=== PATIENT | female | born 1975 | race Caucasian/White ===

== ENCOUNTER 2016-08-15 00:05 | Emergency (ER) | payer BC, OTHER ==
[2016-08-15] MEDS ORDERED: oxyCODONE/ACET 5/325 Prepack 4 PO ONE (01:03)
[2016-08-15] MEDS ORDERED: KETOROLAC 60 MG/2 ML VIAL ONE (01:03)
[2016-08-15] MEDS ORDERED: CHERRY SYRUP 10 ML UDC PO ONE (01:03)
[2016-08-15] MEDS ORDERED: DEXAMETHASONE 10 MG/ML VIAL ONE (01:03)
[2016-08-15] MEDS ORDERED: ACETAMINOPHEN 160 MG/5 ML SUSP UDC ONE (01:59)
== END 2016-08-15 01:40 | disposition home or self-care (01) ==
DX: M79.674 Pain in right toe(s) (principal); F17.200 Nicotine dependence, unspecified, uncomplicated
CPT/HCPCS: 96372; 99283; A9270

== ENCOUNTER 2017-02-16 11:10 | Day surgery (SDC) | payer BC ==
[2017-02-16 11:41] LABS: BILIRUBIN,URINE NEGATIVE (NEGATIVE)
[2017-02-16 11:52] LABS: HCG UR QUAL NEGATIVE; UA w/ MICROSCOPIC CHARGE YES
[2017-02-16 11:53] LABS: WBC,URINE 0-3 /HPF (0-5)
[2017-02-16 11:54] LABS: UR CULTURE IF IND NOT INDICATED
[2017-02-16] MEDS ORDERED: KETOROLAC 60 MG/2 ML VIAL IM STA (13:19)
[2017-02-16] MEDS ORDERED: KETOROLAC 60 MG/2 ML VIAL ONE (13:26)
--- NOTE | 2017-02-16 13:27 | ED Physician Documentation ---
History of Present Illness - Stated complaint Stated Complaint: FEMALE /ABD PX - Chief complaint Chief Complaint: Abd Pain - Additonal information Additional information: hx from pt 41 f denies preg s/p tubal to ER with 15 days of heavy vag bleed and pelvic pain Last nl menses was end December/january this bleeding started mid January at one point changing pad or tampon q 1hr now just spotting pelvic pain is a pressure as if something is falling out no fever + nausea no vag dc denies any chance of STD has not had a pelvic exam for 20 years and prefers not to have one today either but will reconsider if needed after her ultrasound Review of Systems Constitutional: denies: Fever Cardiac: denies: Chest pain / pressure Respiratory: denies: Dyspnea GI: denies: Abdominal Pain : reports: Vaginal bleeding, Control (tubal). 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: section - Present Medications Home Medications: Ambulatory Orders Medication Instructions Recorded Confirmed Albuterol Sulfate [Proair Hfa] 8.5 gm IH TID 04/06/13 02/16/17 - Allergies Allergies/Adverse Reactions: Allergies Allergy/AdvReac Type Severity Reaction Status Date / Time codeine [Codeine] Allergy Hives Verified 11/12/13 19:59 - Social History Does the pt smoke?: Yes Smoking Status: Current every day smoker Does the pt have substance abuse?: No PD ED PE NORMAL - Vitals Vital signs reviewed: Yes - Neck Neck: Supple, no meningeal sign - Cardiac Cardiac: RRR - Respiratory Respiratory: No respiratory distress, Clear bilaterally - Abdomen Abdomen: Soft, Other (mod lower abd TTP s peritoneal signs) - Female Female : Pt declined - Derm Derm: Normal color - Neuro Neuro: Alert and oriented X 3 Results - Vitals Vitals: Vital Signs - 24 hr 02/16/17 02/16/17 02/16/17 11:12 13:32 15:30 Temperature 36.8 C 37.0 C Heart Rate 80 78 65 Respiratory 17 18 Rate Blood Pressure 190/103 H 150/82 H 183/110 H O2 Saturation 99 97 99 02/16/17 02/16/17 02/16/17 17:25 17:28 17:31 Temperature Heart Rate 72 67 Respiratory 20 Rate Blood Pressure 181/105 H 119/74 O2 Saturation 100 97 02/16/17 17:40 Temperature Heart Rate 66 Respiratory 14 Rate Blood Pressure O2 Saturation Oxygen O2 Source Room air - Labs Labs: Laboratory Tests 02/16/17 02/16/17 11:20 13:33 WBC 9.9 RBC 4.61 Hgb 13.5 Hct 40.9 MCV 88.6 MCH 29.2 MCHC 33.0 RDW 13.4 Plt Count 272 MPV 9.0 Neut # 6.1 Lymph # 3.1 [place] # 0.6 Eos # 0.1 Baso # 0.0 Absolute Nucleated RBC 0.00 Nucleated RBCs 0.0 Urine Color YELLOW Urine Clarity HAZY Urine pH 7.0 Ur Specific [place] 1.020 Urine Protein NEGATIVE Urine Glucose (UA) NEGATIVE Urine Ketones NEGATIVE Urine Occult Blood LARGE H Urine Nitrite NEGATIVE Urine Bilirubin NEGATIVE Urine Urobilinogen 0.2 (NORMAL) Ur Leukocyte Esterase NEGATIVE Urine RBC 6-10 H Urine WBC 0-3 Ur Squamous Epith Cells MOD Squamous H Urine Bacteria Few Ur Microscopic Review INDICATED Urine Culture Comments NOT INDICATED Urine HCG, Qual NEGATIVE - Rads (name of study) pelvic sono with doppler Radiology: See rad report (heterogeneous endometrium, probable 8 cm hemorrhagic right ovarian cyst with some periph blood flow or less likely a posterior leiomyoma (per d/w rad)) PD MEDICAL DECISION MAKING - ED course ED course: Dr Daniel to ER to see pt and will take her to the OR Departure - Departure Disposition: ED Transfer to [facility] Clinical Impression: Hemorrhagic ovarian cyst, Vaginal bleeding Discharge Date/Time: 02/16/17 18:11
[2017-02-16 13:47] LABS: BASOPHILS % (AUTO) 0.5 %; EOSINOPHILS # (AUTO) 0.1 10^3/uL (0.0-0.7); EOSINOPHILS % (AUTO) 1.2 %; HCT - HEMATOCRIT 40.9 % (37.0-47.0); HGB - HEMOGLOBIN 13.5 g/dL (12.0-16.0); LYMPHOCYTES # (AUTO) 3.1 10^3/uL (1.5-3.5); LYMPHOCYTES % (AUTO) 31.4 %; MEAN CORPUSCULAR HEMOGLOBIN 29.2 pg (27.0-31.0); MEAN CORPUSCULAR VOLUME 88.6 fL (81.0-99.0); MONOCYTES # (AUTO) 0.6 10^3/uL (0.0-1.0); MONOCYTES % (AUTO) 5.9 %; NEUTROPHILS # (AUTO) 6.1 10^3/uL (1.5-6.6); RED BLOOD COUNT 4.61 10^6/uL (4.20-5.40); RED CELL DISTRIBUTION WIDTH 13.4 % (12.0-15.0); UNCORRECTED WHITE BLOOD COUNT 9.9 x10^3/uL; WHITE BLOOD COUNT 9.9 x10^3/uL (4.8-10.8)
[2017-02-16] MEDS ORDERED: SODIUM CHLORIDE 0.9% 1,000 ML IV ONE (15:36)
[2017-02-16] MEDS ORDERED: HYDROmorphone 1 MG/ML SYRINGE IVP STA (15:36)
[2017-02-16] MEDS ORDERED: ONDANSETRON 4 MG/2 ML VIAL IVP STA (15:36)
[2017-02-16] MEDS ORDERED: ONDANSETRON 4 MG/2 ML VIAL ONE (15:47)
[2017-02-16] MEDS ORDERED: HYDROmorphone 1 MG/ML SYRINGE ONE (15:47)
[2017-02-16] MEDS ORDERED: IPRATROPIUM/ALBUTEROL 3 ML NEB INH STA (17:31)
[2017-02-16 17:32] VITALS: BP 119/74
[2017-02-16] MEDS ORDERED: SCOPOLAMINE PATCH TOP ONE (17:55)
[2017-02-16] MEDS ORDERED: LACTATED RINGERS 1,000 ML IV ONE ×2 (18:14→19:30)
[2017-02-16] MEDS ORDERED: MIDAZOLAM 2 MG/2 ML VIAL IVP ONE (18:15)
[2017-02-16] MEDS ORDERED: LABETALOL 5 MG/1 ML 20 ML MDV IV ONE (18:15)
[2017-02-16] MEDS ORDERED: SUCCINYLCHOLINE 200 MG/10 ML VIAL IVP ONE (18:15)
[2017-02-16] MEDS ORDERED: GLYCOPYRROLATE 1 MG/5 ML VIAL IVP ONE (18:15)
[2017-02-16] MEDS ORDERED: KETOROLAC 30 MG/ML VIAL IVP ONE (18:15)
[2017-02-16] MEDS ORDERED: ROCURONIUM 50 MG/5 ML VIAL IVP ONE (18:15)
[2017-02-16] MEDS ORDERED: METOCLOPRAMIDE 10 MG/2 ML VIAL IVP ONE (18:15)
[2017-02-16] MEDS ORDERED: ONDANSETRON 4 MG/2 ML VIAL IVP ONE (18:15)
[2017-02-16] MEDS ORDERED: ACETAMINOPHEN 1,000 MG/100 ML VIAL IV ONE (18:15)
[2017-02-16] MEDS ORDERED: DEXAMETHASONE 4 MG/ML VIAL IVP ONE (18:15)
[2017-02-16] MEDS ORDERED: ceFAZolin 1 GM VIAL IV ONE (18:15)
[2017-02-16] MEDS ORDERED: NEOSTIGMINE 1 MG/1 ML 10 ML MDV IVP ONE (18:15)
[2017-02-16] MEDS ORDERED: fentaNYL 100 MCG/2 ML VIAL IVP ONE (18:15)
[2017-02-16] MEDS ORDERED: LIDOCAINE-MPF 2% 5 ML VIAL IM ONE (18:15)
[2017-02-16] MEDS ORDERED: PROPOFOL 200 MG/20 ML VIAL IVP ONE (18:15)
--- NOTE | 2017-02-16 18:44 | Ultrasound Report ---
PELVIC ULTRASOUND WITH TRANSVAGINAL AND DOPPLER: 02/16/2017 CLINICAL INDICATION: Severe pain, heavy bleeding. TECHNIQUE: Transabdominal pelvic ultrasound performed for global evaluation. Transvaginal pelvic ultrasound performed for detailed evaluation. Real-time scanning performed and static images obtained. The uterus is anteverted, measuring 14.9 cm. The visualized endometrium appears heterogeneous. There is either a pedunculated subserosal posterior leiomyoma or a large hemorrhagic right ovarian cyst, measuring 8.2 x 7.5 x 7.0 cm. Due to patient's ongoing pain, this could not be definitively from the uterus with probe pressure. The left ovary measures 3.0 x 2.2 x 1.9 cm , and appears unremarkable. No free fluid is present. IMPRESSION: HETEROGENEOUS ENDOMETRIUM. EITHER A LARGE POSTERIOR SUBSEROSAL LEIOMYOMA OR A LARGE HEMORRHAGIC RIGHT OVARIAN CYST. EVALUATION IS LIMITED BY PATIENT'S PAIN. JOB #: [id number] EXT JOB #: [id number]
[2017-02-16] MEDS ORDERED: BUPIVACAINE 0.25%-EPI 1:200000 PF 30 ML VIAL SUBQ ONE (19:57)
[2017-02-16] MEDS ORDERED: oxyCODONE/ACET 5/325 Prepack 4 PO STA (21:31)
--- NOTE | 2017-02-17 00:50 | PREOP HISTORY & PHYSICAL ---
DATE OF ADMISSION/SURGERY: 02/16/2017 IDENTIFICATION: This is a 41-year-old, G4, P4 female whose last menstrual period started in mid January of this year. She complains of abdominal pain midline in location. She states that several months ago, she developed this pain, which is a baseline of 4 but accelerates to a 7. It stays in the lower pelvis, radiates to the back, worse with her periods, and helped by taking Motrin. She is also comp laining of bleeding, which is persistent. She initially had to change pads or tampons on an hourly b asis and now is changing about every 6-8 hours with minimal spotting. PAST MEDICAL HISTORY: Positive for asthma. SURGICAL HISTORY 1. Positive for laparoscopic tubal ligation. 2. She has also had a carpal tunnel procedure. 3. Four sections. ALLERGIES: None known. CURRENT MEDICATIONS 1. Albuterol. 2. Midol. 3. Motrin. HABITS: Patient smokes half a pack of cigarettes per day; drinks wine occasional; and THC rarely. FAMILY HISTORY: Father is unknown. Mother has had diabetes. 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 REVIEW OF SYSTEMS: Negative, with the exception of wearing glasses. PHYSICAL EXAMINATION VITAL SIGNS: Stable. HEENT: Pupils are equally round. Extraocular muscles are intact. HEART: Regular rate and rhythm without murmurs. LUNGS: Diffuse wheezes without, which are very strong in nature. ABDOMEN: Midline lower umbilical scar, which is well healed. She has bowel sounds throughout. Ther e is tenderness in the suprapubic area. PELVIC: Examination shows cervical motion tenderness, and there is tenderness in the uterus itself. EXTREMITIES: There is no calf tenderness. STUDIES Ultrasound is reviewed and showed evidence of what appeared to be an 8 cm adnexal mass. The lining o f the uterus appeared to be irregular. IMPRESSION: A 41-year-old, G4, P4 female with an 8 cm adnexal mass, as well as thickened endometrium . PLAN: We will perform hysteroscopy with dilatation and curettage, laparoscopy with salpingo-oophorec stephanie. Risks and benefits were explained to the patient, including those but not limited to bleeding, infection, injury to pelvic organs which include the uterus, tubes, ovaries, bowel, bladder, and ure ters. She is aware of the potential for DVT with PE, as well as the possibility of having to proceed on with hysterectomy. JOB #: [id number] EXT JOB #:[id number]
--- NOTE | 2017-02-17 02:41 | OPERATIVE REPORT ---
DATE OF SURGERY: 02/16/2017 00:00:00 PREOPERATIVE DIAGNOSES 1. An 8 cm adnexal mass. 2. Menorrhagia. 3. Thickened endometrium. POSTOPERATIVE DIAGNOSIS: An 8 cm fibroid uterus with thickened endometrium, submucosal fibroid. Normal ovaries with omental adhesions to the anterior abdominal wall. PROCEDURE: Diagnostic hysteroscopy with dilatation and curettage, sharp and suction, with laparoscopy with lysis of omental adhesions. SURGEON: Simeon Daniel MD ANESTHESIA: General via endotracheal tube. FINDINGS: A large fibroid uterus with evidence of submucosal fibroid. Status post laparoscopic tubal ligation. COMPLICATIONS: None. ESTIMATED BLOOD LOSS: 100 mL. SPECIMENS FOR PATHOLOGY: Endometrial curettings. PROCEDURE IN DETAIL: Following adequate endotracheal anesthesia, patient was placed in a dorsal lithotomy position and Gildardo stirrups. At this point, a timeout was performed, when patient was identified as well as risks, allergies, and concerns. She was then prepped and draped in the usual fashion. A speculum was placed in the vagina; cervix visualized and noted to reside high in the pelvic cavity. This was grasped with a single-toothed tenaculum, at which time there was evidence of clot noted in the cervical os. The cervix was dilated to a size 8 mm dilator, and at this point, it was sounded to 8 cm. A suction cath was introduced, at which time a moderate amount of blood and clot was removed. The hysteroscope was introduced, and there was evidence of what appeared to be a posterior submucosal fibroid. The fundus was difficult to be seen because of its presence. The endometrial cavity was sharply curetted in all quadrants. At this point, a HUMI catheter was placed and inflated. The operative gloves were changed, and then a stab wound was made in the subumbilical area with a # 11 blade following local anesthesia with 0.25% Marcaine with epinephrine. A 5 mm short trocar and sheath was placed, but I was not able to introduce in the abdominal cavity, so a 5 mm long trocar was placed under direct visualization. The peritoneal cavity was entered and then insufflated with carbon dioxide. A port was placed in the right lower quadrant following local anesthesia with 0.25 % Marcaine and a skin incision with the #11 blade. The pelvis was inspected. The ovaries appeared to be normal. There was evidence of previous tubal ligation. However, the uterus was bulbous and representing a 8-10 cm size. This explained the ultrasonic findings. The appendix appeared to be normal. There was evidence of omental adhesions to the anterior abdominal wall at the site of her previous scar from her sections. At this point, it was decided that the procedure would be terminated. The broad ligament was inspected on both sides, and these appeared to be somewhat restrictive, doing a laparoscopic hysterectomy would be potentially somewhat challenging because of the size of the fibroid, as well as the fact that the patient never had any vaginal deliveries, and the vagina was not dilated. At this point, the procedure was terminated. The subumbilical port was removed. The CO2 was allowed to escape, and there was evidence of good baker of gas. The other trocar was removed. The skin incision was closed using 4-0 Monocryl subcuticular. This was then dressed with Dermabond. The HUMI catheter was deflated, then removed from the vagina. Patient tolerated the procedure well and was taken to recovery in stable condition. SPONGE AND NEEDLE COUNTS: Correct. JOB #: [id number] EXT JOB #:[id number] MTDD
== END 2017-02-16 23:45 | disposition home or self-care (01) ==
LOC: ED 11:10 → SDS 17:30 → OBS 21:18 → SDS 23:45
PROVIDERS: ATTEND Obstetrics & Gynecology
PROC: 0UDB8ZZ Extraction of Endometrium, Via Natural or Artificial Opening Endoscopic (ICD-10-PCS; principal; 2017-02-16 17:30)
PROC: 0DNS4ZZ (ICD-10-PCS; 2017-02-16 17:30)
DX: D25.0 Submucous leiomyoma of uterus (principal); R93.8 Abnormal findings on diagnostic imaging of other specified body structures; N73.6 Female pelvic peritoneal adhesions (postinfective); N92.0 Excessive and frequent menstruation with regular cycle; F17.200 Nicotine dependence, unspecified, uncomplicated; J45.909 Unspecified asthma, uncomplicated
CPT/HCPCS: 36415; 49329; 58558; 76830; 76856; 81001; 81025; 85025; 93975; 94640; 96372; 96374; 96375; 99284; J0131; J1170; J3490; J7120; J7620; 81003; 87086

== ENCOUNTER 2017-03-15 11:54 | Outpatient (CLI) | payer BC ==
[2017-03-15 12:36] LABS: BASOPHILS % (AUTO) 0.5 %; EOSINOPHILS # (AUTO) 0.1 10^3/uL (0.0-0.7); EOSINOPHILS % (AUTO) 1.5 %; HCT - HEMATOCRIT 37.8 % (37.0-47.0); HGB - HEMOGLOBIN 12.9 g/dL (12.0-16.0); LYMPHOCYTES # (AUTO) 3.2 10^3/uL (1.5-3.5); LYMPHOCYTES % (AUTO) 32.5 %; MEAN CORPUSCULAR HEMOGLOBIN 29.7 pg (27.0-31.0); MEAN CORPUSCULAR HGB CONC 34.1 g/dL (32.0-36.0); MEAN CORPUSCULAR VOLUME 87.2 fL (81.0-99.0); MEAN PLATELET VOLUME 8.8 fL (7.9-10.8); MONOCYTES # (AUTO) 0.6 10^3/uL (0.0-1.0); MONOCYTES % (AUTO) 6.2 %; NEUTROPHILS # (AUTO) 5.9 10^3/uL (1.5-6.6); NEUTROPHILS % (AUTO) 59.3 %; RED BLOOD COUNT 4.34 10^6/uL (4.20-5.40)
[2017-03-15 12:42] LABS: CALCIUM 8.7 mg/dL (8.5-10.3); CREATININE 0.6 mg/dL (0.4-1.0); POTASSIUM 3.5 mmol/L (3.5-5.0)
--- NOTE | 2017-03-15 15:03 | XRAY Report ---
TWO-VIEW CHEST: 03/15/2017 CLINICAL INDICATION: Pre-op hysterectomy, dysmenorrhea, pelvic pain. FINDINGS: Frontal and lateral views of the chest are compared to previous films of 11/12/2013. The cardiac silhouette is within normal limits. The lungs are clear. No effusion or pneumothorax is pre sent. IMPRESSION: NORMAL CHEST. JOB #: [id number] EXT JOB #:[id number]
== END 2017-03-15 11:55 | disposition home or self-care (01) ==
LOC: DI 11:54
PROVIDERS: ATTEND Obstetrics & Gynecology
DX: Z01.818 Encounter for other preprocedural examination (principal); R10.2 Pelvic and perineal pain; N94.4 Primary dysmenorrhea; D25.9 Leiomyoma of uterus, unspecified; N92.0 Excessive and frequent menstruation with regular cycle
CPT/HCPCS: 36415; 71020; 80048; 85025; 86850; 86900; 86901

== ENCOUNTER 2017-03-17 06:09 | Inpatient (IN) | payer BC ==
--- NOTE | 2017-03-15 12:46 | PREOP HISTORY & PHYSICAL ---
DATE OF ADMISSION/SURGERY: 03/17/2017. IDENTIFICATION: The patient is a 41-year-old, 4, para 4 female. CHIEF COMPLAINT 1. Menorrhagia. 2. Fibroid uterus. HISTORY OF PRESENT ILLNESS: The patient had a laparoscopy done on 02/15, at which time she was suspected of having an ovarian mass. Upon introducing the laparoscope, there was evidence of an 8 cm fibroid and the ovaries and tubes looked well. At that point, the procedure was terminated. It was decided to have the patient return for an open laparotomy. She states over the last year she has been having problems with increasingly heavy periods. She will pass clots and complain of pelvic pressure. She has had all of her children via C- section. Thus, was felt not to be a good candidate for a laparoscopic-assisted vaginal hysterectomy. The patient is aware that should her uterus be removed, that she will never be able to have children again. PAST MEDICAL HISTORY: Positive for asthma. PAST SURGICAL HISTORY: section x4, as well as diagnostic laparoscopy, tubes and ureters, as well as tonsillectomy and adenoidectomy. ALLERGIES: NONE KNOWN. CURRENT MEDICATIONS 1. Proventil inhaler. 2. Motrin for pain control. 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 REVIEW OF SYSTEMS: Negative at this time. PHYSICAL EXAMINATION VITAL SIGNS: Blood pressure is 130/99. Weight is 224, BMI is 41. HEENT: Pupils are equal, round. Extraocular muscles are intact. NECK: Thyroid is not palpably enlarged. HEART: Regular rate and rhythm without murmurs. LUNGS: [place] are clear without rales or wheezes. ABDOMEN: Soft. There is evidence of midline incisions from her previous section. There is no evidence of any hernias beginning. EXTREMITIES: There is No calf or CVA tenderness noted at this particular time. IMPRESSION: A 41-year-old G4, P4 female with a fibroid uterus causing menorrhagia. She is scheduled for an open laparotomy with abdominal hysterectomy with leaving the ovaries in if possible. The patient is aware of the risks of surgery, which include those, but not limited to bleeding, infection, injury to the pelvic organs, which include the uterus, tubes, ovaries , bowel, bladder, and ureters. She is aware of the potential for DVT with PE, as well as postop adhesions, which can cause pain and bowel obstruction. JOB #: [id number] EXT JOB #:[id number]
[2017-03-17 06:39] LABS: HCG UR QUAL NEGATIVE
[2017-03-17] MEDS ORDERED: LIDOCAINE 1% 50 ML MDV ONE (06:53)
[2017-03-17] MEDS ORDERED: LACTATED RINGERS 1,000 ML IV ONE ×3 (07:02→10:50)
[2017-03-17] MEDS ORDERED: SCOPOLAMINE PATCH TOP ONE (07:09)
[2017-03-17] MEDS ORDERED: ROCURONIUM 50 MG/5 ML VIAL IVP ONE (07:25)
[2017-03-17] MEDS ORDERED: NEOSTIGMINE 1 MG/1 ML 10 ML MDV IVP ONE (07:25)
[2017-03-17] MEDS ORDERED: GLYCOPYRROLATE 1 MG/5 ML VIAL IVP ONE (07:25)
[2017-03-17] MEDS ORDERED: hydrALAZINE INJ 20 MG/ML VIAL IVP ONE (07:25)
[2017-03-17] MEDS ORDERED: ONDANSETRON 4 MG/2 ML VIAL IVP ONE (07:25)
[2017-03-17] MEDS ORDERED: fentaNYL 100 MCG/2 ML VIAL IVP ONE (07:25)
[2017-03-17] MEDS ORDERED: LIDOCAINE-MPF 2% 5 ML VIAL IM ONE (07:25)
[2017-03-17] MEDS ORDERED: METOPROLOL 5 MG/5 ML VIAL IVP ONE (07:25)
[2017-03-17] MEDS ORDERED: ACETAMINOPHEN 1,000 MG/100 ML 100 ML IV ONE (07:25)
[2017-03-17] MEDS ORDERED: DEXAMETHASONE 4 MG/ML VIAL IVP ONE (07:25)
[2017-03-17] MEDS ORDERED: SUCCINYLCHOLINE 200 MG/10 ML VIAL IVP ONE (07:25)
[2017-03-17] MEDS ORDERED: KETOROLAC 30 MG/ML VIAL IVP ONE (07:25)
[2017-03-17] MEDS ORDERED: HYDROmorphone 1 MG/ML SYRINGE IVP ONE (07:25)
[2017-03-17] MEDS ORDERED: PHENYLEPHRINE 10 MG/ML VIAL IV ONE (07:25)
[2017-03-17] MEDS ORDERED: MIDAZOLAM 2 MG/2 ML VIAL IVP ONE (07:25)
[2017-03-17] MEDS ORDERED: FUROSEMIDE 40 MG/4 ML VIAL IVP ONE (07:25)
[2017-03-17] MEDS ORDERED: PROPOFOL 200 MG/20 ML VIAL IVP ONE (07:25)
[2017-03-17] MEDS ORDERED: ceFAZolin 3 GM/20 ML SYRINGE IVP SCH (08:00)
[2017-03-17] MEDS ORDERED: ONDANSETRON 4 MG/2 ML VIAL IVP PRN (11:15)
[2017-03-17] MEDS ORDERED: LORazepam 2 MG/ML SYRINGE IVP PRN (11:15)
[2017-03-17] MEDS ORDERED: LORazepam 2 MG/ML SYRINGE ONE (11:24)
--- NOTE | 2017-03-17 11:47 | OPERATIVE REPORT ---
Operative Report - General Admit Date: 03/17/17 Procedure Date: 03/17/17 Planned Procedure: TG with BS left oopherectemy and cysto Pre-Op Diagnosis: Menorrhagia, fibroid uterus Procedure Performed: TG, BS Left oopherectomy. Cysto Post Op Diagnosis: Same - Procedure Note Primary Surgeon: Simeon Daniel MD Secondary Surgeon: Simeon Berkowitz MD Anesthesia Technique: General ET tube Pathology: Uterus Tubes and left overy IV Fluids (mL): 2,000 Estimated Blood Loss (mL): 300 Urine Output (mL): 400 Complications: HTN
[2017-03-17] MEDS: fentaNYL 100 MCG/2 ML VIAL ONE ×2 (11:59→12:15)
--- NOTE | 2017-03-17 12:48 | XRAY Report ---
TWO VIEW ABDOMEN: 03/17/2017 CLINICAL INDICATION: Incorrect count. FINDINGS: Supine and cross-table lateral views of the abdomen demonstrate no evidence of a radiopaqu e foreign body in the visualized portions. IMPRESSION: NO EVIDENCE OF RETAINED SURGICAL INSTRUMENT. CRITICAL TEST: RESULTS CALLED TO DR. DE LA CRUZ IN THE OPERATING ROOM ON 03/17/2017 AT 1055 HOURS. JOB #: [id number] EXT JOB #:
[2017-03-17] MEDS ORDERED: cloNIDine 0.1 MG TABLET PO PRN (13:03)
[2017-03-17] MEDS: ACETAMINOPHEN 1,000 MG/100 ML 100 ML IV SCH ×3 (13:18→23:48)
[2017-03-17] MEDS: LACTATED RINGERS 1,000 ML IV SCH ×3 (13:22→22:04)
[2017-03-17] MEDS: MORPHINE PCA 50 MG IV PRN (14:00)
[2017-03-17] MEDS ORDERED: SODIUM CHLORIDE FLUSH 0.9% 10 ML SYRINGE IVP ONE ×3 (14:15→15:33)
[2017-03-17] MEDS: MORPHINE 2 MG/ML SYRINGE IVP PRN (14:47)
--- NOTE | 2017-03-17 14:48 | CONSULTATION NOTE ---
Referring Provider Name of Referring Provider:: Simeon Johnson Consult Date: 03/17/17 Chief Complaint - Chief Complaint Chief Complaint: uncontrolled HTN History of Present Illness - Admitted From Admitted From:: medical floor - History of Present Illness HPI Comment/Other: This is a 41-year-old Cauc[place] female with significant past medical history of HTN, Asthma, gout, current cigarette smoking. She had a laparoscopy on 02/15/17 , at the time patient was suspected to have ovarian mass. Upon procedure, patient was found to have 8 cm fibroid, and ovaries and tubes appeared well. The procedure was terminated. Today patient was status post of procedure of total abdominal hysterectomy with bilateral salpingectomy, left oophorectomy, cystoscopy. Patient has history of high blood pressure but not on any medication. In the intraoperative patient developed HTN at 210-218/120-125. We are consulted for medical management. History - Past Medical History Cardiovascular: reports: None Respiratory: reports: Asthma, Pneumonia Endocrine/Autoimmune: reports: None GI: reports: None, Cholelithiasis : reports: None HEENT: reports: None, Chronic vision loss Psych: reports: None Musculoskeletal: reports: None, Gout Derm: reports: None MRSA Hx?: No - Past Surgical History Ortho: reports: Carpal Tunnel surgery /[employer]: reports: section, Dilation and currettage, Tubal ligation Meds/Allgy - Home Medications Home Medications: Ambulatory Orders Medication Instructions Recorded Confirmed Albuterol Sulfate [Proair Hfa] 8.5 gm IH TID 04/06/13 03/15/17 Ibuprofen [Motrin] 800 mg PO Q8H PRN 03/15/17 03/15/17 oxyCODONE/ACET 5/325 [Percocet 5 1 each PO Q6HR PRN 03/15/17 03/15/17 mg/325 mg] Bupropion HCl [Bupropion HCl Sr] 150 mg PO BID 03/17/17 03/17/17 - Allergies Allergies/Adverse Reactions: Allergies Allergy/AdvReac Type Severity Reaction Status Date / Time No Known Drug Allergies Allergy Verified 03/15/17 12:34 Review of Systems - Other Findings Other Findings: patient is just status post procedure. she is alert and conformably sleeping now Exam - Vital Signs Reviewed Vital Signs: Yes Vital Signs: Vital Signs x48h Temp Pulse Resp BP Pulse Ox 03/17/17 13:29 20 172/99 H 96 03/17/17 13:15 20 176/101 H 95 03/17/17 13:00 36.7 C 87 20 178/93 H 96 03/17/17 12:28 96 03/17/17 12:05 94 03/17/17 12:00 94 03/17/17 11:55 94 03/17/17 11:50 94 03/17/17 11:45 92 03/17/17 11:40 96 03/17/17 11:35 96 03/17/17 11:30 95 03/17/17 11:25 95 03/17/17 11:20 94 03/17/17 11:15 97 03/17/17 11:10 97 03/17/17 11:04 97 - Physical Exam General Appearance: positive: No acute distress, Alert Eyes Bilateral: positive: Normal inspection, PERRL. negative: No lid inflammation, Conjunctivae nml ENT: positive: ENT inspection nml, Pharynx nml, No signs of dehydration. negative: Purulent nasal drainage, Pharyngeal erythema Neck: positive: Nml inspection, No JVD, Trachea midline. negative: Lymphadenopathy (R), Lymphadenopathy (L), Stiff neck, Swelling/bruising Respiratory: positive: Chest non-tender, No respiratory distress, Breath sounds nml. negative: Wheezes, Rales, Rhonchi Cardiovascular: positive: Regular rate & rhythm, No murmur, No gallop. negative : Bradycardia, Systolic murmur, Diastolic murmur Abdomen: positive: Non-tender, Nml bowel sounds, No distention. negative: Tenderness, Guarding, Rebound Back: positive: Nml inspection. negative: CVA tenderness (R), CVA tenderness (L ) Skin: positive: Color nml, Warm, Dry. negative: Diaphoresis, Pallor Extremities: positive: Non-tender, Full ROM, Nml appearance. negative: Calf tenderness, Joint swelling, Concha's sign/cords Neurologic/Psychiatric: positive: Sensation nml. negative: Facial droop, Slurred/abnml speech, Depressed mood/affect Conclusion/Plan - Diagnosis Diagnosis: uncontrolled HTN. asthma. current cigarette smoker. abdominal pain status post procedure - Plan Plan: 1, controlled HTN: add Clonidine and Vasotec PRN now, vital and tele monitor. 2, Asthma: reconciliation of home meds 3, abdominal pain, pain control. 4, current cigarette smoking, nicotine patch, wellbutrin. we will follow up. Thank you for the consulting.
[2017-03-17] MEDS ORDERED: ENALAPRILAT 1.25 MG/ML VIAL IVP PRN (15:07)
[2017-03-17] MEDS ORDERED: ALBUTEROL NEB 2.5 MG/3 ML INH SCH (15:10)
[2017-03-17 15:51] LABS: BASOPHILS # (AUTO) 0.1 10^3/uL (0.0-0.1); BASOPHILS % (AUTO) 0.2 %; HCT - HEMATOCRIT 37.7 % (37.0-47.0); HGB - HEMOGLOBIN 12.8 g/dL (12.0-16.0); LYMPHOCYTES # (AUTO) 1.1 10^3/uL (1.5-3.5); MEAN CORPUSCULAR HEMOGLOBIN 30.1 pg (27.0-31.0); MEAN CORPUSCULAR VOLUME 88.4 fL (81.0-99.0); MONOCYTES # (AUTO) 0.8 10^3/uL (0.0-1.0); MONOCYTES % (AUTO) 3.1 %; NEUTROPHILS # (AUTO) 25.1 10^3/uL (1.5-6.6); NEUTROPHILS % (AUTO) 92.7 %; NUCLEATED RED BLOOD CELLS AUTO 0.1 /100WBC; RED BLOOD COUNT 4.27 10^6/uL (4.20-5.40); RED CELL DISTRIBUTION WIDTH 13.4 % (12.0-15.0); UNCORRECTED WHITE BLOOD COUNT 27.1 x10^3/uL; WHITE BLOOD COUNT 27.1 x10^3/uL (4.8-10.8)
[2017-03-17 16:05] LABS: ALBUMIN/GLOBULIN RATIO 1.2 (1.0-2.2); BILIRUBIN,TOTAL 0.6 mg/dL (0.2-1.0); CREATININE 0.5 mg/dL (0.4-1.0); MAGNESIUM 1.3 mg/dL (1.7-2.8); POTASSIUM 3.1 mmol/L (3.5-5.0); TOTAL PROTEIN 6.8 g/dL (6.7-8.2)
[2017-03-17 16:18] LABS: PLATELET ESTIMATE, MANUAL NORMAL (130-450,000) (NORMAL); PLATELET MORPHOLOGY NORMAL APPEARANCE (NORMAL)
[2017-03-17] MEDS ORDERED: MAGNESIUM SULFATE 1 GM in SODIUM CHLORIDE 0.9% 50 ML IV ONE (17:30)
[2017-03-17] MEDS: POTASSIUM CHLORIDE 20 MEQ TABLET PO SCH (17:41)
[2017-03-17] MEDS: buPROPion SR 150 MG TABLET PO SCH ×2 (21:17→21:20)
[2017-03-17] MEDS: ALBUTEROL NEB 2.5 MG/3 ML INH SCH (21:41)
[2017-03-17] MEDS ORDERED: LACTATED RINGERS 500 ML IV ONE (22:02)
[2017-03-18] MEDS: LACTATED RINGERS 1,000 ML IV SCH ×4 (03:26→23:43)
--- NOTE | 2017-03-18 03:56 | OPERATIVE REPORT ---
DATE OF SURGERY: 03/17/2017 00:00:00 PREOPERATIVE DIAGNOSES 1. Fibroid uterus. 2. Menorrhagia. POSTOPERATIVE DIAGNOSES 1. Fibroid uterus. 2. Menorrhagia. NAME OF PROCEDURE: Total abdominal hysterectomy with bilateral salpingectomy and left oophorectomy and cystoscopy. SURGEON: Simeon Daniel MD. INSTRUCTIONAL TECHNOLOGY SPECIALIST: Simeon Berkowitz MD. ANESTHESIA: General via endotracheal tube. ESTIMATED BLOOD LOSS: 300 mL. INTRAVENOUS FLUIDS: 300 mL. SPECIMENS FOR PATHOLOGY: Uterus with bilateral tubes and left ovary. PROCEDURE: Following adequate endotracheal anesthesia, the patient was placed in the supine position. A La catheter was placed under sterile condition. At this point, she was prepped and draped in the usual fashion. The abdomen was taped up because of her pannus and then she was prepped and draped in the usual fashion. Following a time-out, which identified the patient's complaints, procedure, and allergies, the procedure was commenced. The old scar was excised in a vertical orientation. This was carried down to the fascia. Following this, the fascia was scored vertically and then it was entered high to avoid an injury to bowel or bladder. Roque scissors were used to extend excision superiorly and inferiorly. At this point, omentum was encountered through the incision. An O'Cameron-O'Story retractor was placed while padding the lateral blades blade with moist laps. A bladder retractor was then placed and then the bowel was packed away utilizing 4 lap sponges. The uterus was visualized. It was noted to fill most of the pelvic cavity. The corners were grasped bilaterally with Pean clamps. LigaSure was then utilized on the left hand side to cauterize and transect the utero-ovarian ligament, as well as the round ligament. There was some bleeding from the ovarian pedicle. This was treated with the LigaSure. Following this, was treated with a suture and it persisted in its bleeding. For this reason, the left ovary was taken out with the left tube also, utilizing a LigaSure. The incision site was inspected and no bleeding was noted. Then, utilizing the LigaSure carrying down the left broad ligament, this was then cauterized and transected down to about the level of the internal os of the cervix. The contralateral side was treated in an identical fashion. The utero-ovarian ligament was cauterized and transected. The round ligament was cauterized and transected. Then a suture was placed to assure good hemostasis. The broad ligament on the right hand side was then cauterized and transected. This was done as close to the uterus as possible to minimize the risk of injury to the ureter. This was carried all the way down to the internal os of the cervix. Then, the LigaSure was utilized to spread the anterior posterior leaves of the broad ligament and then across the lower uterine segment. This was cauterized and transected. The contralateral side was treated in an identical fashion. The bladder was pushed off the lower uterine segment. At this point, the uterine vessels were cross clamped with Armando clamps, ligated with Armando stitches of #0 Vicryl. Good hemostasis was observed. Pedicles were developed using a #10 blade. At this point, the uterus was noted to be blanched and so utilizing electrocautery, as well as Judy scissors, the uterus was amputated off the cervical stump about the level of the internal os. This was then set aside. The stump was then grasped utilizing a long José Manuel's. The transverse cervical uterosacral ligaments were then clamped. The pedicles were developed using a #10 blade and these were ligated with Armando stitches of #0 Vicryl. The anterior vagina was entered on the right hand side and then utilizing Judy scissors, the uterus was amputated from the apex of the vagina. Care was taken to stay as close to the cervix as possible to minimize any loss of vaginal length. This was sent for pathological evaluation. The vagina was then closed utilizing [id number] of #0 Vicryl. Good hemostasis was observed. There was evidence of good support of the vagina in the pelvic cavity. There was no evidence of any further bleeding from the bladder bed, the broad ligament, the uterine vessels, or the ovarian vessels. At this point, the fallopian tube was removed from the right ovary utilizing electrocautery. The ovary was inspected and good hemostasis was observed. At this point, the pelvis was irrigated with sterile water. There was no evidence of any bleeding coming from the surgical pedicles. At this point, the lap sponges were removed from the abdominal cavity. The O'Cameron-O'Story retractor was removed and then the peritoneum was closed with 2-0 Vicryl up to the arcuate semilunaris. At this point, the peritoneum was very close to the rectus fascia. The rectus fascia was then closed using a looped PDS all the way up to the umbilicus. Care was taken to include the peritoneum at the arcuate semilunaris. A FISH was utilized to keep the bowel and omental contents free from the closure. This was removed and the closure was closed in total. At this point, the subcutaneous tissue was inspected for bleeding, none was noted, so the subcutaneous tissue was closed utilizing a running 2-0 Vicryl. The skin was then closed using 4-0 Monocryl subcuticular, starting at the apexes of the incision and working to the midline. There was no evidence of any further bleeding from this area. At this point, a cystoscopy was performed by Dr. Berkowitz and there was evidence of methylene blue urine coming from both ureteral orifices. A wound VAC was then placed on the incision with evidence of good seal. A La catheter was left in the bladder. The patient tolerated the procedure well and was taken to recovery in stable condition. Sponge and needle counts were correct. JOB #: [id number] EXT JOB #:[id number] FLORECITA
[2017-03-18] MEDS: ACETAMINOPHEN 1,000 MG/100 ML 100 ML IV SCH ×4 (05:41→23:43)
[2017-03-18 06:03] LABS: BASOPHILS % (AUTO) 0.1 %; HCT - HEMATOCRIT 29.4 % (37.0-47.0); HGB - HEMOGLOBIN 9.9 g/dL (12.0-16.0); LYMPHOCYTES # (AUTO) 2.5 10^3/uL (1.5-3.5); LYMPHOCYTES % (AUTO) 14.1 %; MEAN CORPUSCULAR HGB CONC 33.8 g/dL (32.0-36.0); MEAN CORPUSCULAR VOLUME 88.5 fL (81.0-99.0); MEAN PLATELET VOLUME 9.3 fL (7.9-10.8); MONOCYTES # (AUTO) 1.5 10^3/uL (0.0-1.0); MONOCYTES % (AUTO) 8.4 %; NEUTROPHILS # (AUTO) 13.8 10^3/uL (1.5-6.6); NEUTROPHILS % (AUTO) 77.4 %; NUCLEATED RED BLOOD CELLS AUTO 0.1 /100WBC; RED BLOOD COUNT 3.32 10^6/uL (4.20-5.40); RED CELL DISTRIBUTION WIDTH 13.5 % (12.0-15.0); UNCORRECTED WHITE BLOOD COUNT 17.8 x10^3/uL; WHITE BLOOD COUNT 17.8 x10^3/uL (4.8-10.8)
[2017-03-18 06:23] LABS: ALBUMIN/GLOBULIN RATIO 1.1 (1.0-2.2); BILIRUBIN,TOTAL 0.5 mg/dL (0.2-1.0); CREATININE 0.6 mg/dL (0.4-1.0); POTASSIUM 3.7 mmol/L (3.5-5.0); TOTAL PROTEIN 5.8 g/dL (6.7-8.2)
[2017-03-18 06:26] LABS: HEMOGLOBIN A1C 0.37 g/dL
[2017-03-18] MEDS: ALBUTEROL NEB 2.5 MG/3 ML INH SCH ×3 (07:43→18:01)
--- NOTE | 2017-03-18 08:55 | PROVIDER PROGRESS NOTE ---
Subjective - Prog Note Date Prog Note Date: 03/18/17 - Subjective Pt reports feeling: Improved Subjective: pt's BP is controlled at 116/71 today morning. pt report pain at surgery site. pt is on TCA morphin pump. pt had urination after Lerma out per nurse report. Current Medications - Current Medications Current Medications: Active Medications Albuterol () 2.5 mg INH RTTID [facility] Last Admin: 03/18/17 07:43 Dose: 2.5 mg Bupropion HCl (Wellbutrin Sr) 150 mg PO BID [facility] Last Admin: 03/17/17 21:20 Dose: Not Given Clonidine HCl (Catapres) 0.1 mg PO Q8H PRN PRN Reason: Hypertensive Emergency Last Admin: 03/17/17 14:04 Dose: 0.1 mg Enalaprilat (Vasotec Inj) 1.25 mg IVP Q6HR PRN PRN Reason: Hypertensive Emergency Last Admin: 03/17/17 15:32 Dose: 1.25 mg Lactated Ringer's (Lr) 1,000 mls @ 150 mls/hr IV .Q6H40M [facility] Last Admin: 03/18/17 03:26 Dose: 150 mls/hr Acetaminophen (Ofirmev) 100 mls @ 400 mls/hr IV Q6H [facility] Last Admin: 03/18/17 05:41 Dose: 400 mls/hr Lorazepam (Ativan Inj) 2 mg IVP Q3HR PRN PRN Reason: Anxiety Last Admin: 03/17/17 12:55 Dose: 0.5 mg Morphine Sulfate (Morphine) 2 mg IVP Q30M PRN PRN Reason: PRIN Last Admin: 03/17/17 14:47 Dose: 2 mg Morphine Sulfate/Sodium Chloride (Morphine Bessemer Regulator (Use Bessemer Regulator Order Set)) 0 mg IV SLAG WORKER PRN; Protocol PRN Reason: PAIN Last Admin: 03/17/17 14:00 Dose: 50 mg Nicotine (Nicoderm) 1 patch TOP DAILY [facility] Ondansetron HCl (Zofran Inj) 4 mg IVP Q6H PRN PRN Reason: Nausea / Vomiting Last Admin: 03/17/17 14:15 Dose: 4 mg Potassium Chloride (K-Dur) 20 meq PO DAILYWM [facility] Last Admin: 03/17/17 17:41 Dose: 20 meq Albuterol Sulfate [Proair Hfa] 8.5 gm IH TID 04/06/13 Ibuprofen [Motrin] 800 mg PO Q8H PRN 03/15/17 oxyCODONE/ACET 5/325 [Percocet 5 mg/325 mg] 1 each PO Q6HR PRN 03/15/17 Bupropion HCl [Bupropion HCl Sr] 150 mg PO BID 03/17/17 Objective - Vital Signs/Intake & Output Reviewed Vital Signs: Yes Vital Signs: Vital Signs x48h Temp Pulse Pulse Pulse Resp BP BP 03/18/17 08:06 36.1 C L 87 18 116/71 03/18/17 07:45 95 20 03/18/17 06:00 36.4 C L 102 H 18 119/67 03/18/17 02:00 16 03/18/17 01:40 112 H 16 112/69 Pulse Ox 03/18/17 08:06 93 03/18/17 07:45 03/18/17 06:00 92 03/18/17 02:00 03/18/17 01:40 94 Intake & Output: Intake & Output 03/15/17 03/16/17 03/17/17 03/18/17 23:59 23:59 23:59 23:59 Intake Total 4328 1049 Output Total 2880 475 Balance 1448 574 - Objective General Appearance: positive: No acute distress, Alert. negative: Lethargic Eyes Bilateral: positive: Normal inspection, PERRL. negative: No lid inflammation, Conjunctivae nml ENT: positive: ENT inspection nml, Pharynx nml, No signs of dehydration. negative: Purulent nasal drainage, Pharyngeal erythema Neck: positive: Nml inspection, Thyroid nml, Trachea midline. negative: Thyromegaly, Lymphadenopathy (R), Lymphadenopathy (L), Stiff neck, Swelling/ bruising Respiratory: positive: Chest non-tender, No respiratory distress, Breath sounds nml. negative: Wheezes, Rales, Rhonchi Cardiovascular: positive: Regular rate & rhythm, No murmur, No gallop. negative : Tachycardia, Bradycardia, Systolic murmur, Diastolic murmur Peripheral Pulses: 2+ Radial (R), 2+ Radial (L), 2+ Dorsalis pedis (R), 2+ Dorsalis pedis (L) Abdomen: positive: Nml bowel sounds, No distention. negative: Guarding, Rebound Back: positive: Nml inspection. negative: CVA tenderness (R), CVA tenderness (L ) Skin: positive: Color nml, No rash, Warm, Dry. negative: Diaphoresis, Pallor, Skin rash Extremities: positive: Non-tender, Full ROM, Nml appearance, No pedal edema. negative: Pedal edema, Concha's sign/cords Neurologic/Psychiatric: positive: Oriented x3, Motor nml, Sensation nml, Mood/ affect nml. negative: Sensory loss, Facial droop, Slurred/abnml speech, Depressed mood/affect - Lab Results Fish Bones: 03/18/17 05:28 03/18/17 05:28 Other Labs: Lab Results x24hrs 03/18/17 03/18/17 03/18/17 Range/Units 05:28 05:28 05:28 WBC 17.8 H (4.8-10.8) x10^3/uL RBC 3.32 L (4.20-5.40) 10^6/uL Hgb 9.9 L (12.0-16.0) g/dL Hct 29.4 L (37.0-47.0) % MCV 88.5 (81.0-99.0) fL MCH 30.0 (27.0-31.0) pg MCHC 33.8 (32.0-36.0) g/dL RDW 13.5 (12.0-15.0) % Plt Count 278 (130-450) 10^3/uL MPV 9.3 (7.9-10.8) fL Neut # 13.8 H (1.5-6.6) 10^3/uL Lymph # 2.5 (1.5-3.5) 10^3/uL [place] # 1.5 H (0.0-1.0) 10^3/uL Eos # 0.0 (0.0-0.7) 10^3/uL Baso # 0.0 (0.0-0.1) 10^3/uL Absolute Nucleated RBC 0.01 x10^3/uL Nucleated RBCs 0.1 /100WBC Manual Slide Review Platelet Estimate (NORMAL) Platelet Morphology (NORMAL) RBC Morph Micro Appear (NORMAL) Sodium 135 (135-145) mmol/L Potassium 3.7 (3.5-5.0) mmol/L Chloride 102 (101-111) mmol/L Carbon Dioxide 26 (21-32) mmol/L Anion Gap 7.0 (6-13) BUN 15 (6-20) mg/dL Creatinine 0.6 (0.4-1.0) mg/dL Estimated GFR (MDRD) 110 (>89) Glucose 135 H (70-100) mg/dL Glycated Hemoglobin 5.4 (4.6-6.2) % Estim Average Glucose 108 H (70-100) Calcium 8.0 L (8.5-10.3) mg/dL Magnesium (1.7-2.8) mg/dL Total Bilirubin 0.5 (0.2-1.0) mg/dL AST 21 (10-42) IU/L ALT 24 (10-60) IU/L Alkaline Phosphatase 50 (42-121) IU/L Total Protein 5.8 L (6.7-8.2) g/dL Albumin 3.1 L (3.2-5.5) g/dL Globulin 2.7 (2.1-4.2) g/dL Albumin/Globulin Ratio 1.1 (1.0-2.2) 03/17/17 03/17/17 Range/Units 15:39 15:39 WBC 27.1 H (4.8-10.8) x10^3/uL RBC 4.27 (4.20-5.40) 10^6/uL Hgb 12.8 (12.0-16.0) g/dL Hct 37.7 (37.0-47.0) % MCV 88.4 (81.0-99.0) fL MCH 30.1 (27.0-31.0) pg MCHC 34.0 (32.0-36.0) g/dL RDW 13.4 (12.0-15.0) % Plt Count 338 (130-450) 10^3/uL MPV 9.0 (7.9-10.8) fL Neut # 25.1 H (1.5-6.6) 10^3/uL Lymph # 1.1 L (1.5-3.5) 10^3/uL [place] # 0.8 (0.0-1.0) 10^3/uL Eos # 0.0 (0.0-0.7) 10^3/uL Baso # 0.1 (0.0-0.1) 10^3/uL Absolute Nucleated RBC 0.02 x10^3/uL Nucleated RBCs 0.1 /100WBC Manual Slide Review Indicated Platelet Estimate NORMAL (130-450,000) (NORMAL) Platelet Morphology NORMAL APPEARANCE (NORMAL) RBC Morph Micro Appear NORMAL APPEARANCE (NORMAL) Sodium 135 (135-145) mmol/L Potassium 3.1 L (3.5-5.0) mmol/L Chloride 101 (101-111) mmol/L Carbon Dioxide 24 (21-32) mmol/L Anion Gap 10.0 (6-13) BUN 10 (6-20) mg/dL Creatinine 0.5 (0.4-1.0) mg/dL Estimated GFR (MDRD) 135 (>89) Glucose 233 H (70-100) mg/dL Glycated Hemoglobin (4.6-6.2) % Estim Average Glucose (70-100) Calcium 8.0 L (8.5-10.3) mg/dL Magnesium 1.3 L (1.7-2.8) mg/dL Total Bilirubin 0.6 (0.2-1.0) mg/dL AST 27 (10-42) IU/L ALT 31 (10-60) IU/L Alkaline Phosphatase 67 (42-121) IU/L Total Protein 6.8 (6.7-8.2) g/dL Albumin 3.7 (3.2-5.5) g/dL Globulin 3.1 (2.1-4.2) g/dL Albumin/Globulin Ratio 1.2 (1.0-2.2) Assessment/Plan - Problem List (1) HTN (hypertension) Impression: we asked to consult for HTN control. pt's BP is controlled at 116/71, HR 87, vital stable. continue current treatment vital and tele monitor per protocol (2) Pain Impression: pain at surgery site, pain control by TCA pump, follow up the surgeon. (3) Urine retention Impression: resolved, lerma was out, and pt had urination after lerma out.
--- NOTE | 2017-03-18 09:28 | PROVIDER PROGRESS NOTE ---
Subjective - General Admit Date: 03/17/17 Procedure Date: 03/17/17 Post Op Days: 1 Procedure Performed: TG with BS and left oopherectomy cysto - Review of Systems Wound/Incisions: positive: Dressing dry and intact General: positive: No symptoms Pulmonary: positive: Cough, Wheezing Gastrointestinal: negative: Flatus Objective - Patient Data Reviewed Vital Signs: Yes Vital Signs: Vital Signs x48h Temp Pulse Pulse Pulse Resp BP BP 03/18/17 08:06 36.1 C L 87 18 116/71 03/18/17 07:45 95 20 03/18/17 06:00 36.4 C L 102 H 18 119/67 03/18/17 02:00 16 03/18/17 01:40 112 H 16 112/69 Pulse Ox 03/18/17 08:06 93 03/18/17 07:45 03/18/17 06:00 92 03/18/17 02:00 03/18/17 01:40 94 Weight: Weight 03/16/17 03/17/17 03/18/17 23:59 23:59 23:59 Weight (kg) 100.5 kg Intake & Output: Intake and Output Totals x24h 03/16/17 03/17/17 03/18/17 23:59 23:59 23:59 Intake Total 4328 1049 Output Total 2880 475 Balance 1448 574 - Lab Results Lab Results: 03/18/17 05:28 03/18/17 05:28 Other Lab Results: Lab Results x24hrs 03/18/17 03/18/17 03/18/17 Range/Units 05:28 05:28 05:28 WBC 17.8 H (4.8-10.8) x10^3/uL RBC 3.32 L (4.20-5.40) 10^6/uL Hgb 9.9 L (12.0-16.0) g/dL Hct 29.4 L (37.0-47.0) % MCV 88.5 (81.0-99.0) fL MCH 30.0 (27.0-31.0) pg MCHC 33.8 (32.0-36.0) g/dL RDW 13.5 (12.0-15.0) % Plt Count 278 (130-450) 10^3/uL MPV 9.3 (7.9-10.8) fL Neut # 13.8 H (1.5-6.6) 10^3/uL Lymph # 2.5 (1.5-3.5) 10^3/uL [place] # 1.5 H (0.0-1.0) 10^3/uL Eos # 0.0 (0.0-0.7) 10^3/uL Baso # 0.0 (0.0-0.1) 10^3/uL Absolute Nucleated RBC 0.01 x10^3/uL Nucleated RBCs 0.1 /100WBC Manual Slide Review Platelet Estimate (NORMAL) Platelet Morphology (NORMAL) RBC Morph Micro Appear (NORMAL) Sodium 135 (135-145) mmol/L Potassium 3.7 (3.5-5.0) mmol/L Chloride 102 (101-111) mmol/L Carbon Dioxide 26 (21-32) mmol/L Anion Gap 7.0 (6-13) BUN 15 (6-20) mg/dL Creatinine 0.6 (0.4-1.0) mg/dL Estimated GFR (MDRD) 110 (>89) Glucose 135 H (70-100) mg/dL Glycated Hemoglobin 5.4 (4.6-6.2) % Estim Average Glucose 108 H (70-100) Calcium 8.0 L (8.5-10.3) mg/dL Magnesium (1.7-2.8) mg/dL Total Bilirubin 0.5 (0.2-1.0) mg/dL AST 21 (10-42) IU/L ALT 24 (10-60) IU/L Alkaline Phosphatase 50 (42-121) IU/L Total Protein 5.8 L (6.7-8.2) g/dL Albumin 3.1 L (3.2-5.5) g/dL Globulin 2.7 (2.1-4.2) g/dL Albumin/Globulin Ratio 1.1 (1.0-2.2) 03/17/17 03/17/17 Range/Units 15:39 15:39 WBC 27.1 H (4.8-10.8) x10^3/uL RBC 4.27 (4.20-5.40) 10^6/uL Hgb 12.8 (12.0-16.0) g/dL Hct 37.7 (37.0-47.0) % MCV 88.4 (81.0-99.0) fL MCH 30.1 (27.0-31.0) pg MCHC 34.0 (32.0-36.0) g/dL RDW 13.4 (12.0-15.0) % Plt Count 338 (130-450) 10^3/uL MPV 9.0 (7.9-10.8) fL Neut # 25.1 H (1.5-6.6) 10^3/uL Lymph # 1.1 L (1.5-3.5) 10^3/uL [place] # 0.8 (0.0-1.0) 10^3/uL Eos # 0.0 (0.0-0.7) 10^3/uL Baso # 0.1 (0.0-0.1) 10^3/uL Absolute Nucleated RBC 0.02 x10^3/uL Nucleated RBCs 0.1 /100WBC Manual Slide Review Indicated Platelet Estimate NORMAL (130-450,000) (NORMAL) Platelet Morphology NORMAL APPEARANCE (NORMAL) RBC Morph Micro Appear NORMAL APPEARANCE (NORMAL) Sodium 135 (135-145) mmol/L Potassium 3.1 L (3.5-5.0) mmol/L Chloride 101 (101-111) mmol/L Carbon Dioxide 24 (21-32) mmol/L Anion Gap 10.0 (6-13) BUN 10 (6-20) mg/dL Creatinine 0.5 (0.4-1.0) mg/dL Estimated GFR (MDRD) 135 (>89) Glucose 233 H (70-100) mg/dL Glycated Hemoglobin (4.6-6.2) % Estim Average Glucose (70-100) Calcium 8.0 L (8.5-10.3) mg/dL Magnesium 1.3 L (1.7-2.8) mg/dL Total Bilirubin 0.6 (0.2-1.0) mg/dL AST 27 (10-42) IU/L ALT 31 (10-60) IU/L Alkaline Phosphatase 67 (42-121) IU/L Total Protein 6.8 (6.7-8.2) g/dL Albumin 3.7 (3.2-5.5) g/dL Globulin 3.1 (2.1-4.2) g/dL Albumin/Globulin Ratio 1.2 (1.0-2.2) - Current Medications Current Medications: Current Medications Generic Name Dose Route Start Last Admin Trade Name Freq PRN Reason Stop Dose Admin Albuterol 2.5 mg 03/17/17 22:00 03/18/17 07:43 INH 2.5 mg RTTID [facility] Administration Bupropion HCl 150 mg 03/17/17 21:00 03/17/17 21:20 Wellbutrin Sr PO Not Given BID [facility] Clonidine HCl 0.1 mg 03/17/17 13:03 03/17/17 14:04 Catapres PO 0.1 mg Q8H PRN Administration Hypertensive Emergency Enalaprilat 1.25 mg 03/17/17 15:07 03/17/17 15:32 Vasotec Inj IVP 1.25 mg Q6HR PRN Administration Hypertensive Emergency Lactated Ringer's 1,000 mls @ 150 mls/hr 03/17/17 12:00 03/18/17 03:26 Lr IV 150 mls/hr .Q6H40M [facility] Administration Acetaminophen 100 mls @ 400 mls/hr 03/17/17 12:00 03/18/17 05:41 Ofirmev IV 400 mls/hr Q6H [facility] Administration Lorazepam 2 mg 03/17/17 11:15 03/17/17 12:55 Ativan Inj IVP 0.5 mg Q3HR PRN Administration Anxiety Morphine Sulfate 2 mg 03/17/17 14:26 03/17/17 14:47 Morphine IVP 2 mg Q30M PRN Administration PRIN Morphine Sulfate/Sodium Chloride 0 mg 03/17/17 11:32 03/17/17 14:00 Morphine Concrete Block Layer (Use Concrete Block Layer Order Set) IV 50 mg SOD CUTTER PRN Administration PAIN Protocol Ondansetron HCl 4 mg 03/17/17 11:15 03/17/17 14:15 Zofran Inj IVP 4 mg Q6H PRN Administration Nausea / Vomiting Potassium Chloride 20 meq 03/17/17 17:00 03/17/17 17:41 K-Dur PO 20 meq DAILYWM [facility] Administration - Physical Exam Wound/Incisions: positive: Dressing dry and intact General Appearance: positive: No acute distress, Alert (Pain helped with SOD CUTTER) Respiratory: positive: Wheezes, Rales Cardiovascular: positive: Regular rate & rhythm, No murmur Abdomen: positive: Non-tender, No distention. negative: Nml bowel sounds Back: negative: CVA tenderness (R), CVA tenderness (L) Skin: positive: Color nml, No rash, Warm, Dry Neurologic/Psychiatric: positive: Oriented x3 Impression/Plan - Problem List Problem List: POD #1 wound pain stable handeled with SOD CUTTER Asthma. Pt receiving Med nebs, incentive spectrometry. Resptory engaged WBC normalizing
[2017-03-18] MEDS: buPROPion SR 150 MG TABLET PO SCH ×2 (10:42→21:13)
[2017-03-18] MEDS: POTASSIUM CHLORIDE 20 MEQ TABLET PO SCH (10:46)
[2017-03-18] MEDS: NICOTINE 14 MG PATCH TOP SCH (10:46)
[2017-03-18] MEDS: MORPHINE PCA 50 MG IV PRN (11:06)
[2017-03-18] MEDS: MORPHINE 2 MG/ML SYRINGE IVP PRN (16:20)
[2017-03-19] MEDS ORDERED: LACTATED RINGERS 1,000 ML IV SCH (00:18)
[2017-03-19] MEDS: KETOROLAC 30 MG/ML VIAL IVP PRN ×2 (00:35→06:42)
[2017-03-19 06:08] LABS: BASOPHILS % (AUTO) 0.3 %; EOSINOPHILS % (AUTO) 0.2 %; HCT - HEMATOCRIT 24.6 % (37.0-47.0); HGB - HEMOGLOBIN 8.3 g/dL (12.0-16.0); LYMPHOCYTES # (AUTO) 3.3 10^3/uL (1.5-3.5); LYMPHOCYTES % (AUTO) 27.6 %; MEAN CORPUSCULAR HEMOGLOBIN 30.1 pg (27.0-31.0); MEAN CORPUSCULAR HGB CONC 33.7 g/dL (32.0-36.0); MEAN CORPUSCULAR VOLUME 89.4 fL (81.0-99.0); MEAN PLATELET VOLUME 8.9 fL (7.9-10.8); MONOCYTES # (AUTO) 0.8 10^3/uL (0.0-1.0); NEUTROPHILS # (AUTO) 7.7 10^3/uL (1.5-6.6); NEUTROPHILS % (AUTO) 64.9 %; RED BLOOD COUNT 2.75 10^6/uL (4.20-5.40); RED CELL DISTRIBUTION WIDTH 13.3 % (12.0-15.0); UNCORRECTED WHITE BLOOD COUNT 11.9 x10^3/uL; WHITE BLOOD COUNT 11.9 x10^3/uL (4.8-10.8)
[2017-03-19] MEDS: ACETAMINOPHEN 1,000 MG/100 ML 100 ML IV SCH ×4 (06:19→23:51)
[2017-03-19 06:20] LABS: ALBUMIN/GLOBULIN RATIO 1.1 (1.0-2.2); BILIRUBIN,TOTAL 0.6 mg/dL (0.2-1.0); CALCIUM 8.1 mg/dL (8.5-10.3); CREATININE 0.4 mg/dL (0.4-1.0); POTASSIUM 3.4 mmol/L (3.5-5.0); TOTAL PROTEIN 5.8 g/dL (6.7-8.2)
[2017-03-19] MEDS: ALBUTEROL NEB 2.5 MG/3 ML INH SCH ×3 (07:51→19:45)
[2017-03-19] MEDS ORDERED: IBUPROFEN 800 MG TABLET PO PRN (07:55)
--- NOTE | 2017-03-19 07:59 | PROVIDER PROGRESS NOTE ---
Subjective - General Admit Date: 03/17/17 Procedure Date: 03/17/17 Post Op Days: 2 Procedure Performed: TG with BS and left oopherectomy cysto - Review of Systems Wound/Incisions: positive: Dressing dry and intact General: positive: No symptoms (Pain 5/10. Changing to orals. Passing flatus) Pulmonary: positive: Cough, Wheezing Cardiovascular: positive: No symptoms, Chest pain Gastrointestinal: positive: Flatus Skin: positive: No symptoms, Cyanosis Objective - Patient Data Reviewed Vital Signs: Yes Vital Signs: Vital Signs x48h Temp Pulse Resp BP Pulse Ox 03/19/17 06:34 16 03/19/17 03:00 37.4 C 89 17 150/88 H 95 03/19/17 02:00 18 Weight: Weight 03/17/17 03/18/17 03/19/17 23:59 23:59 23:59 Weight (kg) 100.5 kg Intake & Output: Intake and Output Totals x24h 03/17/17 03/18/17 03/19/17 23:59 23:59 23:59 Intake Total 4328 2877 1021 Output Total 2880 2375 2300 Balance 1448 502 1279 - Lab Results Lab Results: 03/19/17 05:44 03/19/17 05:44 Other Lab Results: Lab Results x24hrs 03/19/17 03/19/17 Range/Units 05:44 05:44 WBC 11.9 H (4.8-10.8) x10^3/uL RBC 2.75 L (4.20-5.40) 10^6/uL Hgb 8.3 L (12.0-16.0) g/dL Hct 24.6 L (37.0-47.0) % MCV 89.4 (81.0-99.0) fL MCH 30.1 (27.0-31.0) pg MCHC 33.7 (32.0-36.0) g/dL RDW 13.3 (12.0-15.0) % Plt Count 216 (130-450) 10^3/uL MPV 8.9 (7.9-10.8) fL Neut # 7.7 H (1.5-6.6) 10^3/uL Lymph # 3.3 (1.5-3.5) 10^3/uL [place] # 0.8 (0.0-1.0) 10^3/uL Eos # 0.0 (0.0-0.7) 10^3/uL Baso # 0.0 (0.0-0.1) 10^3/uL Absolute Nucleated RBC 0.00 x10^3/uL Nucleated RBCs 0.0 /100WBC Sodium 139 (135-145) mmol/L Potassium 3.4 L (3.5-5.0) mmol/L Chloride 105 (101-111) mmol/L Carbon Dioxide 28 (21-32) mmol/L Anion Gap 6.0 (6-13) BUN 8 (6-20) mg/dL Creatinine 0.4 (0.4-1.0) mg/dL Estimated GFR (MDRD) 175 (>89) Glucose 118 H (70-100) mg/dL Calcium 8.1 L (8.5-10.3) mg/dL Total Bilirubin 0.6 (0.2-1.0) mg/dL AST 17 (10-42) IU/L ALT 20 (10-60) IU/L Alkaline Phosphatase 44 (42-121) IU/L Total Protein 5.8 L (6.7-8.2) g/dL Albumin 3.1 L (3.2-5.5) g/dL Globulin 2.7 (2.1-4.2) g/dL Albumin/Globulin Ratio 1.1 (1.0-2.2) - Current Medications Current Medications: Current Medications Generic Name Dose Route Start Last Admin Trade Name Freq PRN Reason Stop Dose Admin Albuterol 2.5 mg 03/17/17 22:00 03/19/17 07:51 INH 2.5 mg RTTID [facility] Administration Bupropion HCl 150 mg 03/17/17 21:00 03/18/17 21:13 Wellbutrin Sr PO Not Given BID [facility] Clonidine HCl 0.1 mg 03/17/17 13:03 03/17/17 14:04 Catapres PO 0.1 mg Q8H PRN Administration Hypertensive Emergency Enalaprilat 1.25 mg 03/17/17 15:07 03/17/17 15:32 Vasotec Inj IVP 1.25 mg Q6HR PRN Administration Hypertensive Emergency Acetaminophen 100 mls @ 400 mls/hr 03/17/17 12:00 03/19/17 06:19 Ofirmev IV 400 mls/hr Q6H [facility] Administration Lorazepam 2 mg 03/17/17 11:15 03/17/17 12:55 Ativan Inj IVP 0.5 mg Q3HR PRN Administration Anxiety Nicotine 1 patch 03/18/17 09:00 03/18/17 10:46 Nicoderm TOP 1 patch DAILY [facility] Administration Ondansetron HCl 4 mg 03/17/17 11:15 03/17/17 14:15 Zofran Inj IVP 4 mg Q6H PRN Administration Nausea / Vomiting Potassium Chloride 20 meq 03/17/17 17:00 03/18/17 10:46 K-Dur PO 20 meq DAILYWM [facility] Administration - Physical Exam Wound/Incisions: positive: Dressing dry and intact General Appearance: positive: No acute distress, Alert Respiratory: positive: Wheezes (throuout) Cardiovascular: positive: Regular rate & rhythm, No murmur Abdomen: positive: Tenderness. negative: Rebound Back: negative: CVA tenderness (R), CVA tenderness (L) Skin: positive: Color nml, No rash Extremities: negative: Calf tenderness, Concha's sign/cords Neurologic/Psychiatric: positive: Oriented x3 Impression/Plan - Problem List Problem List: POD #2 bowel function returning CBC normalizing WBC H/H still falling Advance diet ADA Change to oral pain medication
[2017-03-19] MEDS: POTASSIUM CHLORIDE 20 MEQ TABLET PO SCH (08:30)
[2017-03-19] MEDS: buPROPion SR 150 MG TABLET PO SCH ×2 (08:30→20:33)
[2017-03-19] MEDS: SIMETHICONE CHEW 80 MG TABLET PO SCH ×4 (08:30→21:23)
[2017-03-19] MEDS: NICOTINE 14 MG PATCH TOP SCH (08:30)
[2017-03-19] MEDS: oxyCODONE 5 MG TABLET PO PRN ×3 (08:30→16:06)
[2017-03-19] MEDS ORDERED: SODIUM CHLORIDE FLUSH 0.9% 10 ML SYRINGE IVP ONE ×2 (12:16→23:49)
--- NOTE | 2017-03-19 15:49 | PROVIDER PROGRESS NOTE ---
Assessment/Plan - Problem List (1) HTN (hypertension) Qualifiers: Hypertension type: essential hypertension Qualified Code(s): I10 - Essential (primary) hypertension Assessment/Plan: PT with HTN during Surgery. HTN is being controlled with PRN medications Few episodes of lower Blood pressures Recommendations Continue monitoring and covering with PRN therapy Consider adding Lisinopril or amlodipine if persists Will monitor with routine VS (2) Hypokalemia Assessment/Plan: Low K on admission. Replacing with low dose KCL MAg is alos low Recommendations Recheck mag level and replace if indicated Replace K with oral supplementation Recheck labs in AM (3) Hypomagnesemia Assessment/Plan: Mag 1.3 on admission. Does not appear to have been replaced. Recommendations Recheck and replace as needed (4) Anemia Qualifiers: Anemia type: other cause Assessment/Plan: Related with blood loss post operatively Recommendations Management per surgery - Current Meds Current Meds: Current Medications Generic Name Dose Route Start Last Admin Trade Name Freq PRN Reason Stop Dose Admin Albuterol 2.5 mg 03/17/17 22:00 03/19/17 15:09 INH 2.5 mg RTTID BRYANT Administration Bupropion HCl 150 mg 03/17/17 21:00 03/19/17 08:30 Wellbutrin Sr PO 150 mg BID BRYANT Administration Clonidine HCl 0.1 mg 03/17/17 13:03 03/17/17 14:04 Catapres PO 0.1 mg Q8H PRN Administration Hypertensive Emergency Enalaprilat 1.25 mg 03/17/17 15:07 03/17/17 15:32 Vasotec Inj IVP 1.25 mg Q6HR PRN Administration Hypertensive Emergency Acetaminophen 100 mls @ 400 mls/hr 03/17/17 12:00 03/19/17 12:09 Ofirmev IV 400 mls/hr Q6H BRYANT Administration Ibuprofen 800 mg 03/19/17 07:55 03/19/17 08:30 Motrin PO 800 mg BID PRN Administration PAIN Lorazepam 2 mg 03/17/17 11:15 03/17/17 12:55 Ativan Inj IVP 0.5 mg Q3HR PRN Administration Anxiety Nicotine 1 patch 03/18/17 09:00 03/19/17 08:30 Nicoderm TOP Not Given DAILY BRYANT Ondansetron HCl 4 mg 03/17/17 11:15 03/17/17 14:15 Zofran Inj IVP 4 mg Q6H PRN Administration Nausea / Vomiting Oxycodone HCl 5 mg 03/19/17 07:56 03/19/17 12:33 Roxicodone PO 5 mg Q4HR PRN Administration PAIN Potassium Chloride 20 meq 03/17/17 17:00 03/19/17 08:30 K-Dur PO 20 meq DAILYWM BRYANT Administration Ranitidine HCl 150 mg 03/19/17 09:00 03/19/17 08:30 Zantac PO 150 mg DAILY BRYANT Administration Simethicone 80 mg 03/19/17 09:00 03/19/17 13:49 Mylicon PO 80 mg 0900,1300,1800,2100 BRYANT Administration - Lab Result Fish Bone Diagrams: 03/19/17 05:44 03/19/17 05:44 - Diagnostic Imaging Results Diagnostic Imaging Results: Prelim report reviewed - Additional Planning Condition/Complexity: Stable My Orders: My Active Orders 03/19/17 15:46 MAGNESIUM [CHEM] Routine Consult/Specialty: Hospitalist Plan Discussed with:: Patient Time Spent: 15-30 minutes Subjective - Subjective Patient Reports: Feeling Better, Abdominal Pain (from surgery), Dizzines (Wiht position changes) Nursing Reports: No Complaints Objective Vital Signs: Vital Signs - 24 hr 03/18/17 03/18/17 03/18/17 15:59 18:00 18:03 Temperature 36.1 C L Heart Rate 92 Heart Rate [ 97 Radial] Respiratory 20 18 20 Rate Blood Pressure [Brachial artery] Blood Pressure 148/77 H [Left Radial artery] O2 Saturation 90 L 03/18/17 03/18/17 03/18/17 19:38 21:14 23:51 Temperature 37.2 C 37.4 C Heart Rate Heart Rate [ 99 102 H Radial] Respiratory 18 20 18 Rate Blood Pressure 145/76 H [Brachial artery] Blood Pressure 139/72 H [Left Radial artery] O2 Saturation 96 94 03/19/17 03/19/17 03/19/17 02:00 03:00 06:34 Temperature 37.4 C Heart Rate Heart Rate [ 89 Radial] Respiratory 18 17 16 Rate Blood Pressure 150/88 H [Brachial artery] Blood Pressure [Left Radial artery] O2 Saturation 95 03/19/17 03/19/17 03/19/17 07:55 08:15 11:49 Temperature 37.3 C 36.9 C Heart Rate 94 Heart Rate [ 92 104 H Radial] Respiratory 18 20 20 Rate Blood Pressure 143/83 H 129/74 [Brachial artery] Blood Pressure [Left Radial artery] O2 Saturation 97 97 03/19/17 15:10 Temperature Heart Rate 92 Heart Rate [ Radial] Respiratory 20 Rate Blood Pressure [Brachial artery] Blood Pressure [Left Radial artery] O2 Saturation Oxygen O2 Source Room air I&O (Last 24 Hrs): Intake and Output Totals x24h 03/17/17 03/18/17 03/19/17 23:59 23:59 23:59 Intake Total 4328 2877 1421 Output Total 2880 1415 3100 Balance 1442 269 -1249 General: Alert, Oriented x3 HEENT: Atraumatic, PERRLA, EOMI Neck: Supple, No JVD Neuro: Alert, CN 2-12 Grossly Intact Cardiovascular: Regular rate, No murmurs Respiratory: No respiratory distress, Breath sounds nml Abdomen: Normal bowel sounds, Other (tenderness to palpation) Extremities: No clubbing, No edema - Results Results: Laboratory Results WBC 11.9 x10^3/uL (4.8-10.8) H 03/19/17 05:44 RBC 2.75 10^6/uL (4.20-5.40) L 03/19/17 05:44 Hgb 8.3 g/dL (12.0-16.0) L 03/19/17 05:44 Hct 24.6 % (37.0-47.0) L 03/19/17 05:44 MCV 89.4 fL (81.0-99.0) 03/19/17 05:44 MCH 30.1 pg (27.0-31.0) 03/19/17 05:44 MCHC 33.7 g/dL (32.0-36.0) 03/19/17 05:44 RDW 13.3 % (12.0-15.0) 03/19/17 05:44 Plt Count 216 10^3/uL (130-450) 03/19/17 05:44 MPV 8.9 fL (7.9-10.8) 03/19/17 05:44 Neut # 7.7 10^3/uL (1.5-6.6) H 03/19/17 05:44 Lymph # 3.3 10^3/uL (1.5-3.5) 03/19/17 05:44 [place] # 0.8 10^3/uL (0.0-1.0) 03/19/17 05:44 Eos # 0.0 10^3/uL (0.0-0.7) 03/19/17 05:44 Baso # 0.0 10^3/uL (0.0-0.1) 03/19/17 05:44 Absolute Nucleated RBC 0.00 x10^3/uL 03/19/17 05:44 Nucleated RBCs 0.0 /100WBC 03/19/17 05:44 Manual Slide Review Indicated 03/17/17 15:39 Platelet Estimate NORMAL (130-450,000) (NORMAL) 03/17/17 15:39 Platelet Morphology NORMAL APPEARANCE (NORMAL) 03/17/17 15:39 RBC Morph Micro Appear NORMAL APPEARANCE (NORMAL) 03/17/17 15:39 Sodium 139 mmol/L (135-145) 03/19/17 05:44 Potassium 3.4 mmol/L (3.5-5.0) L 03/19/17 05:44 Chloride 105 mmol/L (101-111) 03/19/17 05:44 Carbon Dioxide 28 mmol/L (21-32) 03/19/17 05:44 Anion Gap 6.0 (6-13) 03/19/17 05:44 BUN 8 mg/dL (6-20) 03/19/17 05:44 Creatinine 0.4 mg/dL (0.4-1.0) 03/19/17 05:44 Estimated GFR (MDRD) 175 (>89) 03/19/17 05:44 Glucose 118 mg/dL (70-100) H 03/19/17 05:44 Glycated Hemoglobin 5.4 % (4.6-6.2) 03/18/17 05:28 Estim Average Glucose 108 (70-100) H 03/18/17 05:28 Calcium 8.1 mg/dL (8.5-10.3) L 03/19/17 05:44 Magnesium 1.3 mg/dL (1.7-2.8) L 03/17/17 15:39 Total Bilirubin 0.6 mg/dL (0.2-1.0) 03/19/17 05:44 AST 17 IU/L (10-42) 03/19/17 05:44 ALT 20 IU/L (10-60) 03/19/17 05:44 Alkaline Phosphatase 44 IU/L (42-121) 03/19/17 05:44 Total Protein 5.8 g/dL (6.7-8.2) L 03/19/17 05:44 Albumin 3.1 g/dL (3.2-5.5) L 03/19/17 05:44 Globulin 2.7 g/dL (2.1-4.2) 03/19/17 05:44 Albumin/Globulin Ratio 1.1 (1.0-2.2) 03/19/17 05:44 Ur Specific [place] 1.010 (1.002-1.030) 03/17/17 06:30 Urine HCG, Qual NEGATIVE 03/17/17 06:30 - Procedures Procedures: Procedures APPLICATION OF SPLINT (01/13/13) CARPAL TUNNEL RELEASE (04/06/13) EXTRACTION OF ENDOMETRIUM, ENDO (02/16/17) RELEASE GREATER OMENTUM, PERCUTANEOUS ENDOSCOPIC APPROACH (02/16/17)
[2017-03-19] MEDS ORDERED: KETOROLAC 30 MG/ML VIAL IVP PRN ×2 (18:48→20:48)
[2017-03-19] MEDS ORDERED: fentaNYL 100 MCG/2 ML VIAL IVP SCH ×2 (19:00→20:02)
[2017-03-19] MEDS ORDERED: POLYETHYLENE GLYCOL 3350 17 GM PACKET PO PRN (20:21)
[2017-03-19] MEDS ORDERED: MAGNESIUM HYDROXIDE 2,400 MG/30 ML UDC PO PRN (20:22)
--- NOTE | 2017-03-19 20:32 | PROVIDER PROGRESS NOTE ---
Subjective - Prog Note Date Prog Note Date: 03/19/17 Prog Note Time: 20:15 - Subjective Pt reports feeling: Worse (Pt comp;ains of increased LLQ pain 7/10 despite 1st dose of Fentanyl 25mcg. 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 Motrin held and Tordol 30mg mg IVP q 8 started.) Objective - Vital Signs/Intake & Output Vital Signs: Vital Signs x48h Temp Pulse Pulse Resp BP Pulse Ox 03/19/17 16:10 208.2 F H 84 18 123/76 97 03/19/17 15:10 92 20 Intake & Output: Intake & Output 03/16/17 03/17/17 03/18/17 03/19/17 23:59 23:59 23:59 23:59 Intake Total 4328 2877 1901 Output Total 2880 2375 3100 Balance 1448 502 -1199 - Lab Results Fish Bones: 03/19/17 05:44 03/19/17 05:44 Other Labs: Lab Results x24hrs 03/19/17 03/19/17 03/19/17 Range/Units 05:44 05:44 05:44 WBC 11.9 H (4.8-10.8) x10^3/uL RBC 2.75 L (4.20-5.40) 10^6/uL Hgb 8.3 L (12.0-16.0) g/dL Hct 24.6 L (37.0-47.0) % MCV 89.4 (81.0-99.0) fL MCH 30.1 (27.0-31.0) pg MCHC 33.7 (32.0-36.0) g/dL RDW 13.3 (12.0-15.0) % Plt Count 216 (130-450) 10^3/uL MPV 8.9 (7.9-10.8) fL Neut # 7.7 H (1.5-6.6) 10^3/uL Lymph # 3.3 (1.5-3.5) 10^3/uL [place] # 0.8 (0.0-1.0) 10^3/uL Eos # 0.0 (0.0-0.7) 10^3/uL Baso # 0.0 (0.0-0.1) 10^3/uL Absolute Nucleated RBC 0.00 x10^3/uL Nucleated RBCs 0.0 /100WBC Sodium 139 (135-145) mmol/L Potassium 3.4 L (3.5-5.0) mmol/L Chloride 105 (101-111) mmol/L Carbon Dioxide 28 (21-32) mmol/L Anion Gap 6.0 (6-13) BUN 8 (6-20) mg/dL Creatinine 0.4 (0.4-1.0) mg/dL Estimated GFR (MDRD) 175 (>89) Glucose 118 H (70-100) mg/dL Calcium 8.1 L (8.5-10.3) mg/dL Magnesium 1.7 (1.7-2.8) mg/dL Total Bilirubin 0.6 (0.2-1.0) mg/dL AST 17 (10-42) IU/L ALT 20 (10-60) IU/L Alkaline Phosphatase 44 (42-121) IU/L Total Protein 5.8 L (6.7-8.2) g/dL Albumin 3.1 L (3.2-5.5) g/dL Globulin 2.7 (2.1-4.2) g/dL Albumin/Globulin Ratio 1.1 (1.0-2.2) Physical Exam - Physical Exam General: positive: No acute distress, Anxious, Alert HEENT: positive: EOMI, Moist mucous membranes Neck: positive: Supple w/out meningeal sx Cardiac: positive: Regular Rate, Regular Rhythm Resipratory: positive: Clear to ausultation jovita, Other (Distant) Abdomen: positive: Distended (mild distension), Tender to palpation ( Appropriate for laparotomy; Not alarming or concerning) Skin: positive: Warm and dry Neurologic: positive: Alert and Oriented X 3, Normal Sensation, Normal Speech Assessment/Plan - Assessment/Plan Assessment: Post FAMILY [employer]AK[employer] weening pt reports pain. Small amount of IVP Fentanyl should bridge her until Toradol is effective. Plan: 1. Begin Toradol tonight to provide relief and allow sleep 2. Ween tordol and restart ibuprophen on Wednesday 3. Stool Stimulant Tonight
[2017-03-19 23:59] VITALS: BP 144/80
[2017-03-20] MEDS ORDERED: SODIUM CHLORIDE FLUSH 0.9% 10 ML SYRINGE IVP ONE ×3 (00:24→06:46)
[2017-03-20 05:37] LABS: BASOPHILS % (AUTO) 0.3 %; EOSINOPHILS # (AUTO) 0.1 10^3/uL (0.0-0.7); EOSINOPHILS % (AUTO) 1.5 %; HCT - HEMATOCRIT 26.6 % (37.0-47.0); HGB - HEMOGLOBIN 8.9 g/dL (12.0-16.0); LYMPHOCYTES % (AUTO) 34.3 %; MEAN CORPUSCULAR HEMOGLOBIN 29.9 pg (27.0-31.0); MEAN CORPUSCULAR HGB CONC 33.5 g/dL (32.0-36.0); MEAN CORPUSCULAR VOLUME 89.2 fL (81.0-99.0); MEAN PLATELET VOLUME 8.8 fL (7.9-10.8); MONOCYTES # (AUTO) 0.6 10^3/uL (0.0-1.0); MONOCYTES % (AUTO) 6.9 %; RED BLOOD COUNT 2.98 10^6/uL (4.20-5.40); RED CELL DISTRIBUTION WIDTH 13.6 % (12.0-15.0); UNCORRECTED WHITE BLOOD COUNT 8.8 x10^3/uL; WHITE BLOOD COUNT 8.8 x10^3/uL (4.8-10.8)
[2017-03-20 05:45] LABS: ALBUMIN/GLOBULIN RATIO 1.1 (1.0-2.2); BILIRUBIN,TOTAL 0.5 mg/dL (0.2-1.0); CALCIUM 8.5 mg/dL (8.5-10.3); CREATININE 0.4 mg/dL (0.4-1.0); POTASSIUM 3.7 mmol/L (3.5-5.0); TOTAL PROTEIN 6.5 g/dL (6.7-8.2)
[2017-03-20] MEDS: ACETAMINOPHEN 1,000 MG/100 ML 100 ML IV SCH (06:47)
[2017-03-20] MEDS: NICOTINE 14 MG PATCH TOP SCH (08:13)
[2017-03-20] MEDS: buPROPion SR 150 MG TABLET PO SCH (08:13)
[2017-03-20] MEDS: SIMETHICONE CHEW 80 MG TABLET PO SCH (08:13)
[2017-03-20] MEDS: oxyCODONE 5 MG TABLET PO PRN (08:13)
[2017-03-20] MEDS: POTASSIUM CHLORIDE 20 MEQ TABLET PO SCH (08:15)
--- NOTE | 2017-03-20 09:21 | Discharge Plan ---
Discharge Plan Disposition: Home, Self Care Condition: Good Prescriptions: oxyCODONE [Roxicodone] 5 mg PO Q4HR PRN #20 tablet PRN Reason: Pain Alprazolam [Xanax] 0.25 mg PO Q4HR PRN #12 tablet PRN Reason: Anxiety Nicotine 14 mg Patch [Nicoderm] 1 patch TOP DAILY #14 patch Diet: Regular Shower Restrictions: No Driving Restrictions: Yes (No Driving w Oycodone) No Smoking: If you smoke, Please STOP! Call for help. Follow-up with: Chidi Gómez MD [Primary Care Provider] - Simeon Daniel MD [Provider Admit Priv/Credential] - 1 Week
[2017-03-20] MEDS: ALBUTEROL NEB 2.5 MG/3 ML INH SCH (09:30)
--- NOTE | 2017-03-23 11:58 | DISCHARGE SUMMARY ---
DATE OF ADMISSION: 03/17/2017 DATE OF DISCHARGE: 03/20/2017 DIAGNOSES 1. Menorrhagia. 2. Intramural leiomyoma, final pathology pending. 3. Asthma. 4. Hypertension. 5. Morbid obesity, BMI 41. HISTORY OF PRESENT ILLNESS: The patient is a 41-year-old 4, para 4 woman, who repor aiden heavy and prolonged menstrual bleeding and underwent a laparoscopy due to ultrasound findings sug gestive of an ovarian mass. Laparoscopy discovered a uterine leiomyoma, and she was then planned for a total abdominal hysterectomy. Reference Dr. Daniel's admission H and P. HOSPITAL COURSE: The patient was admitted and prepared for laparotomy. She underwent an uneventful to jing abdominal hysterectomy with bilateral salpingectomy and left oophorectomy and postoperative cysto scopy. Procedure was without complication and done with general anesthesia and ET tube. Total blood l oss was 300. Reference Dr. Daniel's operative note. During surgery, patient's blood pressure was labile , and she had periods of hypertension. Patient remained stable in the recovery room, and due to the hypertensive episode, consultation was milagro rajput with Dr. Sarabia. Patient was begun on DVT precautions, albuterol, and a combination of clonidine and Vasotec postoperatively. She was maintained on telemonitoring. Pain relief was maintained with PC A and Toradol. Initial hemoglobin was 12.8, and postoperatively it dropped to 9.9 and stabilized at o r about 9. Her white count was elevated at 17.8. Blood glucose was initially elevated at 233 and murphy ined above 100 throughout the hospitalization. On postoperative day #2, SEWER SEPARATION DESIGNER and Toradol were discontinued. Patient initially did well but in the lat e afternoon and evening had significant left-sided pain. She was evaluated. Fentanyl 25 mcg x2 and re institution of Toradol was begun to provide a bridge, to lengthen the bridge to oral analgesia. Vital signs were stable throughout. By postoperative day #3, patient was doing well. She was showering and taking solid nutrition. She roman d a bowel movement. Fentanyl and Toradol were removed, and ibuprofen and oxycodone substituted. She m aintained good function and activity and desired discharge. DISCHARGE MEDICATIONS 1. Albuterol as previously prescribed. 2. Wellbutrin 150 mg slow release b.i.d. 3. Oxycodone 5 mg p.o. q.4 hours p.r.n. pain. 4. Ibuprofen 800 mg q.8 hours p.r.n. 5. Xanax 0.125 q.4 hours p.r.n. anxiety. Prior to discharge, complete warning sign and callback instructions were reviewed. Wound VAC was oper able, and she is to return to the clinic by next Wednesday for removal and wound inspection. Final pa thology should be available at that time. PROCEDURES: Total abdominal hysterectomy with bilateral salpingectomy and left oophorectomy; postoper ative cystoscopy. COMPLICATIONS: Labile blood pressure during surgery. CONSULTANTS: Internal medicine hospitalist service, Dr. Sarabia. JOB #: [id number] EXT JOB #:[id number]
== END 2017-03-20 10:32 | disposition home or self-care (01) | DRG 742 ==
LOC: MS2 06:09 → MS3 11:26
PROVIDERS: ADMIT Obstetrics & Gynecology; ATTEND Obstetrics & Gynecology
PROC: 0UTC0ZZ Resection of Cervix, Open Approach (ICD-10-PCS; 2017-03-17)
PROC: 0UT70ZZ Resection of Bilateral Fallopian Tubes, Open Approach (ICD-10-PCS; 2017-03-17)
PROC: 0UT10ZZ Resection of Left Ovary, Open Approach (ICD-10-PCS; 2017-03-17)
PROC: 0TJB8ZZ Inspection of Bladder, Via Natural or Artificial Opening Endoscopic (ICD-10-PCS; 2017-03-17)
PROC: 0UT90ZZ Resection of Uterus, Open Approach (ICD-10-PCS; principal; 2017-03-17 07:30)
DX: N92.0 Excessive and frequent menstruation with regular cycle (principal); Z68.41 Body mass index [BMI] 40.0-44.9, adult; D25.1 Intramural leiomyoma of uterus; D50.0 Iron deficiency anemia secondary to blood loss (chronic); E83.42 Hypomagnesemia; E87.6 Hypokalemia; R33.9 Retention of urine, unspecified; J45.909 Unspecified asthma, uncomplicated; I10 Essential (primary) hypertension; E66.01 Morbid (severe) obesity due to excess calories; F17.200 Nicotine dependence, unspecified, uncomplicated
CPT/HCPCS: 36415; 74020; 80053; 81025; 83036; 83735; 85025; 88305; 88307; 94640

== ENCOUNTER 2017-03-21 20:40 | Inpatient (IN) | payer BC ==
[2017-03-21] MEDS ORDERED: SODIUM CHLORIDE 0.9% 1,000 ML IV ONE (21:45)
[2017-03-21] MEDS ORDERED: ONDANSETRON 4 MG/2 ML VIAL IVP STA (21:45)
[2017-03-21] MEDS ORDERED: MORPHINE 10 MG/ML VIAL IVP STA (21:45)
--- NOTE | 2017-03-21 21:45 | ED Physician Documentation ---
PD HPI ABD PAIN - Stated complaint Stated Complaint: PO SURGERY PX - Chief complaint Chief Complaint: Abd Pain - History obtained from History obtained from: Patient, Family - History of Present Illness Timing - onset: Yesterday Timing - details: Gradual onset, Still present Quality: Cramping, Aching Location: RLQ, LLQ Worsened by: Moving, Breathing, Position, Palpation Associated symptoms: Nausea. No: Vomiting, Hematemesis, Diarrhea, Constipation Similar symptoms before: Work up / diagnostics, Treatment, Follow up Recently seen: Surgery - Additional information Additional information: Patient is a 41 year old female presenting to the emergency department for abdominal pain. patient had an open hysterectomy done about 4 days prior. Patient was discharged home yesterday in stable condition. patient stated that she was not sure if she could take her pain medication with case medication and her laxatives. patient stated that he pain was getting progressively worse so she came in for evaluation. Review of Systems Constitutional: denies: Fever, Chills Eyes: denies: Decreased vision, Photophobia Ears: denies: Ear pain, Drainage/discharge Nose: denies: Epistaxis Throat: denies: Sore throat Cardiac: denies: Chest pain / pressure Respiratory: denies: Cough, Wheezing GI: reports: Abdominal Pain, Nausea, Constipation. denies: Vomiting, Diarrhea : reports: Dysuria, Hematuria Musculoskeletal: reports: Back pain. 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 - Present Medications Home Medications: Ambulatory Orders Medication Instructions Recorded Confirmed Albuterol Sulfate [Proair Hfa 8.5 gm IH TID 04/06/13 03/15/17 Inhaler] Ibuprofen [Motrin] 800 mg PO Q8H PRN 03/15/17 03/15/17 Bupropion HCl [Bupropion HCl Sr] 150 mg PO BID 03/17/17 03/17/17 Albuterol 2.5 mg INH RTTID neb 03/20/17 Alprazolam [Xanax] 0.25 mg PO Q4HR PRN #12 tablet 03/20/17 Nicotine 14 mg Patch [Nicoderm] 1 patch TOP DAILY #14 patch 03/20/17 oxyCODONE [Roxicodone] 5 mg PO Q4HR PRN #20 tablet 03/20/17 - Allergies Allergies/Adverse Reactions: Allergies Allergy/AdvReac Type Severity Reaction Status Date / Time No Known Drug Allergies Allergy Verified 03/15/17 12:34 - Social History Does the pt smoke?: Yes Smoking Status: Current every day smoker Does the pt have substance abuse?: No PD ED PE NORMAL - Vitals Vital signs reviewed: Yes - General General: Alert and oriented X 3 - HEENT HEENT: Atraumatic, PERRL - Cardiac Cardiac: RRR, No murmur - Respiratory Respiratory: No respiratory distress - Derm Derm: Warm and dry, No rash - Extremities Extremities: No deformity, No edema - Neuro Neuro: Alert and oriented X 3, No motor deficit, No sensory deficit, Normal speech - Psych Psych: Normal mood PD ED PE EXPANDED - General General: Alert, In Pain - HEENT HEENT: Dry mucous membranes - Abdomen Abdomen: Tender to palpation, Guarding, Surgical scars (wound vac in central abdomen, no surrounding erythema) Results - Vitals Vitals: Vital Signs - 24 hr 03/21/17 03/21/17 03/22/17 20:55 22:15 00:25 Temperature 37.1 C Heart Rate 120 H Respiratory 18 Rate Blood Pressure 143/100 H 141/93 H 154/88 H O2 Saturation 100 95 96 03/22/17 01:15 Temperature Heart Rate Respiratory Rate Blood Pressure 165/87 H O2 Saturation 97 Oxygen O2 Source Nasal cannula - Labs Labs: Laboratory Tests 03/21/17 03/21/17 03/21/17 22:26 22:26 22:26 WBC 19.6 H RBC 3.44 L Hgb 10.2 L Hct 30.3 L MCV 88.2 MCH 29.8 MCHC 33.7 RDW 13.7 Plt Count 291 MPV 8.1 Neut # 17.6 H Lymph # 0.9 L [place] # 1.1 H Eos # 0.0 Baso # 0.1 Absolute Nucleated RBC 0.00 Nucleated RBCs 0.0 Sodium 130 L Potassium 3.2 L Chloride 98 L Carbon Dioxide 22 Anion Gap 10.0 BUN 13 Creatinine 0.6 Estimated GFR (MDRD) 110 Glucose 161 H Lactic Acid 0.9 Calcium 8.6 Total Bilirubin 1.3 H AST 17 ALT 20 Alkaline Phosphatase 56 Total Protein 6.9 Albumin 3.4 Globulin 3.5 Albumin/Globulin Ratio 1.0 Lipase < 10 L Ur Specific [place] Urine HCG, Qual 03/21/17 23:18 WBC RBC Hgb Hct MCV MCH MCHC RDW Plt Count MPV Neut # Lymph # [place] # Eos # Baso # Absolute Nucleated RBC Nucleated RBCs Sodium Potassium Chloride Carbon Dioxide Anion Gap BUN Creatinine Estimated GFR (MDRD) Glucose Lactic Acid Calcium Total Bilirubin AST ALT Alkaline Phosphatase Total Protein Albumin Globulin Albumin/Globulin Ratio Lipase Ur Specific [place] 1.020 Urine HCG, Qual NEGATIVE - Rads (name of study) ct abdomen and pelvis Radiology: Final report received, See rad report (two intraabdominal abscesses, mild free fluid) PD MEDICAL DECISION MAKING - ED course Complexity details: reviewed old records, reviewed results, re-evaluated patient , considered differential, d/w patient, d/w family, d/w [facility] ad[facility] consultant ED course: Patient was seen and examined at bedside. IV access was gained and labs were drawn. Patient was treated with fluids and morphine for pain. When patient's labs came back she was found to have a white count of 19. Imaging was ordered. Patient stated that her pain was getting worse and was treated with dilaudid 1mg and sent for imaging. When patient returned the results were reviewed. Patient was found to have two large abscesses. Patient was started on zosyn. OB was contacted and the case was discussed with Dr. Daniel who agreed to admission to his service. Departure - Departure Disposition: [facility] DC/Xfer Clinical Impression: Intra-abdominal abscess post-procedure Condition: Stable
[2017-03-21] MEDS ORDERED: ONDANSETRON 4 MG/2 ML VIAL ONE (21:59)
[2017-03-21] MEDS ORDERED: MORPHINE 10 MG/ML VIAL ONE (21:59)
[2017-03-21 22:31] LABS: BASOPHILS # (AUTO) 0.1 10^3/uL (0.0-0.1); BASOPHILS % (AUTO) 0.4 %; HCT - HEMATOCRIT 30.3 % (37.0-47.0); HGB - HEMOGLOBIN 10.2 g/dL (12.0-16.0); LYMPHOCYTES # (AUTO) 0.9 10^3/uL (1.5-3.5); LYMPHOCYTES % (AUTO) 4.4 %; MEAN CORPUSCULAR HEMOGLOBIN 29.8 pg (27.0-31.0); MEAN CORPUSCULAR HGB CONC 33.7 g/dL (32.0-36.0); MEAN CORPUSCULAR VOLUME 88.2 fL (81.0-99.0); MEAN PLATELET VOLUME 8.1 fL (7.9-10.8); MONOCYTES # (AUTO) 1.1 10^3/uL (0.0-1.0); MONOCYTES % (AUTO) 5.4 %; NEUTROPHILS # (AUTO) 17.6 10^3/uL (1.5-6.6); NEUTROPHILS % (AUTO) 89.8 %; RED BLOOD COUNT 3.44 10^6/uL (4.20-5.40); RED CELL DISTRIBUTION WIDTH 13.7 % (12.0-15.0); UNCORRECTED WHITE BLOOD COUNT 19.6 x10^3/uL; WHITE BLOOD COUNT 19.6 x10^3/uL (4.8-10.8)
[2017-03-21 22:52] LABS: BILIRUBIN,TOTAL 1.3 mg/dL (0.2-1.0); BUN - BLOOD UREA NITROGEN 13 mg/dL (6-20); CALCIUM 8.6 mg/dL (8.5-10.3); CARBON DIOXIDE - CO2 22 mmol/L (21-32); CHLORIDE 98 mmol/L (101-111); CREATININE 0.6 mg/dL (0.4-1.0); GFR - MDRD 110 (>89); GLUCOSE 161 mg/dL (70-100); POTASSIUM 3.2 mmol/L (3.5-5.0); SODIUM 130 mmol/L (135-145); TOTAL PROTEIN 6.9 g/dL (6.7-8.2)
[2017-03-21 22:59] LABS: LIPASE < 10 U/L (22-51)
[2017-03-21] MEDS ORDERED: HYDROmorphone 1 MG/ML SYRINGE IVP STA (23:39)
[2017-03-21 23:45] LABS: HCG UR QUAL NEGATIVE
[2017-03-21] MEDS ORDERED: HYDROmorphone 1 MG/ML SYRINGE ONE (23:46)
[2017-03-22] MEDS ORDERED: IOPAMIDOL-300 100 ML VIAL IVP ONE (00:36)
--- NOTE | 2017-03-22 01:03 | CT Preliminary Report ---
Exam: CT Abdomen/Pelvis W/ IMPRESSION: 1. Status post hysterectomy with suspected abscess between the rectum and urinary bladder measuring a bout 5.1 x 4.2 cm. 2. More superiorly in the right lower quadrant there is no abscess collection measuring 8.2 x 4.7 x 8 .0 cm. 3. Mild amount of free fluid. 4. Fatty liver. 5. Urinary bladder wall thickening, probably due to recent surgery and adjacent abscess. RADIA The above critical findings were discussed with Dr. Mckeon by Dr. Chidi Spann at 01:00 hrs on 03/22/17. SITE ID: [id number]
[2017-03-22] MEDS ORDERED: PIPERACILLIN/TAZOBACTAM 4.5 GM in SODIUM CHLORIDE 0.9% MINIBAG 100 ML IV STA (01:05)
--- NOTE | 2017-03-22 01:06 | CT Report ---
EXAM: CT ABDOMEN AND PELVIS EXAM DATE: 03/22/2017 12:19 AM. CLINICAL HISTORY: Hysterectomy two days prior new leukocytosis. Pain and nausea. COMPARISONS: 10/14/2012. TECHNIQUE: Routine helical CT imaging was performed through the abdomen and pelvis. IV contrast: Nell onic. Enteric contrast: No. Reconstructions: Coronal and sagittal. In accordance with CT protocol optimization, one or more of the following dose reduction techniques w ere utilized for this exam: automated exposure control, adjustment of mA and/or KV based on patient s ize, or use of iterative reconstructive technique. FINDINGS: Lung Bases: Bibasilar atelectasis. Liver: Fatty infiltration. Gallbladder/Bile Ducts: Unremarkable. Spleen: Normal. Pancreas: Normal. Adrenal Glands: Normal. Kidneys: Normal. No masses or hydronephrosis. Peritoneal Cavity/Bowel: Small amount of free fluid. Gas and fluid collection in the right lower quad rant measuring 8.2 x 4.7 x 8.0 cm consistent with abscess, for example series 3 image 66. Gas and flu id collection between the bladder and rectum measuring 5.1 x 4.2 cm consistent with abscess, for exam ple series 3 image 83. Colonic diverticula are seen. No definite diverticulitis. Appendix is not well seen. Pelvic Organs: Status post hysterectomy. Urinary bladder is relatively decompressed with mild wall th ickening. Bubble of air in the urinary bladder. Vasculature: No aneurysms or other significant abnormality. Bones: No significant abnormality. Other: None. IMPRESSION: 1. Status post hysterectomy with suspected abscess between the rectum and urinary bladder measuring a bout 5.1 x 4.2 cm. 2. More superiorly in the right lower quadrant there is no abscess collection measuring 8.2 x 4.7 x 8 .0 cm. 3. Mild amount of free fluid. 4. Fatty liver. 5. Urinary bladder wall thickening, probably due to recent surgery and adjacent abscess. RADIA The above critical findings were discussed with Dr. Mckeon by Dr. Chidi Spann at 01:00 hrs on 03/22/17. Referring Provider Line: [phone] SITE ID: [id number]
[2017-03-22] MEDS ORDERED: MORPHINE 2 MG/ML CARPUJECT IVP STA ×2 (01:39→03:37)
[2017-03-22] MEDS ORDERED: MORPHINE 10 MG/ML VIAL ONE (02:06)
[2017-03-22] MEDS ORDERED: ONDANSETRON 4 MG/2 ML VIAL IVP STA (02:08)
[2017-03-22] MEDS ORDERED: ONDANSETRON 4 MG/2 ML VIAL ONE (02:15)
[2017-03-22] MEDS ORDERED: MORPHINE 2 MG/ML CARPUJECT ONE ×2 (02:24→03:42)
[2017-03-22] MEDS ORDERED: LACTATED RINGERS 500 ML IV STA (03:27)
[2017-03-22] MEDS ORDERED: LIDOCAINE-MPF 2% 5 ML VIAL IM ONE (03:30)
[2017-03-22] MEDS ORDERED: METOPROLOL 5 MG/5 ML VIAL IVP ONE (03:30)
[2017-03-22] MEDS ORDERED: GLYCOPYRROLATE 1 MG/5 ML VIAL IVP ONE (03:30)
[2017-03-22] MEDS ORDERED: PROPOFOL 200 MG/20 ML VIAL IVP ONE (03:30)
[2017-03-22] MEDS ORDERED: NEOSTIGMINE 1 MG/1 ML 10 ML MDV IVP ONE (03:30)
[2017-03-22] MEDS ORDERED: ACETAMINOPHEN 1,000 MG/100 ML 100 ML IV ONE (03:30)
[2017-03-22] MEDS ORDERED: SUCCINYLCHOLINE 200 MG/10 ML VIAL IVP ONE (03:30)
[2017-03-22] MEDS ORDERED: MIDAZOLAM 2 MG/2 ML VIAL IVP ONE (03:30)
[2017-03-22] MEDS ORDERED: ONDANSETRON 4 MG/2 ML VIAL IVP ONE (03:30)
[2017-03-22] MEDS ORDERED: ROCURONIUM 50 MG/5 ML VIAL IVP ONE (03:30)
[2017-03-22] MEDS ORDERED: DEXAMETHASONE 4 MG/ML VIAL IVP ONE (03:30)
[2017-03-22] MEDS ORDERED: fentaNYL 250 MCG/5 ML VIAL IVP ONE (03:30)
[2017-03-22] MEDS ORDERED: PHENYLEPHRINE 10 MG/ML VIAL IV ONE (03:30)
[2017-03-22] MEDS ORDERED: metroNIDAZOLE 500 MG/100 ML 100 ML ONE (05:08)
[2017-03-22] MEDS ORDERED: cefTRIAXone 2 GM VIAL ONE (05:08)
[2017-03-22] MEDS ORDERED: BUPIVACAINE 0.5%-EPI 1:200000 PF 30 ML VIAL SUBQ ONE ×2 (05:58)
[2017-03-22] MEDS ORDERED: LACTATED RINGERS 1,000 ML IV ONE ×5 (05:59→07:29)
[2017-03-22 07:21] LABS: ALBUMIN/GLOBULIN RATIO 0.9 (1.0-2.2); BILIRUBIN,TOTAL 1.2 mg/dL (0.2-1.0); CALCIUM 8.1 mg/dL (8.5-10.3); CREATININE 0.6 mg/dL (0.4-1.0); POTASSIUM 3.7 mmol/L (3.5-5.0); TOTAL PROTEIN 6.5 g/dL (6.7-8.2)
[2017-03-22] MEDS ORDERED: ALBUTEROL NEB 2.5 MG/3 ML INH PRN ×2 (07:23→09:29)
[2017-03-22] MEDS ORDERED: ZOLPIDEM 5 MG TABLET PO PRN (07:23)
--- NOTE | 2017-03-22 08:01 | OPERATIVE REPORT ---
Operative Report - General Admit Date: 03/22/17 Procedure Date: 03/22/17 Planned Procedure: Ex Lap Pre-Op Diagnosis: Pelvic Abcess Procedure Performed: Explatory Laproscopy with lysis of adhesions and drainage of two pelvic abcesses with placement of two Steve Vic Drains Post Op Diagnosis: bilateral Pelvic hematomas and pelvic abcess - Procedure Note Primary Surgeon: Simeon Daniel MD Secondary Surgeon: Simeon Berkowitz MD Anesthesia Technique: General ET tube Pathology: Abdominal cultures Estimated Blood Loss (mL): 300 Drain/Tube Type: Steve Levy round drain (Two in both left and right lower pelvis) - Other Other Information/Narrative: Dictated [id number]
[2017-03-22] MEDS: MORPHINE PCA 50 MG IV PRN (08:47)
--- NOTE | 2017-03-22 09:10 | PREOP HISTORY & PHYSICAL ---
DATE OF ADMISSION/SURGERY: 03/22/2017 IDENTIFICATION: The patient is a 41-year-old G4, P4 female. CHIEF COMPLAINT: Abdominal pain. HISTORY OF PRESENT ILLNESS: The patient states at roughly 4 o'clock in the morning of the Mar, she developed abdominal pain which became progressively worse over time. She was seen in the E D roughly at 10 o'clock at which time she had a workup initiated. I was called at roughly 1:45 this m orning. She was complaining of extreme abdominal pain. She states her bowel and bladder function well at this time. She states she has not smoked since surgery. She had undergone a total abdominal hyste rectomy with bilateral salpingectomy and left oophorectomy because of an 8 cm fibroid. Her postop cou rse was significant in that she dropped her hemoglobin to 8.3, but rebounded to roughly 10 grams and discharge. She was also significant that her white count on the immediate postoperative day was 27, b ut on discharge, it went only to 10. Her bowel and bladder function returned, and she was moving her bowel as well as voiding without difficulty. PAST MEDICAL HISTORY: Positive for asthma as well as some hypertension. SURGICAL HISTORY: Positive for section x4, as well as diagnostic laparoscopy. She also had a tonsillectomy and adenoidectomy. ALLERGIES: NONE KNOWN. CURRENT MEDICATIONS: 1. Motrin. 2. Proventil inhaler. 3. Oxycodone. SOCIAL HISTORY: The patient is , lives with her spouse. 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 REVIEW OF SYSTEMS Negative at that point. PHYSICAL EXAMINATION VITAL SIGNS: In the ED showed a blood pressure of 124/93 but a pulse of 120. She was afebrile. HEENT: Pupils are equal, round. Extraocular muscles are intact. HEART: Regular rate and rhythm without murmurs. LUNGS: Waterman shows wheezes throughout. ABDOMEN: Very tender. She complained of tenderness and pain whenever she moved. There is no calf tend erness, negative Homans sign. She had a CT, which showed evidence of an 8 cm abscess in the right low er quadrant as well as a 5 cm abscess in the pelvis. LABORATORY: Her white count showed a hemoglobin of 10.2, hematocrit was 30.3. Chemistry showed hypoka lemia and hyponatremia and glucose at 161. IMPRESSION: 1. Bilateral pelvic hematomas with abscess formation. 2. Status post open abdominal hysterectomy with bilateral salpingectomy, as well as left oophorectomy with cystoscopy. PLAN: I have explained to her the risks and benefits of infection, injury to pelvic organs, which inc lude bowel and bladder. She is also aware of the potential for DVT with PE. We will plan to do an exp loratory laparotomy/laparoscopy with drainage. JOB #: [id number] EXT JOB #:[id number]
[2017-03-22] MEDS: LACTATED RINGERS 1,000 ML IV SCH ×2 (09:21→20:04)
[2017-03-22] MEDS: NICOTINE 14 MG PATCH TOP SCH (10:06)
[2017-03-22] MEDS: buPROPion SR 150 MG TABLET PO SCH ×2 (10:06→21:38)
[2017-03-22] MEDS: FAMOTIDINE 20 MG TABLET PO SCH (10:17)
[2017-03-22] MEDS: PIPERACILLIN/TAZOBACTAM 4.5 GM in SODIUM CHLORIDE 0.9% MINIBAG 100 ML IV SCH ×3 (10:17→21:58)
[2017-03-22] MEDS ORDERED: cloNIDine 0.1 MG TABLET PO PRN (10:46)
[2017-03-22] MEDS: metroNIDAZOLE 500 MG/100 ML 100 ML IV SCH ×3 (12:15→23:46)
--- NOTE | 2017-03-22 12:17 | OPERATIVE REPORT ---
DATE OF SURGERY: 03/22/2017 00:00:00 PREOPERATIVE DIAGNOSIS: 1. Bilateral pelvic hematomas. 2. Bilateral pelvic abscesses. 3. Status post total abdominal hysterectomy with bilateral salpingectomy, and right oophorectomy with cystoscopy. POSTOPERATIVE DIAGNOSIS: 1. Bilateral hematomas with abscess formation. 2. Status post total abdominal hysterectomy with bilateral salpingectomy. NAME OF PROCEDURE: 1. Diagnostic laparoscopy with intraperitoneal drainage and irrigation of bilateral pelvic hematoma and abscess formations. 2. Placement of Steve-Vic, both in the left and right lower quadrants. SURGEON: Simeon Daniel MD FINANCIAL INTERN: Simeon Berkowitz MD ANESTHESIA: General via endotracheal tube. ESTIMATED BLOOD LOSS: 350 mL. URINE OUTPUT: 550 mL. FINDINGS: Bilateral pelvic hematomas with abscess formation. Adhesions of the omentum to the anterior pelvic wall. No evidence of any active bleeding. PROCEDURE: Following adequate general anesthesia, the patient was placed in the supine position with Gildardo stirrups. At this point, she was prepped in the usual fashion. A La catheter was placed under sterile conditions. A time-out was then performed, in which the patient was identified, as well as concerns were discussed and those of potential bleeding. It was decided to proceed on with diagnostic laparoscopy, as this hopefully would cause minimal trauma and allow her a more speedy recovery. At this point, she was draped in the usual fashion. A speculum was placed in the vagina. The cervix was surgically absent. The suture lines were palpated; however, they could not be visualized. A sponge stick was placed. At this point, the emergency communications operator's gloves were changed. A stab wound was made in the subumbilical region where she previously had a diagnostic laparoscopy. Then, a 5 mm long port was placed under direct visualization. CO2 was used to insufflate the abdominal cavity. There was no evidence of an injury at the point of insertion. There was evidence of omental adhesions to the anterior abdominal wall. Left and right lower quadrant incisions were made, and ports were placed under direct visualization. At this point, utilizing blunt dissection, the peritoneum was pushed off the anterior abdominal wall. A pelvic hematoma was encountered in the left lower quadrant, which extended all the way into the pelvis. This was irrigated with copious amounts of sterile saline and suctioned. There was no evidence of any bleeding from the suture lines on the left-hand side. The cul-de-sac was irrigated with copious amounts, and there was adherent clot. Saline with 5000 units of heparin was placed to try and dislodge some of these clots. At this point, the right ovary was inspected, and there was evidence of hematoma on the right anterior pelvic wall going posterior to the ovary. This was likewise irrigated with copious amounts of sterile saline. The area was inspected for bleeding, and none was noted. Roughly , 15 liters were utilized to irrigate the pelvis. At this point, 2 round Steve -Vic were placed through the 5 mm ports, both in the left lower and right lower quadrants. This was done under direct visualization. The drains were allowed to go into the cul-de-sac and go to the bottom of the hematoma which had been removed. The trocars were then removed. At this point, roughly 1.5 liters of sterile saline was irrigated in the abdominal cavity. The Steve- Vic were then sutured in place with 0 silk. The subumbilical port was removed , and the CO2 was allowed to escape. At this point, the Steve-Vic were hooked to their bulbs, and there was free flow of initially serous and then serosanguineous fluid. This started to lighten and decreased with time. At this point, the 5 mm port was removed in the subumbilical region. The port was then sutured subcutaneously with 4-0 Monocryl. Dermabond was placed here. The incision from her previous midline hysterectomy was reapproximated in the superior portion with subcuticular 4-0 Monocryl. This was then dressed with Steri-Strips, and then a wound VAC was placed. During the case, a sponge stick was placed in the rectum to test for evidence of any kind of defects in the rectal mucosa, and none were noted. There was no evidence of any air or gas, or any other defects at that particular time. A hematocrit was requested from the lab to be spun off the serosanguineous fluid to try and determine if this was fresh blood or whether this was just a serosanguineous discharge. The lab at this point refused to do this, despite being requested by the physician. The patient tolerated the procedure well and was taken to recovery in stable condition. The sponge and needle counts were correct. JOB #: [id number] EXT JOB #:[id number] FLORECITA
[2017-03-22] MEDS: SODIUM CHLORIDE FLUSH 0.9% 10 ML SYRINGE IVP SCH ×2 (14:57→21:39)
--- NOTE | 2017-03-22 18:56 | PROVIDER PROGRESS NOTE ---
Subjective - General Admit Date: 03/22/17 Procedure Date: 03/22/17 Post Op Days: 0 Procedure Performed: L Scope with CANDIDO Drain Insertion - Review of Systems Wound/Incisions: positive: Healing well, Other (CANDIDO drainage decreasing) Drain Type: CANDIDO X2; La General: positive: Fatigue HEENT: positive: No symptoms Pulmonary: positive: No symptoms Cardiovascular: positive: No symptoms Gastrointestinal: positive: Abdominal pain (Appropriate for surgery) Genitourinary: positive: No symptoms Musculoskeletal: positive: No symptoms Skin: positive: No symptoms Psychiatric: positive: No symptoms Objective - Patient Data Vital Signs: Vital Signs x48h Temp Pulse Resp BP Pulse Ox 03/22/17 18:05 96 12 134/79 H 93 03/22/17 17:00 100 20 146/93 H 93 03/22/17 16:00 99.3 F 94 16 124/74 97 03/22/17 15:00 98 20 130/79 96 03/22/17 14:00 92 16 128/75 96 03/22/17 13:00 96 20 126/79 95 03/22/17 12:00 99.3 F 100 16 125/72 93 03/22/17 11:00 99 12 124/75 93 Weight: Weight 03/20/17 03/21/17 03/22/17 23:59 23:59 23:59 Weight (kg) 92.986 kg Intake & Output: Intake and Output Totals x24h 03/20/17 03/21/17 03/22/17 23:59 23:59 23:59 Intake Total 1325 Output Total 1255 Balance 70 - Lab Results Lab Results: 03/21/17 22:26 03/22/17 05:36 Other Lab Results: Lab Results x24hrs 03/22/17 03/22/17 03/22/17 Range/Units 17:53 12:31 05:36 Sodium 131 L (135-145) mmol/L Potassium 3.7 (3.5-5.0) mmol/L Chloride 100 L (101-111) mmol/L Carbon Dioxide 23 (21-32) mmol/L Anion Gap 8.0 (6-13) BUN 12 (6-20) mg/dL Creatinine 0.6 (0.4-1.0) mg/dL Estimated GFR (MDRD) 110 (>89) Glucose 159 H (70-100) mg/dL POC Whole Bld Glucose 141 H 143 H (70 - 100) mg/dL Calcium 8.1 L (8.5-10.3) mg/dL Total Bilirubin 1.2 H (0.2-1.0) mg/dL AST 15 (10-42) IU/L ALT 15 (10-60) IU/L Alkaline Phosphatase 53 (42-121) IU/L Total Protein 6.5 L (6.7-8.2) g/dL Albumin 3.1 L (3.2-5.5) g/dL Globulin 3.4 (2.1-4.2) g/dL Albumin/Globulin Ratio 0.9 L (1.0-2.2) Blood Type Antibody Screen Crossmatch IS Only 03/22/17 Range/Units 05:36 Sodium (135-145) mmol/L Potassium (3.5-5.0) mmol/L Chloride (101-111) mmol/L Carbon Dioxide (21-32) mmol/L Anion Gap (6-13) BUN (6-20) mg/dL Creatinine (0.4-1.0) mg/dL Estimated GFR (MDRD) (>89) Glucose (70-100) mg/dL POC Whole Bld Glucose (70 - 100) mg/dL Calcium (8.5-10.3) mg/dL Total Bilirubin (0.2-1.0) mg/dL AST (10-42) IU/L ALT (10-60) IU/L Alkaline Phosphatase (42-121) IU/L Total Protein (6.7-8.2) g/dL Albumin (3.2-5.5) g/dL Globulin (2.1-4.2) g/dL Albumin/Globulin Ratio (1.0-2.2) Blood Type O POSITIVE Antibody Screen NEGATIVE Crossmatch IS Only See Detail - Current Medications Current Medications: Current Medications Generic Name Dose Route Start Last Admin Trade Name Freq PRN Reason Stop Dose Admin Bupropion HCl 150 mg 03/22/17 10:00 03/22/17 10:06 Wellbutrin Sr PO Not Given BID BRYANT Famotidine 20 mg 03/22/17 09:00 03/22/17 10:17 Pepcid PO 20 mg DAILY BRYANT Administration Lactated Ringer's 1,000 mls @ 125 mls/hr 03/22/17 08:00 03/22/17 09:21 Lr IV 125 mls/hr .Q8H BRYANT Administration Metronidazole 100 mls @ 100 mls/hr 03/22/17 12:00 03/22/17 18:01 Flagyl 500 Mg/100 Ml IV 100 mls/hr Q6HR BRYANT Administration Piperacillin Sod/Tazobactam 100 mls @ 200 mls/hr 03/22/17 10:00 03/22/17 15:59 Sod 4.5 gm/ Sodium Chloride IV 200 mls/hr Q6H BRYANT Administration Morphine Sulfate/Sodium Chloride 0 mg 03/22/17 07:38 03/22/17 08:47 Morphine Building Construction Supervisor (Use Building Construction Supervisor Order Set) IV 50 mg PRINTING EQUIPMENT MECHANIC PRN Administration PAIN Protocol Nicotine 1 patch 03/22/17 10:00 03/22/17 10:06 Nicoderm TOP Not Given DAILY BRYANT Sodium Chloride 10 ml 03/22/17 14:00 03/22/17 14:57 Normal Saline Flush 0.9% IVP 10 ml Q8HR BRYANT Administration Physical Exam - Physical Exam General: positive: No acute distress, Alert HEENT: positive: Moist mucous membranes Neck: positive: Supple w/out meningeal sx Cardiac: positive: Regular Rate, Regular Rhythm, Murmur Present (2/6 flow murmur ) Resipratory: positive: Clear to ausultation jovita, Other (BS distant;) Abdomen: positive: Other (Drains functional & Wound Vac sealed) Extremities: positive: No pedal edema Skin: positive: Warm and dry Neurologic: positive: Alert and Oriented X 3, Normal Sensation, Normal Speech Assessment/Plan - Problem List (1) Anemia Impression: Known Postop anemia but compensated for. Am CBC was cancelled but reordered tonight to establish a postop baseline. Doubt continued bleeding. Qualifiers: Anemia type: unspecified type Qualified Code(s): D64.9 - Anemia, unspecified (2) Intra-abdominal abscess post-procedure Impression: 1. Recovering well, 2. pain controlled, 3. VS stable, drain output decreasing, Therefore doubt continued bleeding 4. Infective sources drained and broad spectrum combination ABX
[2017-03-22 18:59] LABS: BASOPHILS % (AUTO) 0.1 %; HCT - HEMATOCRIT 26.7 % (37.0-47.0); LYMPHOCYTES # (AUTO) 0.7 10^3/uL (1.5-3.5); LYMPHOCYTES % (AUTO) 3.5 %; MEAN CORPUSCULAR HEMOGLOBIN 29.8 pg (27.0-31.0); MEAN CORPUSCULAR HGB CONC 33.7 g/dL (32.0-36.0); MEAN CORPUSCULAR VOLUME 88.7 fL (81.0-99.0); MEAN PLATELET VOLUME 7.6 fL (7.9-10.8); MONOCYTES # (AUTO) 0.9 10^3/uL (0.0-1.0); MONOCYTES % (AUTO) 4.4 %; NEUTROPHILS # (AUTO) 18.2 10^3/uL (1.5-6.6); RED BLOOD COUNT 3.02 10^6/uL (4.20-5.40); RED CELL DISTRIBUTION WIDTH 13.4 % (12.0-15.0); UNCORRECTED WHITE BLOOD COUNT 19.8 x10^3/uL; WHITE BLOOD COUNT 19.8 x10^3/uL (4.8-10.8)
[2017-03-23] MEDS: IPRATROPIUM/ALBUTEROL 3 ML NEB INH PRN (00:27)
[2017-03-23] MEDS: MORPHINE PCA 50 MG IV PRN ×2 (00:42→16:28)
[2017-03-23] MEDS: PIPERACILLIN/TAZOBACTAM 4.5 GM in SODIUM CHLORIDE 0.9% MINIBAG 100 ML IV SCH ×4 (04:23→21:33)
[2017-03-23] MEDS: SODIUM CHLORIDE FLUSH 0.9% 10 ML SYRINGE IVP SCH ×3 (05:45→23:14)
[2017-03-23 05:48] LABS: HCT - HEMATOCRIT 24.6 % (37.0-47.0); HGB - HEMOGLOBIN 8.3 g/dL (12.0-16.0); LYMPHOCYTES # (AUTO) 0.8 10^3/uL (1.5-3.5); LYMPHOCYTES % (AUTO) 4.4 %; MEAN CORPUSCULAR HEMOGLOBIN 30.3 pg (27.0-31.0); MEAN CORPUSCULAR HGB CONC 33.6 g/dL (32.0-36.0); MEAN PLATELET VOLUME 8.5 fL (7.9-10.8); MONOCYTES # (AUTO) 0.9 10^3/uL (0.0-1.0); MONOCYTES % (AUTO) 5.1 %; NEUTROPHILS # (AUTO) 16.7 10^3/uL (1.5-6.6); NEUTROPHILS % (AUTO) 90.5 %; RED BLOOD COUNT 2.74 10^6/uL (4.20-5.40); RED CELL DISTRIBUTION WIDTH 13.9 % (12.0-15.0); UNCORRECTED WHITE BLOOD COUNT 18.5 x10^3/uL; WHITE BLOOD COUNT 18.5 x10^3/uL (4.8-10.8)
[2017-03-23 05:53] LABS: ALBUMIN/GLOBULIN RATIO 0.8 (1.0-2.2); BILIRUBIN,TOTAL 1.8 mg/dL (0.2-1.0); CALCIUM 8.4 mg/dL (8.5-10.3); CREATININE 0.6 mg/dL (0.4-1.0); MAGNESIUM 1.7 mg/dL (1.7-2.8); PHOSPHORUS 2.2 mg/dL (2.5-4.6); POTASSIUM 3.3 mmol/L (3.5-5.0); TOTAL PROTEIN 5.7 g/dL (6.7-8.2)
[2017-03-23] MEDS: LACTATED RINGERS 1,000 ML IV SCH ×3 (06:03→19:41)
[2017-03-23] MEDS: metroNIDAZOLE 500 MG/100 ML 100 ML IV SCH ×4 (06:04→23:35)
[2017-03-23] MEDS ORDERED: POTASSIUM CHLOR 20 MEQ/100 ML 100 ML IV SCH (07:00)
[2017-03-23] MEDS: NEUTRA-PHOS 250 MG TABLET PO SCH ×2 (07:13→09:19)
[2017-03-23] MEDS ORDERED: POTASSIUM CHLORIDE 20 MEQ TABLET PO ONE (07:21)
[2017-03-23] MEDS: ONDANSETRON 4 MG/2 ML VIAL IVP PRN ×2 (07:54→18:19)
[2017-03-23] MEDS: SODIUM CHLORIDE FLUSH 0.9% 10 ML SYRINGE IVP PRN (07:54)
[2017-03-23] MEDS ORDERED: SODIUM CHLORIDE FLUSH 0.9% 10 ML SYRINGE IVP ONE (07:55)
[2017-03-23] MEDS: MAGNESIUM OXIDE 400 MG TABLET PO SCH ×2 (08:24→13:44)
[2017-03-23] MEDS: ACETAMINOPHEN 325 MG TABLET PO PRN ×3 (08:24→18:02)
--- NOTE | 2017-03-23 08:33 | PROVIDER PROGRESS NOTE ---
Subjective - General Admit Date: 03/22/17 Procedure Date: 03/22/17 Post Op Days: 1 Procedure Performed: L Scope Drainage of Hematomas/Abcess with CANDIDO Drain Insertion - Review of Systems Wound/Incisions: positive: Healing well, Other (CANDIDO drainage decreasing) Drain Type: CANDIDO X2; La General: positive: Fatigue, Other (Pain 6/10 up in chair) HEENT: positive: No symptoms Pulmonary: positive: No symptoms (need meb neb last night) Cardiovascular: positive: No symptoms Gastrointestinal: positive: Abdominal pain (Appropriate for surgery) Genitourinary: positive: No symptoms Musculoskeletal: positive: No symptoms Skin: positive: No symptoms Psychiatric: positive: No symptoms (difficulty sleeping) Objective - Patient Data Reviewed Vital Signs: Yes Vital Signs: Vital Signs x48h Temp Pulse Pulse Resp BP Pulse Ox 03/23/17 08:00 37.4 C 92 16 132/85 H 96 03/23/17 07:30 92 16 03/23/17 07:00 92 13 135/83 H 95 03/23/17 05:59 98 17 92 03/23/17 05:00 95 17 136/83 H 93 03/23/17 04:29 37.5 C 96 16 93 03/23/17 04:00 97 17 108/69 91 L 03/23/17 03:00 93 18 116/68 94 03/23/17 02:00 96 17 111/66 94 03/23/17 01:00 101 H 18 120/70 90 L Weight: Weight 03/21/17 03/22/17 03/23/17 23:59 23:59 23:59 Weight (kg) 92.986 kg 105 kg Intake & Output: Intake and Output Totals x24h 03/21/17 03/22/17 03/23/17 23:59 23:59 23:59 Intake Total 2165 865 Output Total 1583 465 Balance 582 400 - Lab Results Lab Results: 03/23/17 04:52 03/23/17 04:52 Other Lab Results: Lab Results x24hrs 03/23/17 03/23/17 03/22/17 Range/Units 04:52 04:52 23:49 WBC 18.5 H (4.8-10.8) x10^3/uL RBC 2.74 L (4.20-5.40) 10^6/uL Hgb 8.3 L (12.0-16.0) g/dL Hct 24.6 L (37.0-47.0) % MCV 90.0 (81.0-99.0) fL MCH 30.3 (27.0-31.0) pg MCHC 33.6 (32.0-36.0) g/dL RDW 13.9 (12.0-15.0) % Plt Count 253 (130-450) 10^3/uL MPV 8.5 (7.9-10.8) fL Neut # 16.7 H (1.5-6.6) 10^3/uL Lymph # 0.8 L (1.5-3.5) 10^3/uL Nuckolls # 0.9 (0.0-1.0) 10^3/uL Eos # 0.0 (0.0-0.7) 10^3/uL Baso # 0.0 (0.0-0.1) 10^3/uL Absolute Nucleated RBC 0.00 x10^3/uL Nucleated RBCs 0.0 /100WBC Sodium 135 (135-145) mmol/L Potassium 3.3 L (3.5-5.0) mmol/L Chloride 101 (101-111) mmol/L Carbon Dioxide 28 (21-32) mmol/L Anion Gap 6.0 (6-13) BUN 12 (6-20) mg/dL Creatinine 0.6 (0.4-1.0) mg/dL Estimated GFR (MDRD) 110 (>89) Glucose 128 H (70-100) mg/dL POC Whole Bld Glucose 128 H (70 - 100) mg/dL Calcium 8.4 L (8.5-10.3) mg/dL Phosphorus 2.2 L (2.5-4.6) mg/dL Magnesium 1.7 (1.7-2.8) mg/dL Total Bilirubin 1.8 H (0.2-1.0) mg/dL AST 18 (10-42) IU/L ALT 16 (10-60) IU/L Alkaline Phosphatase 45 (42-121) IU/L Total Protein 5.7 L (6.7-8.2) g/dL Albumin 2.5 L (3.2-5.5) g/dL Globulin 3.2 (2.1-4.2) g/dL Albumin/Globulin Ratio 0.8 L (1.0-2.2) 03/22/17 03/22/17 03/22/17 Range/Units 18:51 17:53 12:31 WBC 19.8 H (4.8-10.8) x10^3/uL RBC 3.02 L (4.20-5.40) 10^6/uL Hgb 9.0 L (12.0-16.0) g/dL Hct 26.7 L (37.0-47.0) % MCV 88.7 (81.0-99.0) fL MCH 29.8 (27.0-31.0) pg MCHC 33.7 (32.0-36.0) g/dL RDW 13.4 (12.0-15.0) % Plt Count 271 (130-450) 10^3/uL MPV 7.6 L (7.9-10.8) fL Neut # 18.2 H (1.5-6.6) 10^3/uL Lymph # 0.7 L (1.5-3.5) 10^3/uL Nuckolls # 0.9 (0.0-1.0) 10^3/uL Eos # 0.0 (0.0-0.7) 10^3/uL Baso # 0.0 (0.0-0.1) 10^3/uL Absolute Nucleated RBC 0.00 x10^3/uL Nucleated RBCs 0.0 /100WBC Sodium (135-145) mmol/L Potassium (3.5-5.0) mmol/L Chloride (101-111) mmol/L Carbon Dioxide (21-32) mmol/L Anion Gap (6-13) BUN (6-20) mg/dL Creatinine (0.4-1.0) mg/dL Estimated GFR (MDRD) (>89) Glucose (70-100) mg/dL POC Whole Bld Glucose 141 H 143 H (70 - 100) mg/dL Calcium (8.5-10.3) mg/dL Phosphorus (2.5-4.6) mg/dL Magnesium (1.7-2.8) mg/dL Total Bilirubin (0.2-1.0) mg/dL AST (10-42) IU/L ALT (10-60) IU/L Alkaline Phosphatase (42-121) IU/L Total Protein (6.7-8.2) g/dL Albumin (3.2-5.5) g/dL Globulin (2.1-4.2) g/dL Albumin/Globulin Ratio (1.0-2.2) - Current Medications Current Medications: Current Medications Generic Name Dose Route Start Last Admin Trade Name Freq PRN Reason Stop Dose Admin Acetaminophen 650 mg 03/22/17 07:23 03/23/17 08:24 Tylenol PO 650 mg Q4HR PRN Administration Pain 1 to 4 Albuterol/Ipratropium 3 ml 03/22/17 09:29 03/23/17 00:27 Duoneb INH 3 ml RTQID PRN Administration Shortness of Air/Wheezing Bupropion HCl 150 mg 03/22/17 10:00 03/22/17 21:38 Wellbutrin Sr PO Not Given BID BRYANT Famotidine 20 mg 03/22/17 09:00 03/22/17 10:17 Pepcid PO 20 mg DAILY BRYANT Administration Lactated Ringer's 1,000 mls @ 125 mls/hr 03/22/17 08:00 03/23/17 06:03 Lr IV 125 mls/hr .Q8H BRYANT Administration Metronidazole 100 mls @ 100 mls/hr 03/22/17 12:00 03/23/17 06:04 Flagyl 500 Mg/100 Ml IV 100 mls/hr Q6HR BRYANT Administration Piperacillin Sod/Tazobactam 100 mls @ 200 mls/hr 03/22/17 10:00 03/23/17 04:23 Sod 4.5 gm/ Sodium Chloride IV 200 mls/hr Q6H BRYANT Administration Magnesium Oxide 400 mg 03/23/17 08:00 03/23/17 08:24 Mag Ox PO 03/23/17 14:01 400 mg Q6H BRYANT Administration Protocol Morphine Sulfate/Sodium Chloride 0 mg 03/22/17 07:38 03/23/17 00:42 Morphine Metal Drill Press Operator (Use Metal Drill Press Operator Order Set) IV 50 mg HOME TEACHING GRADES 9 THRU 12 TEACHER PRN Administration PAIN Protocol Nicotine 1 patch 03/22/17 10:00 03/22/17 10:06 Nicoderm TOP Not Given DAILY BRYANT Ondansetron HCl 4 mg 03/22/17 07:23 03/23/17 07:54 Zofran Inj IVP 4 mg Q6HR PRN Administration Nausea / Vomiting Sodium Chloride 10 ml 03/22/17 07:23 03/23/17 07:54 Normal Saline Flush 0.9% IVP 10 ml PRN PRN Administration NEEDED PER PROVIDER ORDERS Sodium Chloride 10 ml 03/22/17 14:00 03/23/17 05:45 Normal Saline Flush 0.9% IVP Not Given Q8HR BRYANT Sodium Phosphate 250 mg 03/23/17 07:00 03/23/17 07:13 K-Phos Neutral PO 03/23/17 09:01 250 mg Q2H BRYANT Administration Protocol - Physical Exam Wound/Incisions: positive: Dressing dry and intact General Appearance: positive: Moderate distress (lower abdomin) Respiratory: positive: Chest non-tender, No respiratory distress, Breath sounds nml. negative: Wheezes Cardiovascular: positive: Regular rate & rhythm Abdomen: positive: Tenderness. negative: Rebound Back: positive: CVA tenderness (L) Skin: positive: Color nml, No rash, Warm, Dry. negative: Cyanosis Extremities: positive: Calf tenderness, Concha's sign/cords Neurologic/Psychiatric: positive: Oriented x3 Impression/Plan - Problem List Problem List: S/P Laprocscopic drainage of pelvic Hematom/abcess. WBC still elivated. will follow clinicly. Anemia stable
[2017-03-23] MEDS: ALPRAZolam 0.25 MG TABLET PO PRN (08:52)
[2017-03-23] MEDS: FAMOTIDINE 20 MG TABLET PO SCH (09:19)
[2017-03-23] MEDS: IBUPROFEN 600 MG TABLET PO PRN ×2 (09:19→15:06)
[2017-03-23] MEDS: buPROPion SR 150 MG TABLET PO SCH ×2 (10:21→21:03)
[2017-03-23] MEDS: NICOTINE 14 MG PATCH TOP SCH (10:22)
--- NOTE | 2017-03-23 12:29 | CONSULTATION NOTE ---
DATE OF CONSULTATION: 03/22/2017 00:00:00 SERVICE REQUESTING CONSULTATION: Gynecology, Simeon Daniel MD. SERVICE CONSULTING PHYSICIAN: Hospitalist service, Bryn Flores MD. REASON FOR CONSULTATION: Medical management in the ICU. IDENTIFYING INFORMATION: The patient is a 41-year-old female with post surgery. Information history i s obtained from Dr. Daniel and Dr. Berkowitz fro LINE CONSTRUCTION ENGINEER surgery, as well as personal review of past medical re cords and the data collected during this visit. All were used in addition to her examination and eval uation of this person in preparation of this document. HISTORY OF PRESENT ILLNESS: The patient is a 41-year-old female who presented to the emergency depart ment for abdominal pain. The patient had an open hysterectomy and a unilateral oophorectomy on the on 03/17/2017. She was discharged home on Wednesday, 03/20, and returns because she had some increa sing abdominopelvic pain and came back to the emergency department for evaluation. REVIEW OF SYSTEMS: She denies fever or chills. She has had no sore throat, chest pain, cough. She has had nausea, constipation and abdominal pain. The rest of the complete review of systems is negative as queried. PAST MEDICAL HISTORY: The patient has had asthma, is on an inhaler, had pneumonia in the past. She roman s had cholelithiasis. Does have chronic vision loss. She also has had episodes of gout in the past. PAST SURGICAL HISTORY: Carpal tunnel surgery, section, D and C, tubal ligation. She has had a previous laparoscopic surgery. ALLERGIES: NONE KNOWN. HOME MEDICATIONS 1. Albuterol inhaler t.i.d. 2. Motrin 800 mg q.8h. p.r.n. 3. Oxycodone 5/325 q.6h. p.r.n. 4. Bupropion SR 150 mg b.i.d. PERSONAL AND SOCIAL HISTORY: The patient is a 1/2 a pack a day smoker. No history of substance abuse. She is , lives with her spouse. FAMILY HISTORY: The patient's family history is not reported. PHYSICAL EXAMINATION VITAL SIGNS: Pulse 104, blood pressure 127/75, 16, 95 room air saturation. Temperature 37.1. EYES: EOM within normal limits, PERRL, nonicteric. MOUTH AND THROAT: Not seen. The patient is sedated. NECK: No lymphadenopathy, no thyromegaly, no JVD. CHEST WALL: Nontender. Symmetric. No breast exam done. HEART: Sinus tachycardia. No murmurs, rubs, clicks. LUNGS: Clear, good air movement. ABDOMEN: Has dressings in place. No further examination. RECTAL/GENITAL EXAMINATION: Not done. EXTREMITIES: No gross edema. NEUROLOGICAL: Moves all extremities. No examination of cognition at this time. SKIN: No suspicious lesions, dermatitis. LABORATORY DATA: She has a white count of 19,000, 10 and 30 hemoglobin and hematocrit, platelets are 291. Sodium 131, potassium is 3.7, chloride is 100, CO2 23, BUN 12, creatinine 0.6. The patient's glu cose is 159. Lactic acid before surgery 0.9, calcium 8.1. Normal liver enzymes, albumin 3.1, glycohem oglobin of 5.4 on 03/18. The patient has a gram stain reported as having a few white cells and modera te gram positive cocci. before surgery. SUMMARY: This is a 41-year-old female status post hysterectomy and a unilateral oophorectomy on the eft in the last week who has developed an abscess around the vaginal cuff and kevin-ovarian. The patie nt has now presented to the emergency department with increased abdominal pain. The patient is admitt ed to the ICU and will be closely monitored in the ICU with antibiotics, specifically Zosyn and Flagy l to cover suspected bacteria and obtain superior abscess penetration. Further interventions, diagnos tic and therapeutic, will depend on her initial response. DIAGNOSES 1. Abdominal abscesses, post infection and unilateral oophorectomy. 2. Morbid obesity. 3. Asthma without exacerbation. 4. Tobacco abuse. 5. Perioperative hypertension. JOB #: [id number] EXT JOB #:[id number]
--- NOTE | 2017-03-23 16:24 | PROVIDER PROGRESS NOTE ---
Assessment/Plan - Problem List (1) Intra-abdominal abscess post-procedure Qualifiers: Encounter type: subsequent encounter Qualified Code(s): T81.4XXD - Infection following a procedure, subsequent encounter; K65.1 - Peritoneal abscess Assessment/Plan: Patient had a hysterectomy and left oopherectomy on 03/17/17 and was discharged home on 04/07 then returned due to increasing abdominopelvic painand was found to have leukocytosis with CT findings suspicious for abscess. patient was taken to OR and underwent Laprocscopic drainage of pelvic Hematoma/abcess we were consulted for medical management. Today patient continues to have abdominal pain post op and WBC is still elevated. Abdomen is tender but not surgical abd Decreased drainage from CANDIDO tube System Safety Engineer is following Consider repeat CT if WBC not improving or pain worsening Transfer to Med/surg once WBC coming down as VSS Plan: COntinue IV abx with IV zosyn and flagyl Awaiting cultures from abscess to better target antibiotics Monitor WBC (2) Hypokalemia Assessment/Plan: K was low this am Replace K Monitor (3) Hypophosphatemia Assessment/Plan: Phos low this am Replaced Monitor (4) HTN (hypertension) Qualifiers: Hypertension type: essential hypertension Qualified Code(s): I10 - Essential (primary) hypertension Assessment/Plan: Patient had periop HTN but BP now stable Not on on any antihypertensives Monitor (5) Asthma Assessment/Plan: Controlled on duonebs prn in the hospital (6) Tobacco abuse Assessment/Plan: Advised to quit smoking Nicotine patch - Current Meds Current Meds: Current Medications Generic Name Dose Route Start Last Admin Trade Name Freq PRN Reason Stop Dose Admin Acetaminophen 650 mg 03/22/17 07:23 03/23/17 13:45 Tylenol PO 650 mg Q4HR PRN Administration Pain 1 to 4 Albuterol/Ipratropium 3 ml 03/22/17 09:29 03/23/17 00:27 Duoneb INH 3 ml RTQID PRN Administration Shortness of Air/Wheezing Alprazolam 0.25 mg 03/22/17 09:28 03/23/17 08:52 Xanax PO 0.25 mg Q4HR PRN Administration Anxiety Bupropion HCl 150 mg 03/22/17 10:00 03/23/17 10:21 Wellbutrin Sr PO Not Given BID BRYANT Famotidine 20 mg 03/22/17 09:00 03/23/17 09:19 Pepcid PO 20 mg DAILY BRYANT Administration Lactated Ringer's 1,000 mls @ 125 mls/hr 03/22/17 08:00 03/23/17 06:03 Lr IV 125 mls/hr .Q8H BRYANT Administration Metronidazole 100 mls @ 100 mls/hr 03/22/17 12:00 03/23/17 12:10 Flagyl 500 Mg/100 Ml IV 100 mls/hr Q6HR BRYANT Administration Piperacillin Sod/Tazobactam 100 mls @ 200 mls/hr 03/22/17 10:00 03/23/17 10:10 Sod 4.5 gm/ Sodium Chloride IV 200 mls/hr Q6H BRYANT Administration Ibuprofen 600 mg 03/22/17 07:23 03/23/17 15:06 Motrin PO 600 mg Q6HR PRN Administration Pain 1 to 4 Morphine Sulfate/Sodium Chloride 0 mg 03/22/17 07:38 03/23/17 00:42 Morphine Glove Cutter (Use Glove Cutter Order Set) IV 50 mg ENERGY ADMINISTRATOR PRN Administration PAIN Protocol Nicotine 1 patch 03/22/17 10:00 03/23/17 10:22 Nicoderm TOP Not Given DAILY [facility] Ondansetron HCl 4 mg 03/22/17 07:23 03/23/17 07:54 Zofran Inj IVP 4 mg Q6HR PRN Administration Nausea / Vomiting Sodium Chloride 10 ml 03/22/17 07:23 03/23/17 07:54 Normal Saline Flush 0.9% IVP 10 ml PRN PRN Administration NEEDED PER PROVIDER ORDERS Sodium Chloride 10 ml 03/22/17 14:00 03/23/17 05:45 Normal Saline Flush 0.9% IVP Not Given Q8HR [facility] - Lab Result Lab results reviewed: Yes Fish Bone Diagrams: 03/23/17 04:52 03/23/17 04:52 - EKG Results EKG Interpreted Independently: Yes - Diagnostic Imaging Results Diagnostic Imaging Results: Final report reviewed - Additional Planning Condition/Complexity: Guarded Plan Discussed with:: Patient, Spouse Time Spent: 31-60 minutes Subjective - Subjective Patient Reports: Abdominal Pain (Continues to have abdominal pain diffusely but mostly in the lower abdomen), Other (No nausea or vomiting able to tolerate her breakfast, no diarrhea) Nursing Reports: No Complaints Objective Vital Signs: Vital Signs - 24 hr 03/22/17 03/22/17 03/22/17 17:00 18:05 19:00 Temperature Heart Rate Heart Rate [ 100 96 95 Monitoring electrodes] Respiratory 20 12 11 L Rate Blood Pressure 144/97 H [Left Brachial artery] Blood Pressure 146/93 H 134/79 H [Right Brachial artery] O2 Saturation 93 93 95 03/22/17 03/22/17 03/22/17 19:25 19:33 20:00 Temperature 37.1 C Heart Rate Heart Rate [ 94 100 Monitoring electrodes] Respiratory 19 21 18 Rate Blood Pressure 139/76 H [Left Brachial artery] Blood Pressure [Right Brachial artery] O2 Saturation 94 94 03/22/17 03/22/17 03/22/17 21:00 22:00 23:00 Temperature Heart Rate Heart Rate [ 97 97 99 Monitoring electrodes] Respiratory 18 17 19 Rate Blood Pressure 127/74 131/81 H 124/77 [Left Brachial artery] Blood Pressure [Right Brachial artery] O2 Saturation 95 97 96 03/23/17 03/23/17 03/23/17 00:00 00:30 01:00 Temperature 37.1 C Heart Rate 91 Heart Rate [ 93 101 H Monitoring electrodes] Respiratory 16 14 18 Rate Blood Pressure 143/90 H 120/70 [Left Brachial artery] Blood Pressure [Right Brachial artery] O2 Saturation 95 90 L 03/23/17 03/23/17 03/23/17 02:00 03:00 04:00 Temperature Heart Rate Heart Rate [ 96 93 97 Monitoring electrodes] Respiratory 17 18 17 Rate Blood Pressure 111/66 116/68 108/69 [Left Brachial artery] Blood Pressure [Right Brachial artery] O2 Saturation 94 94 91 L 03/23/17 03/23/17 03/23/17 04:29 05:00 05:59 Temperature 37.5 C Heart Rate Heart Rate [ 96 95 98 Monitoring electrodes] Respiratory 16 17 17 Rate Blood Pressure 136/83 H [Left Brachial artery] Blood Pressure [Right Brachial artery] O2 Saturation 93 93 92 03/23/17 03/23/17 03/23/17 07:00 07:30 08:00 Temperature 37.4 C Heart Rate 92 Heart Rate [ 92 92 Monitoring electrodes] Respiratory 13 16 16 Rate Blood Pressure 135/83 H 132/85 H [Left Brachial artery] Blood Pressure [Right Brachial artery] O2 Saturation 95 96 03/23/17 03/23/17 03/23/17 09:00 10:00 11:00 Temperature 36.9 C Heart Rate Heart Rate [ 100 95 88 Monitoring electrodes] Respiratory 16 15 13 Rate Blood Pressure 150/94 H 122/85 H 109/68 [Left Brachial artery] Blood Pressure [Right Brachial artery] O2 Saturation 95 96 03/23/17 03/23/17 03/23/17 12:00 13:00 14:56 Temperature 37.1 C Heart Rate Heart Rate [ 84 84 87 Monitoring electrodes] Respiratory 13 13 18 Rate Blood Pressure 105/62 119/73 132/74 H [Left Brachial artery] Blood Pressure [Right Brachial artery] O2 Saturation 96 96 03/23/17 16:04 Temperature 36.9 C Heart Rate Heart Rate [ 81 Monitoring electrodes] Respiratory 16 Rate Blood Pressure 125/83 H [Left Brachial artery] Blood Pressure [Right Brachial artery] O2 Saturation 96 Oxygen O2 Source Room air I&O (Last 24 Hrs): Intake and Output Totals x24h 03/21/17 03/22/17 03/23/17 23:59 23:59 23:59 Intake Total 2165 2633 Output Total 1583 1041 Balance 582 1592 General: Alert, Oriented x3, Moderate distress (Due to abdominal pain and discomfort) HEENT: Atraumatic, PERRLA, EOMI, Other (Dry mucus membranes) Neck: Supple, No JVD, No thyromegaly, +2 carotid pulse wo bruit, No LAD Lymphatic: no adenopathy Neuro: Alert, Non Focal, CN 2-12 Grossly Intact, Oriented Times 3 Cardiovascular: Regular rate, Normal S1, Normal S2, No murmurs Respiratory: Chest non-tender, No respiratory distress, Breath sounds nml Abdomen: Normal bowel sounds, Soft, No hepatospenomegaly, Other (Tenderness, diffuse, no guarding, no peritoneal signs, soft.) Extremities: No clubbing, No cyanosis, No edema, Normal pulses Skin: No rashes, No breakdown - Results Results: Laboratory Results WBC 18.5 x10^3/uL (4.8-10.8) H 03/23/17 04:52 RBC 2.74 10^6/uL (4.20-5.40) L 03/23/17 04:52 Hgb 8.3 g/dL (12.0-16.0) L 03/23/17 04:52 Hct 24.6 % (37.0-47.0) L 03/23/17 04:52 MCV 90.0 fL (81.0-99.0) 03/23/17 04:52 MCH 30.3 pg (27.0-31.0) 03/23/17 04:52 MCHC 33.6 g/dL (32.0-36.0) 03/23/17 04:52 RDW 13.9 % (12.0-15.0) 03/23/17 04:52 Plt Count 253 10^3/uL (130-450) 03/23/17 04:52 MPV 8.5 fL (7.9-10.8) 03/23/17 04:52 Neut # 16.7 10^3/uL (1.5-6.6) H 03/23/17 04:52 Lymph # 0.8 10^3/uL (1.5-3.5) L 03/23/17 04:52 [place]key # 0.9 10^3/uL (0.0-1.0) 03/23/17 04:52 Eos # 0.0 10^3/uL (0.0-0.7) 03/23/17 04:52 Baso # 0.0 10^3/uL (0.0-0.1) 03/23/17 04:52 Absolute Nucleated RBC 0.00 x10^3/uL 03/23/17 04:52 Nucleated RBCs 0.0 /100WBC 03/23/17 04:52 Sodium 135 mmol/L (135-145) 03/23/17 04:52 Potassium 3.3 mmol/L (3.5-5.0) L 03/23/17 04:52 Chloride 101 mmol/L (101-111) 03/23/17 04:52 Carbon Dioxide 28 mmol/L (21-32) 03/23/17 04:52 Anion Gap 6.0 (6-13) 03/23/17 04:52 BUN 12 mg/dL (6-20) 03/23/17 04:52 Creatinine 0.6 mg/dL (0.4-1.0) 03/23/17 04:52 Estimated GFR (MDRD) 110 (>89) 03/23/17 04:52 Glucose 128 mg/dL (70-100) H 03/23/17 04:52 POC Whole Bld Glucose 122 mg/dL (70 - 100) H 03/23/17 13:34 Lactic Acid 0.9 mmol/L (0.5-2.2) 03/21/17 22:26 Calcium 8.4 mg/dL (8.5-10.3) L 03/23/17 04:52 Phosphorus 2.2 mg/dL (2.5-4.6) L 03/23/17 04:52 Magnesium 1.7 mg/dL (1.7-2.8) 03/23/17 04:52 Total Bilirubin 1.8 mg/dL (0.2-1.0) H 03/23/17 04:52 AST 18 IU/L (10-42) 03/23/17 04:52 ALT 16 IU/L (10-60) 03/23/17 04:52 Alkaline Phosphatase 45 IU/L (42-121) 03/23/17 04:52 Total Protein 5.7 g/dL (6.7-8.2) L 03/23/17 04:52 Albumin 2.5 g/dL (3.2-5.5) L 03/23/17 04:52 Globulin 3.2 g/dL (2.1-4.2) 03/23/17 04:52 Albumin/Globulin Ratio 0.8 (1.0-2.2) L 03/23/17 04:52 Lipase < 10 U/L (22-51) L 03/21/17 22:26 Ur Specific [place] 1.020 (1.002-1.030) 03/21/17 23:18 Urine HCG, Qual NEGATIVE 03/21/17 23:18 Blood Type O POSITIVE 03/22/17 05:36 Antibody Screen NEGATIVE 03/22/17 05:36 Crossmatch IS Only See Detail 03/22/17 05:36 - Procedures Procedures: Procedures APPLICATION OF SPLINT (01/13/13) CARPAL TUNNEL RELEASE (04/06/13) EXTRACTION OF ENDOMETRIUM, ENDO (02/16/17) RELEASE GREATER OMENTUM, PERCUTANEOUS ENDOSCOPIC APPROACH (02/16/17)
--- NOTE | 2017-03-23 16:57 | PROVIDER PROGRESS NOTE ---
Subjective - General Admit Date: 03/22/17 Procedure Date: 03/22/17 Post Op Days: 1 Procedure Performed: L Scope Drainage of Hematomas/Abcess with CANDIDO Drain Insertion - Review of Systems Wound/Incisions: positive: Dressing dry and intact Drain Type: CANDIDO X2; La General: positive: No symptoms (Pt is currently sleeping. Nursing reports pt is improving. Ambulated x3, smiling. Pain improving.), Fatigue, Other (Pain 6/ 10 up in chair) HEENT: positive: No symptoms Pulmonary: positive: No symptoms (need meb neb last night) Cardiovascular: positive: No symptoms Gastrointestinal: positive: Abdominal pain (Appropriate for surgery) Genitourinary: positive: No symptoms Musculoskeletal: positive: No symptoms Skin: positive: No symptoms Psychiatric: positive: No symptoms (difficulty sleeping) Objective - Patient Data Reviewed Vital Signs: Yes Vital Signs: Vital Signs x48h Temp Pulse Resp BP Pulse Ox 03/23/17 16:04 36.9 C 81 16 125/83 H 96 03/23/17 14:56 87 18 132/74 H 96 03/23/17 13:00 37.1 C 84 13 119/73 96 03/23/17 12:00 84 13 105/62 03/23/17 11:00 88 13 109/68 03/23/17 10:00 36.9 C 95 15 122/85 H 96 03/23/17 09:00 100 16 150/94 H 95 Weight: Weight 03/21/17 03/22/17 03/23/17 23:59 23:59 23:59 Weight (kg) 92.986 kg 105 kg Intake & Output: Intake and Output Totals x24h 03/21/17 03/22/17 03/23/17 23:59 23:59 23:59 Intake Total 2165 2633 Output Total 1583 1041 Balance 582 1592 - Lab Results Lab Results: 03/23/17 04:52 03/23/17 04:52 Other Lab Results: Lab Results x24hrs 03/23/17 03/23/17 03/23/17 Range/Units 13:34 04:52 04:52 WBC 18.5 H (4.8-10.8) x10^3/uL RBC 2.74 L (4.20-5.40) 10^6/uL Hgb 8.3 L (12.0-16.0) g/dL Hct 24.6 L (37.0-47.0) % MCV 90.0 (81.0-99.0) fL MCH 30.3 (27.0-31.0) pg MCHC 33.6 (32.0-36.0) g/dL RDW 13.9 (12.0-15.0) % Plt Count 253 (130-450) 10^3/uL MPV 8.5 (7.9-10.8) fL Neut # 16.7 H (1.5-6.6) 10^3/uL Lymph # 0.8 L (1.5-3.5) 10^3/uL [place] # 0.9 (0.0-1.0) 10^3/uL Eos # 0.0 (0.0-0.7) 10^3/uL Baso # 0.0 (0.0-0.1) 10^3/uL Absolute Nucleated RBC 0.00 x10^3/uL Nucleated RBCs 0.0 /100WBC Sodium 135 (135-145) mmol/L Potassium 3.3 L (3.5-5.0) mmol/L Chloride 101 (101-111) mmol/L Carbon Dioxide 28 (21-32) mmol/L Anion Gap 6.0 (6-13) BUN 12 (6-20) mg/dL Creatinine 0.6 (0.4-1.0) mg/dL Estimated GFR (MDRD) 110 (>89) Glucose 128 H (70-100) mg/dL POC Whole Bld Glucose 122 H (70 - 100) mg/dL Calcium 8.4 L (8.5-10.3) mg/dL Phosphorus 2.2 L (2.5-4.6) mg/dL Magnesium 1.7 (1.7-2.8) mg/dL Total Bilirubin 1.8 H (0.2-1.0) mg/dL AST 18 (10-42) IU/L ALT 16 (10-60) IU/L Alkaline Phosphatase 45 (42-121) IU/L Total Protein 5.7 L (6.7-8.2) g/dL Albumin 2.5 L (3.2-5.5) g/dL Globulin 3.2 (2.1-4.2) g/dL Albumin/Globulin Ratio 0.8 L (1.0-2.2) 03/22/17 03/22/17 03/22/17 Range/Units 23:49 18:51 17:53 WBC 19.8 H (4.8-10.8) x10^3/uL RBC 3.02 L (4.20-5.40) 10^6/uL Hgb 9.0 L (12.0-16.0) g/dL Hct 26.7 L (37.0-47.0) % MCV 88.7 (81.0-99.0) fL MCH 29.8 (27.0-31.0) pg MCHC 33.7 (32.0-36.0) g/dL RDW 13.4 (12.0-15.0) % Plt Count 271 (130-450) 10^3/uL MPV 7.6 L (7.9-10.8) fL Neut # 18.2 H (1.5-6.6) 10^3/uL Lymph # 0.7 L (1.5-3.5) 10^3/uL [place] # 0.9 (0.0-1.0) 10^3/uL Eos # 0.0 (0.0-0.7) 10^3/uL Baso # 0.0 (0.0-0.1) 10^3/uL Absolute Nucleated RBC 0.00 x10^3/uL Nucleated RBCs 0.0 /100WBC Sodium (135-145) mmol/L Potassium (3.5-5.0) mmol/L Chloride (101-111) mmol/L Carbon Dioxide (21-32) mmol/L Anion Gap (6-13) BUN (6-20) mg/dL Creatinine (0.4-1.0) mg/dL Estimated GFR (MDRD) (>89) Glucose (70-100) mg/dL POC Whole Bld Glucose 128 H 141 H (70 - 100) mg/dL Calcium (8.5-10.3) mg/dL Phosphorus (2.5-4.6) mg/dL Magnesium (1.7-2.8) mg/dL Total Bilirubin (0.2-1.0) mg/dL AST (10-42) IU/L ALT (10-60) IU/L Alkaline Phosphatase (42-121) IU/L Total Protein (6.7-8.2) g/dL Albumin (3.2-5.5) g/dL Globulin (2.1-4.2) g/dL Albumin/Globulin Ratio (1.0-2.2) - Imaging Results Radiology Imaging: positive: Discussed with rads (reviewed CT with Rads.) - Current Medications Current Medications: Current Medications Generic Name Dose Route Start Last Admin Trade Name Freq PRN Reason Stop Dose Admin Acetaminophen 650 mg 03/22/17 07:23 03/23/17 13:45 Tylenol PO 650 mg Q4HR PRN Administration Pain 1 to 4 Albuterol/Ipratropium 3 ml 03/22/17 09:29 03/23/17 00:27 Duoneb INH 3 ml RTQID PRN Administration Shortness of Air/Wheezing Alprazolam 0.25 mg 03/22/17 09:28 03/23/17 08:52 Xanax PO 0.25 mg Q4HR PRN Administration Anxiety Bupropion HCl 150 mg 03/22/17 10:00 03/23/17 10:21 Wellbutrin Sr PO Not Given BID BRYANT Famotidine 20 mg 03/22/17 09:00 03/23/17 09:19 Pepcid PO 20 mg DAILY BRYANT Administration Lactated Ringer's 1,000 mls @ 125 mls/hr 03/22/17 08:00 03/23/17 16:18 Lr IV 125 mls/hr .Q8H BRYANT Administration Metronidazole 100 mls @ 100 mls/hr 03/22/17 12:00 03/23/17 12:10 Flagyl 500 Mg/100 Ml IV 100 mls/hr Q6HR BRYANT Administration Piperacillin Sod/Tazobactam 100 mls @ 200 mls/hr 03/22/17 10:00 03/23/17 16:17 Sod 4.5 gm/ Sodium Chloride IV 200 mls/hr Q6H BRYANT Administration Ibuprofen 600 mg 03/22/17 07:23 03/23/17 15:06 Motrin PO 600 mg Q6HR PRN Administration Pain 1 to 4 Morphine Sulfate/Sodium Chloride 0 mg 03/22/17 07:38 03/23/17 16:28 Morphine Animal Ride Manager (Use Animal Ride Manager Order Set) IV 50 mg GREEN ENERGY MARKETING ANALYST PRN Administration PAIN Protocol Nicotine 1 patch 03/22/17 10:00 03/23/17 10:22 Nicoderm TOP Not Given DAILY [facility] Ondansetron HCl 4 mg 03/22/17 07:23 03/23/17 07:54 Zofran Inj IVP 4 mg Q6HR PRN Administration Nausea / Vomiting Sodium Chloride 10 ml 03/22/17 07:23 03/23/17 07:54 Normal Saline Flush 0.9% IVP 10 ml PRN PRN Administration NEEDED PER PROVIDER ORDERS Sodium Chloride 10 ml 03/22/17 14:00 03/23/17 16:20 Normal Saline Flush 0.9% IVP Not Given Q8HR [facility] Impression/Plan - Problem List Problem List: Pt is improving clinicaly. Micro prelim Gm positive no ident or sensitivities. Will continue current antibiotics Labs in the AM.
[2017-03-24] MEDS: IBUPROFEN 600 MG TABLET PO PRN (00:04)
[2017-03-24] MEDS: LACTATED RINGERS 1,000 ML IV SCH ×3 (03:34→22:26)
[2017-03-24] MEDS: PIPERACILLIN/TAZOBACTAM 4.5 GM in SODIUM CHLORIDE 0.9% MINIBAG 100 ML IV SCH ×4 (03:36→22:24)
[2017-03-24] MEDS: ACETAMINOPHEN 325 MG TABLET PO PRN ×2 (04:31→20:25)
[2017-03-24] MEDS: ONDANSETRON 4 MG/2 ML VIAL IVP PRN ×3 (05:00→21:12)
[2017-03-24] MEDS: metroNIDAZOLE 500 MG/100 ML 100 ML IV SCH ×4 (05:44→23:36)
[2017-03-24 06:00] LABS: MAGNESIUM 1.9 mg/dL (1.7-2.8); PHOSPHORUS 2.9 mg/dL (2.5-4.6)
[2017-03-24] MEDS: SODIUM CHLORIDE FLUSH 0.9% 10 ML SYRINGE IVP SCH ×3 (06:03→22:24)
[2017-03-24 07:53] LABS: BASOPHILS % (AUTO) 0.1 %; EOSINOPHILS % (AUTO) 0.2 %; HCT - HEMATOCRIT 22.1 % (37.0-47.0); HGB - HEMOGLOBIN 7.5 g/dL (12.0-16.0); LYMPHOCYTES # (AUTO) 1.4 10^3/uL (1.5-3.5); LYMPHOCYTES % (AUTO) 9.1 %; MEAN CORPUSCULAR HEMOGLOBIN 29.9 pg (27.0-31.0); MEAN CORPUSCULAR HGB CONC 33.8 g/dL (32.0-36.0); MEAN CORPUSCULAR VOLUME 88.5 fL (81.0-99.0); MEAN PLATELET VOLUME 7.8 fL (7.9-10.8); MONOCYTES # (AUTO) 0.9 10^3/uL (0.0-1.0); MONOCYTES % (AUTO) 5.6 %; NEUTROPHILS # (AUTO) 13.4 10^3/uL (1.5-6.6); NUCLEATED RED BLOOD CELLS AUTO 0.1 /100WBC; RED CELL DISTRIBUTION WIDTH 13.5 % (12.0-15.0); UNCORRECTED WHITE BLOOD COUNT 15.8 x10^3/uL; WHITE BLOOD COUNT 15.8 x10^3/uL (4.8-10.8)
[2017-03-24] MEDS: ALPRAZolam 0.25 MG TABLET PO PRN ×2 (07:58→21:12)
[2017-03-24 08:04] LABS: ALBUMIN/GLOBULIN RATIO 0.7 (1.0-2.2); BILIRUBIN,TOTAL 0.6 mg/dL (0.2-1.0); BUN - BLOOD UREA NITROGEN 14 mg/dL (6-20); CALCIUM 7.9 mg/dL (8.5-10.3); CARBON DIOXIDE - CO2 29 mmol/L (21-32); CHLORIDE 103 mmol/L (101-111); CREATININE 0.6 mg/dL (0.4-1.0); GFR - MDRD 110 (>89); GLUCOSE 121 mg/dL (70-100); POTASSIUM 3.6 mmol/L (3.5-5.0); SODIUM 137 mmol/L (135-145); TOTAL PROTEIN 5.2 g/dL (6.7-8.2)
[2017-03-24 08:15] LABS: VBG PH 7.421 (7.31-7.41)
[2017-03-24 08:16] LABS: CALCIUM, IONIZED 1.08 mmol/L (1.15-1.33)
--- NOTE | 2017-03-24 08:16 | PROVIDER PROGRESS NOTE ---
Subjective - General Admit Date: 03/22/17 Procedure Date: 03/22/17 Post Op Days: 2 Procedure Performed: L Scope Drainage of Hematomas/Abcess with CANDIDO Drain Insertion - Review of Systems Wound/Incisions: positive: Dressing dry and intact Drain Type: CANDIDO X2; La General: positive: No symptoms (Pt C/O pain 5/10, utilized 28 mg of Morphine/14 hours. Pt notes rapid onset and rapid loss of pain control.), Fatigue, Other ( Pain 6/10 up in chair) HEENT: positive: No symptoms Pulmonary: positive: No symptoms (need meb neb last night) Cardiovascular: positive: No symptoms Gastrointestinal: positive: Nausea (with narcotic.), Abdominal pain ( Appropriate for surgery. 5/10), Flatus (Passing flatus) Genitourinary: positive: No symptoms Musculoskeletal: positive: No symptoms Skin: positive: No symptoms Psychiatric: positive: Depression (Dissapointed with set back.) Objective - Patient Data Reviewed Vital Signs: Yes Vital Signs: Vital Signs x48h Temp Pulse Pulse Resp BP Pulse Ox 03/24/17 07:45 78 11 L 03/24/17 07:00 76 14 117/47 L 95 03/24/17 06:11 15 03/24/17 06:00 77 13 114/80 94 03/24/17 05:00 74 17 137/80 H 100 03/24/17 04:45 72 18 03/24/17 04:00 37.2 C 78 19 111/73 96 03/24/17 03:00 69 10 L 115/76 96 03/24/17 02:00 76 15 113/69 95 03/24/17 01:00 72 14 113/70 94 Weight: Weight 03/22/17 03/23/17 03/24/17 23:59 23:59 23:59 Weight (kg) 92.986 kg 105 kg 110 kg Intake & Output: Intake and Output Totals x24h 03/22/17 03/23/17 03/24/17 23:59 23:59 23:59 Intake Total 2165 3805 950 Output Total 1583 1516 301 Balance 582 2289 649 - Lab Results Lab Results: 03/24/17 07:45 03/24/17 07:45 Other Lab Results: Lab Results x24hrs 03/24/17 03/24/1717 Range/Units 07:45 07:45 07:44 WBC 15.8 H (4.8-10.8) x10^3/uL RBC 2.50 L (4.20-5.40) 10^6/uL Hgb 7.5 L (12.0-16.0) g/dL Hct 22.1 L (37.0-47.0) % MCV 88.5 (81.0-99.0) fL MCH 29.9 (27.0-31.0) pg MCHC 33.8 (32.0-36.0) g/dL RDW 13.5 (12.0-15.0) % Plt Count 278 (130-450) 10^3/uL MPV 7.8 L (7.9-10.8) fL Neut # 13.4 H (1.5-6.6) 10^3/uL Lymph # 1.4 L (1.5-3.5) 10^3/uL [place] # 0.9 (0.0-1.0) 10^3/uL Eos # 0.0 (0.0-0.7) 10^3/uL Baso # 0.0 (0.0-0.1) 10^3/uL Absolute Nucleated RBC 0.01 x10^3/uL Nucleated RBCs 0.1 /100WBC Sodium 137 (135-145) mmol/L Potassium 3.6 (3.5-5.0) mmol/L Chloride 103 (101-111) mmol/L Carbon Dioxide 29 (21-32) mmol/L Anion Gap 5.0 L (6-13) BUN 14 (6-20) mg/dL Creatinine 0.6 (0.4-1.0) mg/dL Estimated GFR (MDRD) 110 (>89) Glucose 121 H (70-100) mg/dL POC Whole Bld Glucose 115 H (70 - 100) mg/dL Calcium 7.9 L (8.5-10.3) mg/dL Ionized Calcium YES Phosphorus (2.5-4.6) mg/dL Magnesium (1.7-2.8) mg/dL Total Bilirubin 0.6 (0.2-1.0) mg/dL AST 14 (10-42) IU/L ALT 16 (10-60) IU/L Alkaline Phosphatase 46 (42-121) IU/L Total Protein 5.2 L (6.7-8.2) g/dL Albumin 2.2 L (3.2-5.5) g/dL Globulin 3.0 (2.1-4.2) g/dL Albumin/Globulin Ratio 0.7 L (1.0-2.2) 03/24/17 03/24/17 03/23/17 Range/Units : 04:46 23:59 WBC (4.8-10.8) x10^3/uL RBC (4.20-5.40) 10^6/uL Hgb (12.0-16.0) g/dL Hct (37.0-47.0) % MCV (81.0-99.0) fL MCH (27.0-31.0) pg MCHC (32.0-36.0) g/dL RDW (12.0-15.0) % Plt Count (130-450) 10^3/uL MPV (7.9-10.8) fL Neut # (1.5-6.6) 10^3/uL Lymph # (1.5-3.5) 10^3/uL [place] # (0.0-1.0) 10^3/uL Eos # (0.0-0.7) 10^3/uL Baso # (0.0-0.1) 10^3/uL Absolute Nucleated RBC x10^3/uL Nucleated RBCs /100WBC Sodium (135-145) mmol/L Potassium (3.5-5.0) mmol/L Chloride (101-111) mmol/L Carbon Dioxide (21-32) mmol/L Anion Gap (6-13) BUN (6-20) mg/dL Creatinine (0.4-1.0) mg/dL Estimated GFR (MDRD) (>89) Glucose (70-100) mg/dL POC Whole Bld Glucose 108 H 120 H (70 - 100) mg/dL Calcium (8.5-10.3) mg/dL Ionized Calcium Phosphorus 2.9 (2.5-4.6) mg/dL Magnesium 1.9 (1.7-2.8) mg/dL Total Bilirubin (0.2-1.0) mg/dL AST (10-42) IU/L ALT (10-60) IU/L Alkaline Phosphatase (42-121) IU/L Total Protein (6.7-8.2) g/dL Albumin (3.2-5.5) g/dL Globulin (2.1-4.2) g/dL Albumin/Globulin Ratio (1.0-2.2) 03/23/17 03/23/17 Range/Units 17:28 13:34 WBC (4.8-10.8) x10^3/uL RBC (4.20-5.40) 10^6/uL Hgb (12.0-16.0) g/dL Hct (37.0-47.0) % MCV (81.0-99.0) fL MCH (27.0-31.0) pg MCHC (32.0-36.0) g/dL RDW (12.0-15.0) % Plt Count (130-450) 10^3/uL MPV (7.9-10.8) fL Neut # (1.5-6.6) 10^3/uL Lymph # (1.5-3.5) 10^3/uL [place] # (0.0-1.0) 10^3/uL Eos # (0.0-0.7) 10^3/uL Baso # (0.0-0.1) 10^3/uL Absolute Nucleated RBC x10^3/uL Nucleated RBCs /100WBC Sodium (135-145) mmol/L Potassium (3.5-5.0) mmol/L Chloride (101-111) mmol/L Carbon Dioxide (21-32) mmol/L Anion Gap (6-13) BUN (6-20) mg/dL Creatinine (0.4-1.0) mg/dL Estimated GFR (MDRD) (>89) Glucose (70-100) mg/dL POC Whole Bld Glucose 138 H 122 H (70 - 100) mg/dL Calcium (8.5-10.3) mg/dL Ionized Calcium Phosphorus (2.5-4.6) mg/dL Magnesium (1.7-2.8) mg/dL Total Bilirubin (0.2-1.0) mg/dL AST (10-42) IU/L ALT (10-60) IU/L Alkaline Phosphatase (42-121) IU/L Total Protein (6.7-8.2) g/dL Albumin (3.2-5.5) g/dL Globulin (2.1-4.2) g/dL Albumin/Globulin Ratio (1.0-2.2) - Current Medications Current Medications: Current Medications Generic Name Dose Route Start Last Admin Trade Name Freq PRN Reason Stop Dose Admin Acetaminophen 650 mg 03/22/17 07:23 03/24/17 04:31 Tylenol PO 650 mg Q4HR PRN Administration Pain 1 to 4 Albuterol 2.5 mg 03/22/17 09:29 03/24/17 04:45 INH 2.5 mg RTQ4H PRN Administration Wheezing Albuterol/Ipratropium 3 ml 03/22/17 09:29 03/23/17 00:27 Duoneb INH 3 ml RTQID PRN Administration Shortness of Air/Wheezing Alprazolam 0.25 mg 03/22/17 09:28 03/24/17 07:58 Xanax PO 0.25 mg Q4HR PRN Administration Anxiety Bupropion HCl 150 mg 03/22/17 10:00 03/23/17 21:03 Wellbutrin Sr PO Not Given BID BRYANT Famotidine 20 mg 03/22/17 09:00 03/23/17 09:19 Pepcid PO 20 mg DAILY BRYANT Administration Lactated Ringer's 1,000 mls @ 125 mls/hr 03/22/17 08:00 03/24/17 03:34 Lr IV 125 mls/hr .Q8H BRYANT Administration Metronidazole 100 mls @ 100 mls/hr 03/22/17 12:00 03/24/17 05:44 Flagyl 500 Mg/100 Ml IV 100 mls/hr Q6HR BRYANT Administration Piperacillin Sod/Tazobactam 100 mls @ 200 mls/hr 03/22/17 10:00 03/24/17 03:36 Sod 4.5 gm/ Sodium Chloride IV 200 mls/hr Q6H BRYANT Administration Ibuprofen 600 mg 03/22/17 07:23 03/24/17 00:04 Motrin PO 600 mg Q6HR PRN Administration Pain 1 to 4 Morphine Sulfate/Sodium Chloride 0 mg 03/22/17 07:38 03/23/17 16:28 Morphine Needle Polisher (Use Needle Polisher Order Set) IV 50 mg KNIFE CHANGER PRN Administration PAIN Protocol Nicotine 1 patch 03/22/17 10:00 03/23/17 10:22 Nicoderm TOP Not Given DAILY [facility] Ondansetron HCl 4 mg 03/22/17 07:23 03/24/17 05:00 Zofran Inj IVP 4 mg Q6HR PRN Administration Nausea / Vomiting Sodium Chloride 10 ml 03/22/17 07:23 03/23/17 07:54 Normal Saline Flush 0.9% IVP 10 ml PRN PRN Administration NEEDED PER PROVIDER ORDERS Sodium Chloride 10 ml 03/22/17 14:00 03/24/17 06:03 Normal Saline Flush 0.9% IVP Not Given Q8HR [facility] - Physical Exam Wound/Incisions: positive: Dressing dry and intact (Wound vac functioning well.) , Drainage (CANDIDO ,L 30 ml/12 hours, R 10/12 hours) General Appearance: positive: Mild distress (Pt had a emotional break down. recovered, tried to encourage the Pt) Respiratory: positive: Chest non-tender, No respiratory distress, Breath sounds nml. negative: Wheezes, Rales, Rhonchi Cardiovascular: positive: Regular rate & rhythm, No murmur Abdomen: positive: Nml bowel sounds, No distention, Tenderness (right lower quadrent) Back: negative: CVA tenderness (R), CVA tenderness (L) Skin: positive: Color nml, No rash, Warm Extremities: negative: Calf tenderness, Concha's sign/cords Neurologic/Psychiatric: positive: Oriented x3. negative: Mood/affect nml ( depressed with situation) Impression/Plan - Problem List Problem List: 1. S/P drainage of pelvic abscess. WBC down to 15,000 improving will continue antibiotics 2. Anemia 7.5 gms Hgb. Transfuse 2 units RBC 3. Cultures pending, continue with Sonal Serrano. 4. Pain control change to Oxycodone 10 mg 5. VS Tachy cardia resolved, BP normalizing, O2 sat good 6. Asthma stable.
[2017-03-24] MEDS: NICOTINE 14 MG PATCH TOP SCH (08:24)
[2017-03-24] MEDS: buPROPion SR 150 MG TABLET PO SCH ×2 (08:24→19:42)
[2017-03-24] MEDS: oxyCODONE 5 MG TABLET PO PRN ×3 (08:59→21:12)
[2017-03-24] MEDS: FAMOTIDINE 20 MG TABLET PO SCH (10:01)
--- NOTE | 2017-03-24 16:14 | PROVIDER PROGRESS NOTE ---
Assessment/Plan - Problem List (1) Intra-abdominal abscess post-procedure Qualifiers: Encounter type: subsequent encounter Qualified Code(s): T81.4XXD - Infection following a procedure, subsequent encounter; K65.1 - Peritoneal abscess Assessment/Plan: Patient had a hysterectomy and left oopherectomy on 03/17/17 and was discharged home on 04/07 then returned due to increasing abdominopelvic pain and was found to have leukocytosis with CT findings suspicious for abscess. patient was taken to OR and underwent Laprocscopic drainage of pelvic Hematoma/abcess we were consulted for medical management. Patients pain is improved and WBC down to 15.8 from 19.8 Minimal drainage from CANDIDO tube Vamp Wetter is following Plan: COntinue IV abx with IV zosyn and flagyl day 3 Awaiting cultures from abscess to better target antibiotics - so far prelim cx showing gram positive cocci but susceptibilities to follow Transfer to med/surg Remove lerma cath Stop [employer] and convert to PO pain meds Advance diet Monitor WBC (2) Anemia Assessment/Plan: Hb dropped from 10.2 down to 7.5 today Patient did have hematoma along with abscess and with multiple surgical procedures This is likely blood loss anemia Patient also feels very weak Will transfuse 2 units PRBCs (3) Hypokalemia Assessment/Plan: Resolved (4) Hypophosphatemia Assessment/Plan: Resolved (5) HTN (hypertension) Qualifiers: Hypertension type: essential hypertension Qualified Code(s): I10 - Essential (primary) hypertension Assessment/Plan: Patient had periop HTN but BP now stable Not on on any antihypertensives BP elevated likely secondary to pain Monitor (6) Asthma Assessment/Plan: Controlled on duonebs prn in the hospital (7) Tobacco abuse Assessment/Plan: Advised to quit smoking Nicotine patch - Current Meds Current Meds: Current Medications Generic Name Dose Route Start Last Admin Trade Name Freq PRN Reason Stop Dose Admin Acetaminophen 650 mg 03/22/17 07:23 03/24/17 04:31 Tylenol PO 650 mg Q4HR PRN Administration Pain 1 to 4 Albuterol 2.5 mg 03/22/17 09:29 03/24/17 04:45 INH 2.5 mg RTQ4H PRN Administration Wheezing Albuterol/Ipratropium 3 ml 03/22/17 09:29 03/23/17 00:27 Duoneb INH 3 ml RTQID PRN Administration Shortness of Air/Wheezing Alprazolam 0.25 mg 03/22/17 09:28 03/24/17 07:58 Xanax PO 0.25 mg Q4HR PRN Administration Anxiety Bupropion HCl 150 mg 03/22/17 10:00 03/24/17 08:24 Wellbutrin Sr PO Not Given BID BRYANT Famotidine 20 mg 03/22/17 09:00 03/24/17 10:01 Pepcid PO 20 mg DAILY BRYANT Administration Lactated Ringer's 1,000 mls @ 125 mls/hr 03/22/17 08:00 03/24/17 03:34 Lr IV 125 mls/hr .Q8H BRYANT Administration Metronidazole 100 mls @ 100 mls/hr 03/22/17 12:00 03/24/17 11:40 Flagyl 500 Mg/100 Ml IV 100 mls/hr Q6HR BRYANT Administration Piperacillin Sod/Tazobactam 100 mls @ 200 mls/hr 03/22/17 10:00 03/24/17 11:10 Sod 4.5 gm/ Sodium Chloride IV 200 mls/hr Q6H BRYANT Administration Ibuprofen 600 mg 03/22/17 07:23 03/24/17 00:04 Motrin PO 600 mg Q6HR PRN Administration Pain 1 to 4 Nicotine 1 patch 03/22/17 10:00 03/24/17 08:24 Nicoderm TOP Not Given DAILY BRYANT Ondansetron HCl 4 mg 03/22/17 07:23 03/24/17 08:59 Zofran Inj IVP 4 mg Q6HR PRN Administration Nausea / Vomiting Oxycodone HCl 5 mg 03/22/17 07:23 03/24/17 13:59 Roxicodone PO 5 mg Q4HR PRN Administration Pain 5 to 7 Oxycodone HCl 10 mg 03/24/17 08:31 03/24/17 08:59 Roxicodone PO 10 mg Q4HR PRN Administration PAIN Sodium Chloride 10 ml 03/22/17 07:23 03/23/17 07:54 Normal Saline Flush 0.9% IVP 10 ml PRN PRN Administration NEEDED PER PROVIDER ORDERS Sodium Chloride 10 ml 03/22/17 14:00 03/24/17 14:00 Normal Saline Flush 0.9% IVP 10 ml Q8HR BRYANT Administration - Lab Result Lab results reviewed: Yes Fish Bone Diagrams: 03/24/17 07:45 03/24/17 07:45 - Diagnostic Imaging Results Diagnostic Imaging Results: Final report reviewed - Additional Planning Condition/Complexity: Guarded My Orders: My Active Orders 03/24/17 08:10 Transfuse RBCs Leukoreduced [RC] ONCE 03/25/17 05:00 CBC - COMP BLD CT W/AUTO DIFF [HEME] DAILYLAB CMP, RFLX TO IONIZED CA IF [CHEM] DAILYLAB 03/26/17 05:00 CBC - COMP BLD CT W/AUTO DIFF [HEME] DAILYLAB CMP, RFLX TO IONIZED CA IF [CHEM] DAILYLAB 03/27/17 05:00 CBC - COMP BLD CT W/AUTO DIFF [HEME] DAILYLAB CMP, RFLX TO IONIZED CA IF [CHEM] DAILYLAB 03/28/17 05:00 CBC - COMP BLD CT W/AUTO DIFF [HEME] DAILYLAB CMP, RFLX TO IONIZED CA IF [CHEM] DAILYLAB Consult/Specialty: Obstetrics Plan Discussed with:: Patient, Spouse Time Spent: 31-60 minutes Subjective - Subjective Patient Reports: Abdominal Pain (Patient states pain is better controlled than it was yesterday.), Other (She denies any fevers of chills. She slept well last night. Denies any nausea or vomiting.) Nursing Reports: No Complaints Objective Vital Signs: Vital Signs - 24 hr 03/23/17 03/23/17 03/23/17 16:04 17:26 17:59 Temperature 36.9 C Heart Rate Heart Rate [ Brachial] Heart Rate [ 81 78 78 Monitoring electrodes] Respiratory 16 11 L 12 Rate Blood Pressure 125/83 H 124/73 140/95 H [Left Brachial artery] O2 Saturation 96 96 96 03/23/17 03/23/17 03/23/17 18:32 19:00 19:34 Temperature 36.7 C 36.8 C Heart Rate Heart Rate [ Brachial] Heart Rate [ 83 77 Monitoring electrodes] Respiratory 17 15 Rate Blood Pressure 145/79 H [Left Brachial artery] O2 Saturation 97 93 03/23/17 03/23/17 03/23/17 19:35 20:00 21:00 Temperature Heart Rate Heart Rate [ Brachial] Heart Rate [ 81 77 Monitoring electrodes] Respiratory 18 14 12 Rate Blood Pressure 124/82 H 105/60 [Left Brachial artery] O2 Saturation 94 96 03/23/17 03/23/17 03/23/17 22:17 23:00 23:05 Temperature Heart Rate 72 Heart Rate [ Brachial] Heart Rate [ 72 72 Monitoring electrodes] Respiratory 13 13 13 Rate Blood Pressure 99/63 109/94 H [Left Brachial artery] O2 Saturation 94 94 03/24/17 03/24/17 03/24/17 00:00 01:00 02:00 Temperature 36.9 C Heart Rate Heart Rate [ Brachial] Heart Rate [ 72 72 76 Monitoring electrodes] Respiratory 14 14 15 Rate Blood Pressure 112/76 113/70 113/69 [Left Brachial artery] O2 Saturation 95 94 95 03/24/17 03/24/17 03/24/17 03:00 04:00 04:45 Temperature 37.2 C Heart Rate 72 Heart Rate [ Brachial] Heart Rate [ 69 78 Monitoring electrodes] Respiratory 10 L 19 18 Rate Blood Pressure 115/76 111/73 [Left Brachial artery] O2 Saturation 96 96 03/24/17 03/24/17 03/24/17 05:00 06:00 06:11 Temperature Heart Rate Heart Rate [ Brachial] Heart Rate [ 74 77 Monitoring electrodes] Respiratory 17 13 15 Rate Blood Pressure 137/80 H 114/80 [Left Brachial artery] O2 Saturation 100 94 03/24/17 03/24/17 03/24/17 07:00 07:45 09:00 Temperature 36.9 C Heart Rate 78 Heart Rate [ Brachial] Heart Rate [ 76 80 Monitoring electrodes] Respiratory 14 11 L 14 Rate Blood Pressure 117/47 L 156/91 H [Left Brachial artery] O2 Saturation 95 97 03/24/17 03/24/17 03/24/17 10:00 13:00 14:52 Temperature 36.9 C Heart Rate Heart Rate [ Brachial] Heart Rate [ 88 93 Monitoring electrodes] Respiratory 16 15 16 Rate Blood Pressure 151/75 H 129/76 [Left Brachial artery] O2 Saturation 93 94 03/24/17 15:48 Temperature 36.8 C Heart Rate Heart Rate [ 90 Brachial] Heart Rate [ Monitoring electrodes] Respiratory 16 Rate Blood Pressure 148/89 H [Left Brachial artery] O2 Saturation 96 Oxygen O2 Source Room air I&O (Last 24 Hrs): Intake and Output Totals x24h 03/22/17 03/23/1703/24/17 23:59 23:59 23:59 Intake Total 2166 4245 2225 Output Total 1583 1516 751 Balance 582 2289 1474 General: Alert, Oriented x3, Mild distress (abd pain), Other (drowsy this am) HEENT: Atraumatic, PERRLA, EOMI, Other (dry mucus membranes) Neck: Supple, No JVD, No thyromegaly, +2 carotid pulse wo bruit, No LAD Lymphatic: no adenopathy Neuro: Alert, Non Focal, CN 2-12 Grossly Intact, Oriented Times 3 Cardiovascular: Regular rate, Normal S1, Normal S2, No murmurs Respiratory: Chest non-tender, No respiratory distress, Breath sounds nml Abdomen: Normal bowel sounds, Soft, No hepatospenomegaly, Other (diffuse tenderness, no peritoneal signs) Extremities: No clubbing, No cyanosis, No edema, Normal pulses Skin: No rashes, No breakdown, No significant lesion - Results Results: Laboratory Results WBC 15.8 x10^3/uL (4.8-10.8) H 03/24/17 07:45 RBC 2.50 10^6/uL (4.20-5.40) L 03/24/17 07:45 Hgb 7.5 g/dL (12.0-16.0) L 03/24/17 07:45 Hct 22.1 % (37.0-47.0) L 03/24/17 07:45 MCV 88.5 fL (81.0-99.0) 03/24/17 07:45 MCH 29.9 pg (27.0-31.0) 03/24/17 07:45 MCHC 33.8 g/dL (32.0-36.0) 03/24/17 07:45 RDW 13.5 % (12.0-15.0) 03/24/17 07:45 Plt Count 278 10^3/uL (130-450) 03/24/17 07:45 MPV 7.8 fL (7.9-10.8) L 03/24/17 07:45 Neut # 13.4 10^3/uL (1.5-6.6) H 03/24/17 07:45 Lymph # 1.4 10^3/uL (1.5-3.5) L 03/24/17 07:45 Ogle # 0.9 10^3/uL (0.0-1.0) 03/24/17 07:45 Eos # 0.0 10^3/uL (0.0-0.7) 03/24/17 07:45 Baso # 0.0 10^3/uL (0.0-0.1) 03/24/17 07:45 Absolute Nucleated RBC 0.01 x10^3/uL 03/24/17 07:45 Nucleated RBCs 0.1 /100WBC 03/24/17 07:45 VBG pH 7.421 (7.31-7.41) H 03/24/17 07:45 Ionized Calcium 1.08 mmol/L (1.15-1.33) L 03/24/17 07:45 Sodium 137 mmol/L (135-145) 03/24/17 07:45 Potassium 3.6 mmol/L (3.5-5.0) 03/24/17 07:45 Chloride 103 mmol/L (101-111) 03/24/17 07:45 Carbon Dioxide 29 mmol/L (21-32) 03/24/17 07:45 Anion Gap 5.0 (6-13) L 03/24/17 07:45 BUN 14 mg/dL (6-20) 03/24/17 07:45 Creatinine 0.6 mg/dL (0.4-1.0) 03/24/17 07:45 Estimated GFR (MDRD) 110 (>89) 03/24/17 07:45 Glucose 121 mg/dL (70-100) H 03/24/17 07:45 POC Whole Bld Glucose 115 mg/dL (70 - 100) H 03/24/17 07:44 Lactic Acid 0.9 mmol/L (0.5-2.2) 03/21/17 22:26 Calcium 7.9 mg/dL (8.5-10.3) L 03/24/17 07:45 Ionized Calcium YES 03/24/17 07:45 Phosphorus 2.9 mg/dL (2.5-4.6) 03/24/17 04:46 Magnesium 1.9 mg/dL (1.7-2.8) 03/24/17 04:46 Total Bilirubin 0.6 mg/dL (0.2-1.0) 03/24/17 07:45 AST 14 IU/L (10-42) 03/24/17 07:45 ALT 16 IU/L (10-60) 03/24/17 07:45 Alkaline Phosphatase 46 IU/L (42-121) 03/24/17 07:45 Total Protein 5.2 g/dL (6.7-8.2) L 03/24/17 07:45 Albumin 2.2 g/dL (3.2-5.5) L 03/24/17 07:45 Globulin 3.0 g/dL (2.1-4.2) 03/24/17 07:45 Albumin/Globulin Ratio 0.7 (1.0-2.2) L 03/24/17 07:45 Lipase < 10 U/L (22-51) L 03/21/17 22:26 Ur Specific [place] 1.020 (1.002-1.030) 03/21/17 23:18 Urine HCG, Qual NEGATIVE 03/21/17 23:18 Blood Type O POSITIVE 03/22/17 05:36 Antibody Screen NEGATIVE 03/22/17 05:36 Crossmatch IS Only See Detail 03/22/17 05:36 - Procedures Procedures: Procedures APPLICATION OF SPLINT (01/13/13) CARPAL TUNNEL RELEASE (04/06/13) EXTRACTION OF ENDOMETRIUM, ENDO (02/16/17) RELEASE GREATER OMENTUM, PERCUTANEOUS ENDOSCOPIC APPROACH (02/16/17)
--- NOTE | 2017-03-24 17:14 | PROVIDER PROGRESS NOTE ---
Subjective - General Admit Date: 03/22/17 Procedure Date: 03/22/17 Post Op Days: 2 Procedure Performed: L Scope Drainage of Hematomas/Abcess with CANDIDO Drain Insertion - Review of Systems Wound/Incisions: positive: Dressing dry and intact (Wound vac functioning well.) , Drainage (CANDIDO ,L 30 ml/12 hours, R 10/12 hours) Drain Type: CANDIDO X2; La General: positive: No symptoms (Pt C/O pain 5/10, changed to oxycodone. transfusing right now.), Fatigue, Other (Pain 6/10 up in chair) HEENT: positive: No symptoms Pulmonary: positive: No symptoms (need meb neb last night) Cardiovascular: positive: No symptoms Gastrointestinal: positive: Nausea (with narcotic.), Abdominal pain ( Appropriate for surgery. 11/25), Flatus (Passing flatus) Genitourinary: positive: No symptoms Musculoskeletal: positive: No symptoms Skin: positive: No symptoms Psychiatric: positive: Depression (Dissapointed with set back.) Objective - Patient Data Reviewed Vital Signs: Yes Vital Signs: Vital Signs x48h Temp Pulse Pulse Resp BP Pulse Ox 03/24/17 15:48 36.8 C 90 16 148/89 H 96 03/24/17 14:52 36.9 C 93 16 129/76 94 03/24/17 13:00 88 15 151/75 H 93 03/24/17 10:00 16 Weight: Weight 03/22/17 03/23/17 03/24/17 23:59 23:59 23:59 Weight (kg) 92.986 kg 105 kg 110 kg Intake & Output: Intake and Output Totals x24h 03/22/17 03/23/17 03/24/17 23:59 23:59 23:59 Intake Total 2165 3805 2225 Output Total 1583 1516 751 Balance 582 2289 1474 - Lab Results Lab Results: 03/24/17 07:45 03/24/17 07:45 Other Lab Results: Lab Results x24hrs 03/24/17 03/24/17 03/24/17 Range/Units 07:45 07:45 07:45 WBC 15.8 H (4.8-10.8) x10^3/uL RBC 2.50 L (4.20-5.40) 10^6/uL Hgb 7.5 L (12.0-16.0) g/dL Hct 22.1 L (37.0-47.0) % MCV 88.5 (81.0-99.0) fL MCH 29.9 (27.0-31.0) pg MCHC 33.8 (32.0-36.0) g/dL RDW 13.5 (12.0-15.0) % Plt Count 278 (130-450) 10^3/uL MPV 7.8 L (7.9-10.8) fL Neut # 13.4 H (1.5-6.6) 10^3/uL Lymph # 1.4 L (1.5-3.5) 10^3/uL [place] # 0.9 (0.0-1.0) 10^3/uL Eos # 0.0 (0.0-0.7) 10^3/uL Baso # 0.0 (0.0-0.1) 10^3/uL Absolute Nucleated RBC 0.01 x10^3/uL Nucleated RBCs 0.1 /100WBC VBG pH 7.421 H (7.31-7.41) Ionized Calcium 1.08 L YES (1.15-1.33) mmol/L Sodium 137 (135-145) mmol/L Potassium 3.6 (3.5-5.0) mmol/L Chloride 103 (101-111) mmol/L Carbon Dioxide 29 (21-32) mmol/L Anion Gap 5.0 L (6-13) BUN 14 (6-20) mg/dL Creatinine 0.6 (0.4-1.0) mg/dL Estimated GFR (MDRD) 110 (>89) Glucose 121 H (70-100) mg/dL POC Whole Bld Glucose (70 - 100) mg/dL Calcium 7.9 L (8.5-10.3) mg/dL Phosphorus (2.5-4.6) mg/dL Magnesium (1.7-2.8) mg/dL Total Bilirubin 0.6 (0.2-1.0) mg/dL AST 14 (10-42) IU/L ALT 16 (10-60) IU/L Alkaline Phosphatase 46 (42-121) IU/L Total Protein 5.2 L (6.7-8.2) g/dL Albumin 2.2 L (3.2-5.5) g/dL Globulin 3.0 (2.1-4.2) g/dL Albumin/Globulin Ratio 0.7 L (1.0-2.2) Blood Type Antibody Screen Crossmatch IS Only 03/24/17 03/24/17 03/24/17 Range/Units 07:44 06:17 04:46 WBC (4.8-10.8) x10^3/uL RBC (4.20-5.40) 10^6/uL Hgb (12.0-16.0) g/dL Hct (37.0-47.0) % MCV (81.0-99.0) fL MCH (27.0-31.0) pg MCHC (32.0-36.0) g/dL RDW (12.0-15.0) % Plt Count (130-450) 10^3/uL MPV (7.9-10.8) fL Neut # (1.5-6.6) 10^3/uL Lymph # (1.5-3.5) 10^3/uL [place] # (0.0-1.0) 10^3/uL Eos # (0.0-0.7) 10^3/uL Baso # (0.0-0.1) 10^3/uL Absolute Nucleated RBC x10^3/uL Nucleated RBCs /100WBC VBG pH (7.31-7.41) Ionized Calcium (1.15-1.33) mmol/L Sodium (135-145) mmol/L Potassium (3.5-5.0) mmol/L Chloride (101-111) mmol/L Carbon Dioxide (21-32) mmol/L Anion Gap (6-13) BUN (6-20) mg/dL Creatinine (0.4-1.0) mg/dL Estimated GFR (MDRD) (>89) Glucose (70-100) mg/dL POC Whole Bld Glucose 115 H 108 H (70 - 100) mg/dL Calcium (8.5-10.3) mg/dL Phosphorus 2.9 (2.5-4.6) mg/dL Magnesium 1.9 (1.7-2.8) mg/dL Total Bilirubin (0.2-1.0) mg/dL AST (10-42) IU/L ALT (10-60) IU/L Alkaline Phosphatase (42-121) IU/L Total Protein (6.7-8.2) g/dL Albumin (3.2-5.5) g/dL Globulin (2.1-4.2) g/dL Albumin/Globulin Ratio (1.0-2.2) Blood Type Antibody Screen Crossmatch IS Only 03/23/17 03/23/17 03/22/17 Range/Units 23:59 17:28 05:36 WBC (4.8-10.8) x10^3/uL RBC (4.20-5.40) 10^6/uL Hgb (12.0-16.0) g/dL Hct (37.0-47.0) % MCV (81.0-99.0) fL MCH (27.0-31.0) pg MCHC (32.0-36.0) g/dL RDW (12.0-15.0) % Plt Count (130-450) 10^3/uL MPV (7.9-10.8) fL Neut # (1.5-6.6) 10^3/uL Lymph # (1.5-3.5) 10^3/uL [place] # (0.0-1.0) 10^3/uL Eos # (0.0-0.7) 10^3/uL Baso # (0.0-0.1) 10^3/uL Absolute Nucleated RBC x10^3/uL Nucleated RBCs /100WBC VBG pH (7.31-7.41) Ionized Calcium (1.15-1.33) mmol/L Sodium (135-145) mmol/L Potassium (3.5-5.0) mmol/L Chloride (101-111) mmol/L Carbon Dioxide (21-32) mmol/L Anion Gap (6-13) BUN (6-20) mg/dL Creatinine (0.4-1.0) mg/dL Estimated GFR (MDRD) (>89) Glucose (70-100) mg/dL POC Whole Bld Glucose 120 H 138 H (70 - 100) mg/dL Calcium (8.5-10.3) mg/dL Phosphorus (2.5-4.6) mg/dL Magnesium (1.7-2.8) mg/dL Total Bilirubin (0.2-1.0) mg/dL AST (10-42) IU/L ALT (10-60) IU/L Alkaline Phosphatase (42-121) IU/L Total Protein (6.7-8.2) g/dL Albumin (3.2-5.5) g/dL Globulin (2.1-4.2) g/dL Albumin/Globulin Ratio (1.0-2.2) Blood Type O POSITIVE Antibody Screen NEGATIVE Crossmatch IS Only See Detail - Current Medications Current Medications: Current Medications Generic Name Dose Route Start Last Admin Trade Name Freq PRN Reason Stop Dose Admin Acetaminophen 650 mg 03/22/17 07:23 03/24/17 04:31 Tylenol PO 650 mg Q4HR PRN Administration Pain 1 to 4 Albuterol 2.5 mg 03/22/17 09:29 03/24/17 04:45 INH 2.5 mg RTQ4H PRN Administration Wheezing Albuterol/Ipratropium 3 ml 03/22/17 09:29 03/23/17 00:27 Duoneb INH 3 ml RTQID PRN Administration Shortness of Air/Wheezing Alprazolam 0.25 mg 03/22/17 09:28 03/24/17 07:58 Xanax PO 0.25 mg Q4HR PRN Administration Anxiety Bupropion HCl 150 mg 03/22/17 10:00 03/24/17 08:24 Wellbutrin Sr PO Not Given BID BRYANT Famotidine 20 mg 03/22/17 09:00 03/24/17 10:01 Pepcid PO 20 mg DAILY BRYANT Administration Lactated Ringer's 1,000 mls @ 125 mls/hr 03/22/17 08:00 03/24/17 03:34 Lr IV 125 mls/hr .Q8H BRYANT Administration Metronidazole 100 mls @ 100 mls/hr 03/22/17 12:00 03/24/17 11:40 Flagyl 500 Mg/100 Ml IV 100 mls/hr Q6HR BRYANT Administration Piperacillin Sod/Tazobactam 100 mls @ 200 mls/hr 03/22/17 10:00 03/24/17 11:10 Sod 4.5 gm/ Sodium Chloride IV 200 mls/hr Q6H BRYANT Administration Ibuprofen 600 mg 03/22/17 07:23 03/24/17 00:04 Motrin PO 600 mg Q6HR PRN Administration Pain 1 to 4 Nicotine 1 patch 03/22/17 10:00 03/24/17 08:24 Nicoderm TOP Not Given DAILY BRYANT Ondansetron HCl 4 mg 03/22/17 07:23 03/24/17 08:59 Zofran Inj IVP 4 mg Q6HR PRN Administration Nausea / Vomiting Oxycodone HCl 5 mg 03/22/17 07:23 03/24/17 13:59 Roxicodone PO 5 mg Q4HR PRN Administration Pain 5 to 7 Oxycodone HCl 10 mg 03/24/17 08:31 03/24/17 08:59 Roxicodone PO 10 mg Q4HR PRN Administration PAIN Sodium Chloride 10 ml 03/22/17 07:23 03/23/17 07:54 Normal Saline Flush 0.9% IVP 10 ml PRN PRN Administration NEEDED PER PROVIDER ORDERS Sodium Chloride 10 ml 03/22/17 14:00 03/24/17 14:00 Normal Saline Flush 0.9% IVP 10 ml Q8HR BRYANT Administration Impression/Plan - Problem List Problem List: CANDIDO out put decreasing will remove in the AM. Transfusing to rectify the anemia. bowel function returning.
[2017-03-24] MEDS: IPRATROPIUM/ALBUTEROL 3 ML NEB INH PRN (20:40)
[2017-03-24] MEDS: methylPREDNISolone SUCCINATE 125 MG/2 ML VIAL IVP SCH ×2 (20:58→22:37)
[2017-03-25] MEDS: oxyCODONE 5 MG TABLET PO PRN ×4 (02:38→22:11)
[2017-03-25] MEDS: PIPERACILLIN/TAZOBACTAM 4.5 GM in SODIUM CHLORIDE 0.9% MINIBAG 100 ML IV SCH ×2 (04:02→10:59)
[2017-03-25] MEDS: IBUPROFEN 600 MG TABLET PO PRN (04:14)
[2017-03-25] MEDS: IPRATROPIUM/ALBUTEROL 3 ML NEB INH PRN ×2 (04:35→23:05)
[2017-03-25] MEDS: methylPREDNISolone SUCCINATE 125 MG/2 ML VIAL IVP SCH ×2 (05:40→13:12)
[2017-03-25] MEDS: metroNIDAZOLE 500 MG/100 ML 100 ML IV SCH (05:47)
[2017-03-25 06:00] LABS: BASOPHILS % (AUTO) 0.3 %; EOSINOPHILS % (AUTO) 0.4 %; HCT - HEMATOCRIT 31.2 % (37.0-47.0); HGB - HEMOGLOBIN 10.4 g/dL (12.0-16.0); LYMPHOCYTES % (AUTO) 12.2 %; MEAN CORPUSCULAR HEMOGLOBIN 29.6 pg (27.0-31.0); MEAN CORPUSCULAR HGB CONC 33.4 g/dL (32.0-36.0); MEAN CORPUSCULAR VOLUME 88.7 fL (81.0-99.0); MEAN PLATELET VOLUME 8.1 fL (7.9-10.8); NEUTROPHILS % (AUTO) 78.1 %; RED BLOOD COUNT 3.51 10^6/uL (4.20-5.40); RED CELL DISTRIBUTION WIDTH 13.6 % (12.0-15.0); UNCORRECTED WHITE BLOOD COUNT 13.7 x10^3/uL; WHITE BLOOD COUNT 13.7 x10^3/uL (4.8-10.8)
[2017-03-25 06:03] LABS: MAGNESIUM 1.6 mg/dL (1.7-2.8); PHOSPHORUS 2.9 mg/dL (2.5-4.6)
[2017-03-25 06:04] LABS: ALBUMIN/GLOBULIN RATIO 0.8 (1.0-2.2); BILIRUBIN,TOTAL 0.9 mg/dL (0.2-1.0); BUN - BLOOD UREA NITROGEN 8 mg/dL (6-20); CALCIUM 7.9 mg/dL (8.5-10.3); CARBON DIOXIDE - CO2 27 mmol/L (21-32); CHLORIDE 102 mmol/L (101-111); CREATININE 0.5 mg/dL (0.4-1.0); GFR - MDRD 135 (>89); GLUCOSE 124 mg/dL (70-100); POTASSIUM 3.3 mmol/L (3.5-5.0); SODIUM 137 mmol/L (135-145); TOTAL PROTEIN 5.9 g/dL (6.7-8.2)
[2017-03-25 06:16] LABS: CALCIUM, IONIZED 1.08 mmol/L (1.15-1.33); VBG PH 7.417 (7.31-7.41)
[2017-03-25 06:53] LABS: BAND NEUTROPHILS % (MANUAL) 7 %; LYMPHOCYTES % (MANUAL) 11 %; NEUTROPHILS % (MANUAL) 69 %; NP AUTO DIFFERENTIAL? YES; NP MAN DIFFERENTIAL? NO; PLATELET ESTIMATE, MANUAL NORMAL (130-450,000) (NORMAL); TOTAL CELLS COUNTED 100
[2017-03-25] MEDS: SODIUM CHLORIDE FLUSH 0.9% 10 ML SYRINGE IVP SCH ×3 (06:53→19:58)
[2017-03-25] MEDS: LACTATED RINGERS 1,000 ML IV SCH (07:00)
[2017-03-25] MEDS: ACETAMINOPHEN 325 MG TABLET PO PRN (07:21)
[2017-03-25] MEDS ORDERED: POTASSIUM CHLORIDE 20 MEQ TABLET PO SCH (08:00)
[2017-03-25] MEDS ORDERED: CALCIUM GLUCONATE 1,000 MG in SODIUM CHLORIDE 0.9% 50 ML IV SCH (08:00)
[2017-03-25] MEDS: NEUTRA-PHOS 250 MG TABLET PO SCH ×3 (08:12→17:13)
[2017-03-25] MEDS: FAMOTIDINE 20 MG TABLET PO SCH (08:12)
--- NOTE | 2017-03-25 09:00 | PROVIDER PROGRESS NOTE ---
Subjective - General Admit Date: 03/22/17 Procedure Date: 03/22/17 Post Op Days: 3 Procedure Performed: L Scope Drainage of Hematomas/Abcess with CANDIDO Drain Insertion - Review of Systems Wound/Incisions: positive: Dressing dry and intact (Wound vac functioning well.) , Drainage (CANDIDO ,L 30 ml/12 hours, R 10/12 hours) Drain Type: CANDIDO X2; La General: positive: No symptoms (Pt was doing well until yesterday evening. developed lower abdominal pain with motion. ptsi still having good bowel and bladder function), Fatigue, Other (Pain 12/26 up in chair) HEENT: positive: No symptoms Pulmonary: positive: No symptoms (need meb neb last night) Cardiovascular: positive: No symptoms Gastrointestinal: positive: Abdominal pain (Appropriate for surgery. 11/25), Flatus (Passing flatus) Genitourinary: positive: No symptoms Musculoskeletal: positive: No symptoms Skin: positive: No symptoms Psychiatric: positive: Depression (Dissapointed with set back.) Objective - Patient Data Reviewed Vital Signs: Yes Vital Signs: Vital Signs x48h Temp Pulse Pulse Resp BP Pulse Ox 03/25/17 07:37 36.9 C 86 18 144/92 H 94 03/25/17 04:35 90 18 03/25/17 04:22 37.0 C 87 18 149/93 H 94 Weight: Weight 03/23/17 03/24/17 03/25/17 23:59 23:59 23:59 Weight (kg) 105 kg 110 kg 106 kg Intake & Output: Intake and Output Totals x24h 03/23/17 03/24/17 03/25/17 23:59 23:59 23:59 Intake Total 3805 3270 1888 Output Total 1516 806 415 Balance 2289 2464 1473 - Lab Results Lab Results: 03/25/17 05:29 03/25/17 05:29 Other Lab Results: Lab Results x24hrs 03/25/17 03/25/17 03/25/17 Range/Units 05:29 05:29 05:29 WBC 13.7 H (4.8-10.8) x10^3/uL RBC 3.51 L (4.20-5.40) 10^6/uL Hgb 10.4 L (12.0-16.0) g/dL Hct 31.2 L (37.0-47.0) % MCV 88.7 (81.0-99.0) fL MCH 29.6 (27.0-31.0) pg MCHC 33.4 (32.0-36.0) g/dL RDW 13.6 (12.0-15.0) % Plt Count 332 (130-450) 10^3/uL MPV 8.1 (7.9-10.8) fL Neut # Not Reportable Lymph # Not Reportable [place] # Not Reportable Eos # Not Reportable Baso # Not Reportable Absolute Nucleated RBC Not Reportable Total Counted 100 Band Neuts % (Manual) 7 (0 - 10) % Neutrophils # (Manual) 10.4 H (1.5-6.6) 10^3/uL Lymphocytes # (Manual) 1.5 (1.5-3.5) 10^3/uL Monocytes # (Manual) 1.8 H (0.0-1.0) 10^3/uL Nucleated RBCs Not Reportable Differential Comment MANUAL DIFFERENTIAL Platelet Estimate NORMAL (130-450,000) (NORMAL) RBC Morph Micro Appear NORMAL APPEARANCE (NORMAL) VBG pH 7.417 H (7.31-7.41) Ionized Calcium 1.08 L YES (1.15-1.33) mmol/L Sodium 137 (135-145) mmol/L Potassium 3.3 L (3.5-5.0) mmol/L Chloride 102 (101-111) mmol/L Carbon Dioxide 27 (21-32) mmol/L Anion Gap 8.0 (6-13) BUN 8 (6-20) mg/dL Creatinine 0.5 (0.4-1.0) mg/dL Estimated GFR (MDRD) 135 (>89) Glucose 124 H (70-100) mg/dL Calcium 7.9 L (8.5-10.3) mg/dL Phosphorus (2.5-4.6) mg/dL Magnesium (1.7-2.8) mg/dL Total Bilirubin 0.9 (0.2-1.0) mg/dL AST 16 (10-42) IU/L ALT 15 (10-60) IU/L Alkaline Phosphatase 61 (42-121) IU/L Total Protein 5.9 L (6.7-8.2) g/dL Albumin 2.6 L (3.2-5.5) g/dL Globulin 3.3 (2.1-4.2) g/dL Albumin/Globulin Ratio 0.8 L (1.0-2.2) Blood Type Antibody Screen Crossmatch IS Only 03/25/17 03/22/17 Range/Units 05:29 05:36 WBC (4.8-10.8) x10^3/uL RBC (4.20-5.40) 10^6/uL Hgb (12.0-16.0) g/dL Hct (37.0-47.0) % MCV (81.0-99.0) fL MCH (27.0-31.0) pg MCHC (32.0-36.0) g/dL RDW (12.0-15.0) % Plt Count (130-450) 10^3/uL MPV (7.9-10.8) fL Neut # Lymph # [place] # Eos # Baso # Absolute Nucleated RBC Total Counted Band Neuts % (Manual) (0 - 10) % Neutrophils # (Manual) (1.5-6.6) 10^3/uL Lymphocytes # (Manual) (1.5-3.5) 10^3/uL Monocytes # (Manual) (0.0-1.0) 10^3/uL Nucleated RBCs Differential Comment Platelet Estimate (NORMAL) RBC Morph Micro Appear (NORMAL) VBG pH (7.31-7.41) Ionized Calcium (1.15-1.33) mmol/L Sodium (135-145) mmol/L Potassium (3.5-5.0) mmol/L Chloride (101-111) mmol/L Carbon Dioxide (21-32) mmol/L Anion Gap (6-13) BUN (6-20) mg/dL Creatinine (0.4-1.0) mg/dL Estimated GFR (MDRD) (>89) Glucose (70-100) mg/dL Calcium (8.5-10.3) mg/dL Phosphorus 2.9 (2.5-4.6) mg/dL Magnesium 1.6 L (1.7-2.8) mg/dL Total Bilirubin (0.2-1.0) mg/dL AST (10-42) IU/L ALT (10-60) IU/L Alkaline Phosphatase (42-121) IU/L Total Protein (6.7-8.2) g/dL Albumin (3.2-5.5) g/dL Globulin (2.1-4.2) g/dL Albumin/Globulin Ratio (1.0-2.2) Blood Type O POSITIVE Antibody Screen NEGATIVE Crossmatch IS Only See Detail - Current Medications Current Medications: Current Medications Generic Name Dose Route Start Last Admin Trade Name Freq PRN Reason Stop Dose Admin Acetaminophen 650 mg 03/22/17 07:23 03/25/17 07:21 Tylenol PO 650 mg Q4HR PRN Administration Pain 1 to 4 Albuterol 2.5 mg 03/22/17 09:29 03/24/17 04:45 INH 2.5 mg RTQ4H PRN Administration Wheezing Albuterol/Ipratropium 3 ml 03/22/17 09:29 03/25/17 04:35 Duoneb INH 3 ml RTQID PRN Administration Shortness of Air/Wheezing Alprazolam 0.25 mg 03/22/17 09:28 03/24/17 21:12 Xanax PO 0.25 mg Q4HR PRN Administration Anxiety Famotidine 20 mg 03/22/17 09:00 03/25/17 08:12 Pepcid PO 20 mg DAILY BRYANT Administration Metronidazole 100 mls @ 100 mls/hr 03/22/17 12:00 03/25/17 05:47 Flagyl 500 Mg/100 Ml IV 100 mls/hr Q6HR BRYANT Administration Piperacillin Sod/Tazobactam 100 mls @ 200 mls/hr 03/22/17 10:00 03/25/17 04:02 Sod 4.5 gm/ Sodium Chloride IV 200 mls/hr Q6H BRYANT Administration Calcium Gluconate 1,000 mg/ 60 mls @ 240 mls/hr 03/25/17 08:00 03/25/17 08:13 Sodium Chloride IV 03/25/17 09:00 240 mls/hr ONCE BRYANT Administration Ibuprofen 600 mg 03/22/17 07:23 03/25/17 04:14 Motrin PO 600 mg Q6HR PRN Administration Pain 1 to 4 Methylprednisolone Sodium Succinate 125 mg 03/24/17 22:00 03/25/17 05:40 Solu-Medrol (125mg Vial) IVP 03/25/17 14:01 Not Given TID BRYANT Nicotine 1 patch 03/22/17 10:00 03/24/17 08:24 Nicoderm TOP Not Given DAILY BRYANT Ondansetron HCl 4 mg 03/22/17 07:23 03/24/17 21:12 Zofran Inj IVP 4 mg Q6HR PRN Administration Nausea / Vomiting Oxycodone HCl 5 mg 03/22/17 07:23 03/24/17 13:59 Roxicodone PO 5 mg Q4HR PRN Administration Pain 5 to 7 Oxycodone HCl 10 mg 03/24/17 08:31 03/25/17 07:21 Roxicodone PO 10 mg Q4HR PRN Administration PAIN Potassium Chloride 20 meq 03/25/17 08:00 03/25/17 08:12 K-Dur PO 03/25/17 09:00 20 meq ONCE BRYANT Administration Sodium Chloride 10 ml 03/22/17 07:23 03/23/17 07:54 Normal Saline Flush 0.9% IVP 10 ml PRN PRN Administration NEEDED PER PROVIDER ORDERS Sodium Chloride 10 ml 03/22/17 14:00 03/25/17 06:53 Normal Saline Flush 0.9% IVP 10 ml Q8HR BRYANT Administration Sodium Phosphate 250 mg 03/25/17 08:00 03/25/17 08:12 K-Phos Neutral PO 250 mg TIDWM BRYANT Administration - Physical Exam Wound/Incisions: positive: Dressing dry and intact. negative: Drainage General Appearance: positive: Mild distress (Pt C/O bilateral pelvic pain), Anxious Respiratory: positive: Chest non-tender, No respiratory distress, Breath sounds nml. negative: Wheezes Cardiovascular: positive: Regular rate & rhythm, No murmur Abdomen: positive: Nml bowel sounds, Tenderness (bilateral lower quadrents). negative: Guarding, Rebound Neurologic/Psychiatric: positive: Oriented x3 Impression/Plan - Problem List Problem List: 1. S/P Laproscopic drainage of pelvic hematomas. 2. Anemia responding to Transfusion. 3. Pain control. change to Toridol. 4. Hypokaliema oral replacement 5. Await cultures to direct antibiotic therapy.
[2017-03-25] MEDS: KETOROLAC 30 MG/ML VIAL IVP PRN ×3 (09:15→22:11)
[2017-03-25] MEDS: NICOTINE 14 MG PATCH TOP SCH (10:51)
[2017-03-25] MEDS: levoFLOXacin 250 MG TABLET PO SCH (11:58)
[2017-03-25] MEDS ORDERED: metroNIDAZOLE 250 MG TABLET PO SCH (12:00)
--- NOTE | 2017-03-25 12:54 | PROVIDER PROGRESS NOTE ---
Assessment/Plan - Problem List (1) Intra-abdominal abscess post-procedure Qualifiers: Encounter type: subsequent encounter Qualified Code(s): T81.4XXD - Infection following a procedure, subsequent encounter; K65.1 - Peritoneal abscess Assessment/Plan: Patient had a hysterectomy and left oopherectomy on 03/17/17 and was discharged home on 04/07 then returned due to increasing abdominopelvic pain and was found to have leukocytosis with CT findings suspicious for abscess. patient was taken to OR and underwent Laprocscopic drainage of pelvic Hematoma/abcess we were consulted for medical management. Patients pain had improved but worse this morning but WBC continues to come down to from 19.8 to 13.7 today Minimal drainage from CANDIDO tube [employer] is following Peritoneal fluid culture is growing strep sanguis which is susceptible to levaquin will discontinue IV zosyn and flagyl and start PO flagyl Continue to monitor closely VSS (2) Anemia Assessment/Plan: Hb dropped from 10.2 down to 7.5 yesterday Patient did have hematoma along with abscess and with multiple surgical procedures This is likely blood loss anemia Patient transfused 2 units of PRBCs Hb improved to 10.4 this am Monitor (3) Hypokalemia Assessment/Plan: K 3.3 today Replace (4) Hypocalcemia Assessment/Plan: Replace Ca Monitor (5) HTN (hypertension) Qualifiers: Hypertension type: essential hypertension Qualified Code(s): I10 - Essential (primary) hypertension Assessment/Plan: Patient had periop HTN but BP now stable Not on on any antihypertensives at home BP continues to be elevated likely secondary to pain Patient will need outpatient workup for hypertension once she has recovered from this acute illness (6) Asthma Assessment/Plan: Controlled on duonebs prn in the hospital (7) Tobacco abuse Assessment/Plan: Advised to quit smoking Nicotine patch - Current Meds Current Meds: Current Medications Generic Name Dose Route Start Last Admin Trade Name Freq PRN Reason Stop Dose Admin Acetaminophen 650 mg 03/22/17 07:23 03/25/17 07:21 Tylenol PO 650 mg Q4HR PRN Administration Pain 1 to 4 Albuterol 2.5 mg 03/22/17 09:29 03/24/17 04:45 INH 2.5 mg RTQ4H PRN Administration Wheezing Albuterol/Ipratropium 3 ml 03/22/17 09:29 03/25/17 04:35 Duoneb INH 3 ml RTQID PRN Administration Shortness of Air/Wheezing Alprazolam 0.25 mg 03/22/17 09:28 03/24/17 21:12 Xanax PO 0.25 mg Q4HR PRN Administration Anxiety Famotidine 20 mg 03/22/17 09:00 03/25/17 08:12 Pepcid PO 20 mg DAILY BRYANT Administration Ketorolac Tromethamine 30 mg 03/25/17 08:55 03/25/17 09:15 Toradol Inj IVP 03/30/17 08:54 30 mg Q4HR PRN Administration PAIN Levofloxacin 750 mg 03/25/17 12:00 03/25/17 11:58 Levaquin PO 750 mg DAILY BRYANT Administration Methylprednisolone Sodium Succinate 125 mg 03/24/17 22:00 03/25/17 05:40 Solu-Medrol (125mg Vial) IVP 03/25/17 14:01 Not Given TID [facility] Nicotine 1 patch 03/22/17 10:00 03/25/17 10:51 Nicoderm TOP Not Given DAILY BRYANT Ondansetron HCl 4 mg 03/22/17 07:23 03/24/17 21:12 Zofran Inj IVP 4 mg Q6HR PRN Administration Nausea / Vomiting Oxycodone HCl 5 mg 03/22/17 07:23 03/24/17 13:59 Roxicodone PO 5 mg Q4HR PRN Administration Pain 5 to 7 Oxycodone HCl 10 mg 03/24/17 08:31 03/25/17 07:21 Roxicodone PO 10 mg Q4HR PRN Administration PAIN Sodium Chloride 10 ml 03/22/17 07:23 03/23/17 07:54 Normal Saline Flush 0.9% IVP 10 ml PRN PRN Administration NEEDED PER PROVIDER ORDERS Sodium Chloride 10 ml 03/22/17 14:00 03/25/17 06:53 Normal Saline Flush 0.9% IVP 10 ml Q8HR BRYANT Administration Sodium Phosphate 250 mg 03/25/17 08:00 03/25/17 11:59 K-Phos Neutral PO 250 mg TIDWM BRYANT Administration - Lab Result Lab results reviewed: Yes Fish Bone Diagrams: 03/25/17 05:29 03/25/17 05:29 - Diagnostic Imaging Results Diagnostic Imaging Results: Final report reviewed - Additional Planning Condition/Complexity: Stable My Orders: My Active Orders 03/25/17 08:00 Neutra-Phos [K-Phos Neutral] 250 mg PO TIDWM 03/25/17 12:00 levoFLOXacin [Levaquin] 750 mg PO DAILY 03/26/17 05:00 CBC - COMP BLD CT W/AUTO DIFF [HEME] DAILYLAB CMP, RFLX TO IONIZED CA IF [CHEM] DAILYLAB 03/27/17 05:00 CBC - COMP BLD CT W/AUTO DIFF [HEME] DAILYLAB CMP, RFLX TO IONIZED CA IF [CHEM] DAILYLAB 03/28/17 05:00 CBC - COMP BLD CT W/AUTO DIFF [HEME] DAILYLAB CMP, RFLX TO IONIZED CA IF [CHEM] DAILYLAB Consult/Specialty: Obstetrics Plan Discussed with:: Patient, Spouse Time Spent: 31-60 minutes Subjective - Subjective Patient Reports: Abdominal Pain (She states her pain is worse and she states it is mostly located in the lower right and lower left quadrant of the abdomen. No nausea or vomiting. Patient denies any fevers. She did have mild reaction to the blood transfusion yesterday but feels better now.) Nursing Reports: No Complaints Objective Vital Signs: Vital Signs - 24 hr 03/24/17 03/24/17 03/24/17 13:00 14:52 15:48 Temperature 36.9 C 36.8 C Heart Rate Heart Rate [ 90 Brachial] Heart Rate [ 88 93 Monitoring electrodes] Respiratory 15 16 16 Rate Blood Pressure 151/75 H 129/76 148/89 H [Left Brachial artery] Blood Pressure [Right Brachial artery] O2 Saturation 93 94 96 03/24/17 03/24/17 03/24/17 18:59 19:29 20:40 Temperature 37.7 C H 37.8 C H 37.4 C Heart Rate 92 Heart Rate [ 90 89 87 Brachial] Heart Rate [ Monitoring electrodes] Respiratory 16 14 20 Rate Blood Pressure [Left Brachial artery] Blood Pressure 139/91 H 155/86 H 145/94 H [Right Brachial artery] O2 Saturation 96 97 03/24/17 03/24/17 03/25/17 22:12 23:41 04:22 Temperature 36.9 C 37 C 37.0 C Heart Rate Heart Rate [ 98 86 87 Brachial] Heart Rate [ Monitoring electrodes] Respiratory 16 18 18 Rate Blood Pressure [Left Brachial artery] Blood Pressure 126/77 128/78 149/93 H [Right Brachial artery] O2 Saturation 97 92 94 03/25/17 03/25/17 03/25/17 04:35 07:37 09:30 Temperature 36.9 C Heart Rate 90 85 Heart Rate [ 86 Brachial] Heart Rate [ Monitoring electrodes] Respiratory 18 18 18 Rate Blood Pressure [Left Brachial artery] Blood Pressure 144/92 H [Right Brachial artery] O2 Saturation 94 03/25/17 12:43 Temperature 37 C Heart Rate Heart Rate [ 85 Brachial] Heart Rate [ Monitoring electrodes] Respiratory 20 Rate Blood Pressure [Left Brachial artery] Blood Pressure 148/88 H [Right Brachial artery] O2 Saturation 96 Oxygen O2 Source Room air I&O (Last 24 Hrs): Intake and Output Totals x24h 03/23/17 03/24/17 03/25/17 23:59 23:59 23:59 Intake Total 3805 3270 2558 Output Total 1516 806 415 Balance 2289 2464 2143 General: Alert, Oriented x3, Cooperative, Mild distress (abdominal pain) HEENT: Atraumatic, PERRLA, EOMI, Mucous membr. moist/pink Neck: Supple, No JVD, No thyromegaly, +2 carotid pulse wo bruit, No LAD Lymphatic: no adenopathy Neuro: Alert, Non Focal, CN 2-12 Grossly Intact, Oriented Times 3 Cardiovascular: Regular rate, Normal S1, Normal S2, No murmurs Respiratory: Chest non-tender, No respiratory distress, Breath sounds nml Abdomen: Normal bowel sounds, Soft, Other (Tenderness worst in the right and left lower quadrants of abd, no rebound, no guarding) Extremities: No clubbing, No cyanosis, No edema, Normal pulses, No tenderness/ swelling Skin: No rashes, No breakdown Comments/Notes: CANDIDO drain in place with minimal drainage. - Results Results: Laboratory Results WBC 13.7 x10^3/uL (4.8-10.8) H 03/25/17 05:29 RBC 3.51 10^6/uL (4.20-5.40) L 03/25/17 05:29 Hgb 10.4 g/dL (12.0-16.0) L 03/25/17 05:29 Hct 31.2 % (37.0-47.0) L 03/25/17 05:29 MCV 88.7 fL (81.0-99.0) 03/25/17 05:29 MCH 29.6 pg (27.0-31.0) 03/25/17 05:29 MCHC 33.4 g/dL (32.0-36.0) 03/25/17 05:29 RDW 13.6 % (12.0-15.0) 03/25/17 05:29 Plt Count 332 10^3/uL (130-450) 03/25/17 05:29 MPV 8.1 fL (7.9-10.8) 03/25/17 05:29 Neut # Not Reportable 03/25/17 05:29 Lymph # Not Reportable 03/25/17 05:29 [place] # Not Reportable 03/25/17 05:29 Eos # Not Reportable 03/25/17 05:29 Baso # Not Reportable 03/25/17 05:29 Absolute Nucleated RBC Not Reportable 03/25/17 05:29 Total Counted 100 03/25/17 05:29 Band Neuts % (Manual) 7 % (0-10) 03/25/17 05:29 Neutrophils # (Manual) 10.4 10^3/uL (1.5-6.6) H 03/25/17 05:29 Lymphocytes # (Manual) 1.5 10^3/uL (1.5-3.5) 03/25/17 05:29 Monocytes # (Manual) 1.8 10^3/uL (0.0-1.0) H 03/25/17 05:29 Nucleated RBCs Not Reportable 03/25/17 05:29 Differential Comment MANUAL DIFFERENTIAL 03/25/17 05:29 Platelet Estimate NORMAL (130-450,000) (NORMAL) 03/25/17 05:29 RBC Morph Micro Appear NORMAL APPEARANCE (NORMAL) 03/25/17 05:29 VBG pH 7.417 (7.31-7.41) H 03/25/17 05:29 Ionized Calcium 1.08 mmol/L (1.15-1.33) L 03/25/17 05:29 Sodium 137 mmol/L (135-145) 03/25/17 05:29 Potassium 3.3 mmol/L (3.5-5.0) L 03/25/17 05:29 Chloride 102 mmol/L (101-111) 03/25/17 05:29 Carbon Dioxide 27 mmol/L (21-32) 03/25/17 05:29 Anion Gap 8.0 (6-13) 03/25/17 05:29 BUN 8 mg/dL (6-20) 03/25/17 05:29 Creatinine 0.5 mg/dL (0.4-1.0) 03/25/17 05:29 Estimated GFR (MDRD) 135 (>89) 03/25/17 05:29 Glucose 124 mg/dL (70-100) H 03/25/17 05:29 POC Whole Bld Glucose 115 mg/dL (70 - 100) H 03/24/17 07:44 Lactic Acid 0.9 mmol/L (0.5-2.2) 03/21/17 22:26 Calcium 7.9 mg/dL (8.5-10.3) L 03/25/17 05:29 Ionized Calcium YES 03/25/17 05:29 Phosphorus 2.9 mg/dL (2.5-4.6) 03/25/17 05:29 Magnesium 1.6 mg/dL (1.7-2.8) L 03/25/17 05:29 Total Bilirubin 0.9 mg/dL (0.2-1.0) 03/25/17 05:29 AST 16 IU/L (10-42) 03/25/17 05:29 ALT 15 IU/L (10-60) 03/25/17 05:29 Alkaline Phosphatase 61 IU/L (42-121) 03/25/17 05:29 Total Protein 5.9 g/dL (6.7-8.2) L 03/25/17 05:29 Albumin 2.6 g/dL (3.2-5.5) L 03/25/17 05:29 Globulin 3.3 g/dL (2.1-4.2) 03/25/17 05:29 Albumin/Globulin Ratio 0.8 (1.0-2.2) L 03/25/17 05:29 Lipase < 10 U/L (22-51) L 03/21/17 22:26 Ur Specific [place] 1.020 (1.002-1.030) 03/21/17 23:18 Urine HCG, Qual NEGATIVE 03/21/17 23:18 Blood Type O POSITIVE 03/22/17 05:36 Antibody Screen NEGATIVE 03/22/17 05:36 Crossmatch IS Only See Detail 03/22/17 05:36 - Procedures Procedures: Procedures APPLICATION OF SPLINT (01/13/13) CARPAL TUNNEL RELEASE (04/06/13) EXTRACTION OF ENDOMETRIUM, ENDO (02/16/17) RELEASE GREATER OMENTUM, PERCUTANEOUS ENDOSCOPIC APPROACH (02/16/17)
[2017-03-25] MEDS ORDERED: LIDOCAINE PATCH 5% TOP PRN (18:25)
[2017-03-25] MEDS: ALPRAZolam 0.25 MG TABLET PO PRN (19:56)
[2017-03-26] MEDS: KETOROLAC 30 MG/ML VIAL IVP PRN ×4 (03:08→23:39)
[2017-03-26] MEDS: SODIUM CHLORIDE FLUSH 0.9% 10 ML SYRINGE IVP PRN ×2 (03:08→07:33)
[2017-03-26] MEDS: oxyCODONE 5 MG TABLET PO PRN ×3 (05:17→16:09)
[2017-03-26 05:32] LABS: BASOPHILS % (AUTO) 0.3 %; EOSINOPHILS % (AUTO) 0.9 %; HCT - HEMATOCRIT 31.9 % (37.0-47.0); LYMPHOCYTES % (AUTO) 13.7 %; MEAN CORPUSCULAR HGB CONC 34.6 g/dL (32.0-36.0); MEAN CORPUSCULAR VOLUME 86.7 fL (81.0-99.0); MEAN PLATELET VOLUME 7.3 fL (7.9-10.8); NEUTROPHILS % (AUTO) 77.1 %; RED BLOOD COUNT 3.68 10^6/uL (4.20-5.40); RED CELL DISTRIBUTION WIDTH 13.5 % (12.0-15.0); UNCORRECTED WHITE BLOOD COUNT 14.9 x10^3/uL; WHITE BLOOD COUNT 14.9 x10^3/uL (4.8-10.8)
[2017-03-26 05:38] LABS: ALBUMIN/GLOBULIN RATIO 0.8 (1.0-2.2); BILIRUBIN,TOTAL 0.7 mg/dL (0.2-1.0); BUN - BLOOD UREA NITROGEN 7 mg/dL (6-20); CALCIUM 8.4 mg/dL (8.5-10.3); CARBON DIOXIDE - CO2 26 mmol/L (21-32); CHLORIDE 102 mmol/L (101-111); CREATININE 0.5 mg/dL (0.4-1.0); GFR - MDRD 135 (>89); GLUCOSE 123 mg/dL (70-100); POTASSIUM 3.4 mmol/L (3.5-5.0); SODIUM 136 mmol/L (135-145); TOTAL PROTEIN 6.3 g/dL (6.7-8.2)
[2017-03-26 06:21] LABS: BAND NEUTROPHILS % (MANUAL) 3 %; LYMPHOCYTES % (MANUAL) 9 %; NEUTROPHILS % (MANUAL) 75 %; NP AUTO DIFFERENTIAL? YES; NP MAN DIFFERENTIAL? NO; PLATELET ESTIMATE, MANUAL NORMAL (130-450,000) (NORMAL); TOTAL CELLS COUNTED 100
[2017-03-26] MEDS: SODIUM CHLORIDE FLUSH 0.9% 10 ML SYRINGE IVP SCH ×3 (06:59→19:09)
[2017-03-26] MEDS ORDERED: POTASSIUM CHLORIDE 20 MEQ TABLET PO SCH (08:00)
[2017-03-26] MEDS: levoFLOXacin 250 MG TABLET PO SCH (08:06)
[2017-03-26] MEDS: FAMOTIDINE 20 MG TABLET PO SCH (08:06)
[2017-03-26] MEDS: NEUTRA-PHOS 250 MG TABLET PO SCH ×3 (08:06→16:10)
[2017-03-26] MEDS: NICOTINE 14 MG PATCH TOP SCH (08:07)
--- NOTE | 2017-03-26 10:17 | PROVIDER PROGRESS NOTE ---
Subjective - General Admit Date: 03/22/17 Procedure Date: 03/22/17 Post Op Days: 4 Procedure Performed: L Scope Drainage of Hematomas/Abcess with CANDIDO Drain Insertion - Review of Systems Wound/Incisions: positive: Healing well, Dressing dry and intact, No drainage. negative: Drainage Drain Type: CANDIDO X2; La Drain Output Description: less than 5 ml General: positive: No symptoms (Pt notes a good responce to Toradol. Pain 4/10 prior to CANDIDO removal), Other (Pain 6/10 up in chair) HEENT: positive: No symptoms Pulmonary: positive: No symptoms (need meb neb last night) Cardiovascular: positive: No symptoms Gastrointestinal: positive: Abdominal pain (Appropriate for surgery. 11/25), Flatus (Passing flatus). negative: Nausea, Vomiting Genitourinary: positive: No symptoms Musculoskeletal: positive: No symptoms Skin: positive: No symptoms Psychiatric: positive: No symptoms (out look improving with CANDIDO removal) Objective - Patient Data Reviewed Vital Signs: Yes Vital Signs: Vital Signs x48h Temp Pulse Resp BP Pulse Ox 03/26/17 07:22 37 C 86 16 156/94 H 95 03/26/17 05:24 36.7 C 81 20 150/95 H 95 Weight: Weight 03/24/17 03/25/17 03/26/17 23:59 23:59 23:59 Weight (kg) 110 kg 106 kg 106 kg Intake & Output: Intake and Output Totals x24h 03/24/17 03/25/17 03/26/17 23:59 23:59 23:59 Intake Total 3270 2758 450 Output Total 806 446 25 Balance 2464 2312 425 - Lab Results Lab Results: 03/26/17 05:19 03/26/17 05:19 Other Lab Results: Lab Results x24hrs 03/26/17 03/26/17 03/22/17 Range/Units 05:19 05:19 05:36 WBC 14.9 H (4.8-10.8) x10^3/uL RBC 3.68 L (4.20-5.40) 10^6/uL Hgb 11.0 L (12.0-16.0) g/dL Hct 31.9 L (37.0-47.0) % MCV 86.7 (81.0-99.0) fL MCH 30.0 (27.0-31.0) pg MCHC 34.6 (32.0-36.0) g/dL RDW 13.5 (12.0-15.0) % Plt Count 353 (130-450) 10^3/uL MPV 7.3 L (7.9-10.8) fL Neut # Not Reportable Lymph # Not Reportable [place] # Not Reportable Eos # Not Reportable Baso # Not Reportable Absolute Nucleated RBC Not Reportable Total Counted 100 Band Neuts % (Manual) 3 (0 - 10) % Neutrophils # (Manual) 11.6 H (1.5-6.6) 10^3/uL Lymphocytes # (Manual) 1.3 L (1.5-3.5) 10^3/uL Monocytes # (Manual) 1.9 H (0.0-1.0) 10^3/uL Nucleated RBCs Not Reportable Differential Comment MANUAL DIFFERENTIAL Platelet Estimate NORMAL (130-450,000) (NORMAL) RBC Morph Micro Appear NORMAL APPEARANCE (NORMAL) Sodium 136 (135-145) mmol/L Potassium 3.4 L (3.5-5.0) mmol/L Chloride 102 (101-111) mmol/L Carbon Dioxide 26 (21-32) mmol/L Anion Gap 8.0 (6-13) BUN 7 (6-20) mg/dL Creatinine 0.5 (0.4-1.0) mg/dL Estimated GFR (MDRD) 135 (>89) Glucose 123 H (70-100) mg/dL Calcium 8.4 L (8.5-10.3) mg/dL Ionized Calcium NO Total Bilirubin 0.7 (0.2-1.0) mg/dL AST 18 (10-42) IU/L ALT 17 (10-60) IU/L Alkaline Phosphatase 61 (42-121) IU/L Total Protein 6.3 L (6.7-8.2) g/dL Albumin 2.7 L (3.2-5.5) g/dL Globulin 3.6 (2.1-4.2) g/dL Albumin/Globulin Ratio 0.8 L (1.0-2.2) Blood Type O POSITIVE Antibody Screen NEGATIVE Crossmatch IS Only See Detail - Current Medications Current Medications: Current Medications Generic Name Dose Route Start Last Admin Trade Name Freq PRN Reason Stop Dose Admin Acetaminophen 650 mg 03/22/17 07:23 03/25/17 07:21 Tylenol PO 650 mg Q4HR PRN Administration Pain 1 to 4 Albuterol 2.5 mg 03/22/17 09:29 03/24/17 04:45 INH 2.5 mg RTQ4H PRN Administration Wheezing Albuterol/Ipratropium 3 ml 03/22/17 09:29 03/25/17 23:05 Duoneb INH 3 ml RTQID PRN Administration Shortness of Air/Wheezing Alprazolam 0.25 mg 03/22/17 09:28 03/25/17 19:56 Xanax PO 0.25 mg Q4HR PRN Administration Anxiety Famotidine 20 mg 03/22/17 09:00 03/26/17 08:06 Pepcid PO 20 mg DAILY BRYANT Administration Ketorolac Tromethamine 30 mg 03/25/17 08:55 03/26/17 07:33 Toradol Inj IVP 03/30/17 08:54 30 mg Q4HR PRN Administration PAIN Levofloxacin 750 mg 03/25/17 12:00 03/26/17 08:06 Levaquin PO 750 mg DAILY BRYANT Administration Lidocaine 1 patch 03/25/17 18:25 03/25/17 19:57 Lidoderm Patch TOP 1 patch DAILY PRN Administration PAIN Nicotine 1 patch 03/22/17 10:00 03/26/17 08:07 Nicoderm TOP Not Given DAILY BRYANT Ondansetron HCl 4 mg 03/22/17 07:23 03/24/17 21:12 Zofran Inj IVP 4 mg Q6HR PRN Administration Nausea / Vomiting Oxycodone HCl 5 mg 03/22/17 07:23 03/24/17 13:59 Roxicodone PO 5 mg Q4HR PRN Administration Pain 5 to 7 Oxycodone HCl 10 mg 03/24/17 08:31 03/26/17 08:52 Roxicodone PO 10 mg Q4HR PRN Administration PAIN Sodium Chloride 10 ml 03/22/17 07:23 03/26/17 07:33 Normal Saline Flush 0.9% IVP 10 ml PRN PRN Administration NEEDED PER PROVIDER ORDERS Sodium Chloride 10 ml 03/22/17 14:00 03/26/17 06:59 Normal Saline Flush 0.9% IVP 10 ml Q8HR BRYANT Administration Sodium Phosphate 250 mg 03/25/17 08:00 03/26/17 08:06 K-Phos Neutral PO 250 mg TIDWM BRYANT Administration - Physical Exam Wound/Incisions: positive: Healing well, No drainage (CANDIDO removed following 10 Mg Oxycodone) Respiratory: positive: Chest non-tender, No respiratory distress, Breath sounds nml Cardiovascular: positive: Regular rate & rhythm, No murmur Abdomen: positive: Nml bowel sounds, Tenderness (right lower quadrent mild no guarding or rebound). negative: Guarding, Rebound Skin: positive: Color nml, No rash, Warm, Dry Extremities: negative: Calf tenderness, Concha's sign/cords Neurologic/Psychiatric: positive: Oriented x3, Mood/affect nml Impression/Plan - Problem List Problem List: 1. S/P hematoma formation with infection. improving clinically. however WBC stable need to see more decrease. 2. Anemia risen to 11.0 gms 3. Hypokalemia normalizing with oral replacement 4. GI tract resumed normal activity. 5. hypoprotenemia improving 6. pain control better with toradol. need ;to change to Motrin tomorrow. CANDIDO removed this AM with expected pain.
--- NOTE | 2017-03-26 13:09 | PROVIDER PROGRESS NOTE ---
Assessment/Plan - Problem List (1) Intra-abdominal abscess post-procedure Qualifiers: Encounter type: subsequent encounter Qualified Code(s): T81.4XXD - Infection following a procedure, subsequent encounter; K65.1 - Peritoneal abscess Assessment/Plan: Patient had a hysterectomy and left oopherectomy on 03/17/17 and was discharged home on 04/07 then returned due to increasing abdominopelvic pain and was found to have leukocytosis with CT findings suspicious for abscess. patient was taken to OR and underwent Laprocscopic drainage of pelvic Hematoma/abcess we were consulted for medical management. Patients pain had improved but worse this morning but WBC continues to come down to from 19.8 to 13.7 but up to 14.9 today Minimal drainage from CANDIDO tube will be removed today General Maintenance Technician is following Peritoneal fluid culture is growing strep sanguis which is susceptible to levaquin, IV zosyn and flagyl discontinued started on levaquin day 2 Continue to monitor closely VSS WBC increased today but pain is better. Will continue to monitor for another day if WBC improved tomorrow patient maybe discharged tomorrow (2) Anemia Assessment/Plan: Hb dropped from 10.2 down to 7.5 on 03/24/17 Patient did have hematoma along with abscess and with multiple surgical procedures This is likely blood loss anemia Patient transfused 2 units of PRBCs Hb improved to 11.0 Monitor (3) Hypokalemia Assessment/Plan: K 3.4 today Replace (4) Hypocalcemia Assessment/Plan: Resolved (5) HTN (hypertension) Qualifiers: Hypertension type: essential hypertension Qualified Code(s): I10 - Essential (primary) hypertension Assessment/Plan: Patient had periop HTN but BP now stable Not on on any antihypertensives at home BP continues to be elevated on clonidine prn Patient will need outpatient workup for hypertension once she has recovered from this acute illness (6) Asthma Assessment/Plan: Controlled on duonebs prn in the hospital (7) Tobacco abuse Assessment/Plan: Advised to quit smoking Nicotine patch - Current Meds Current Meds: Current Medications Generic Name Dose Route Start Last Admin Trade Name Freq PRN Reason Stop Dose Admin Acetaminophen 650 mg 03/22/17 07:23 03/25/17 07:21 Tylenol PO 650 mg Q4HR PRN Administration Pain 1 to 4 Albuterol 2.5 mg 03/22/17 09:29 03/24/17 04:45 INH 2.5 mg RTQ4H PRN Administration Wheezing Albuterol/Ipratropium 3 ml 03/22/17 09:29 03/25/17 23:05 Duoneb INH 3 ml RTQID PRN Administration Shortness of Air/Wheezing Alprazolam 0.25 mg 03/22/17 09:28 03/25/17 19:56 Xanax PO 0.25 mg Q4HR PRN Administration Anxiety Famotidine 20 mg 03/22/17 09:00 03/26/17 08:06 Pepcid PO 20 mg DAILY BRYANT Administration Ketorolac Tromethamine 30 mg 03/25/17 08:55 03/26/17 07:33 Toradol Inj IVP 03/30/17 08:54 30 mg Q4HR PRN Administration PAIN Levofloxacin 750 mg 03/25/17 12:00 03/26/17 08:06 Levaquin PO 750 mg DAILY BRYANT Administration Lidocaine 1 patch 03/25/17 18:25 03/25/17 19:57 Lidoderm Patch TOP 1 patch DAILY PRN Administration PAIN Nicotine 1 patch 03/22/17 10:00 03/26/17 08:07 Nicoderm TOP Not Given DAILY [facility] Ondansetron HCl 4 mg 03/22/17 07:23 03/24/17 21:12 Zofran Inj IVP 4 mg Q6HR PRN Administration Nausea / Vomiting Oxycodone HCl 5 mg 03/22/17 07:23 03/24/17 13:59 Roxicodone PO 5 mg Q4HR PRN Administration Pain 5 to 7 Oxycodone HCl 10 mg 03/24/17 08:31 03/26/17 08:52 Roxicodone PO 10 mg Q4HR PRN Administration PAIN Sodium Chloride 10 ml 03/22/17 07:23 03/26/17 07:33 Normal Saline Flush 0.9% IVP 10 ml PRN PRN Administration NEEDED PER PROVIDER ORDERS Sodium Chloride 10 ml 03/22/17 14:00 03/26/17 06:59 Normal Saline Flush 0.9% IVP 10 ml Q8HR BRYANT Administration Sodium Phosphate 250 mg 03/25/17 08:00 03/26/17 11:44 K-Phos Neutral PO 250 mg TIDWM BRYANT Administration - Lab Result Lab results reviewed: Yes Fish Bone Diagrams: 03/26/17 05:19 03/26/17 05:19 - Diagnostic Imaging Results Diagnostic Imaging Results: Final report reviewed - Additional Planning Condition/Complexity: Improved My Orders: My Active Orders 03/25/17 12:00 levoFLOXacin [Levaquin] 750 mg PO DAILY 03/25/17 18:25 Lidocaine Patch 5% [Lidoderm Patch] 1 patch TOP DAILY PRN 03/27/17 05:00 CBC - COMP BLD CT W/AUTO DIFF [HEME] DAILYLAB CMP, RFLX TO IONIZED CA IF [CHEM] DAILYLAB 03/28/17 05:00 CBC - COMP BLD CT W/AUTO DIFF [HEME] DAILYLAB CMP, RFLX TO IONIZED CA IF [CHEM] DAILYLAB Consult/Specialty: Obstetrics Plan Discussed with:: Patient Time Spent: 31-60 minutes Subjective - Subjective Patient Reports: Feeling Better (Patient feeling much better today. States pain is better controlled. Denies any fevers or chills. She denies any nausea or vomiting.) Nursing Reports: No Complaints Objective Vital Signs: Vital Signs - 24 hr 03/25/17 03/25/17 03/25/17 15:26 20:25 22:38 Temperature 36.8 C 36.9 C Heart Rate Heart Rate [ 78 85 81 Brachial] Respiratory 16 18 Rate Blood Pressure 147/98 H 151/94 H [Right Brachial artery] O2 Saturation 97 95 03/25/17 03/26/17 03/26/17 23:05 00:06 05:24 Temperature 36.9 C 36.7 C Heart Rate 85 Heart Rate [ 90 81 Brachial] Respiratory 18 16 20 Rate Blood Pressure 150/84 H 150/95 H [Right Brachial artery] O2 Saturation 94 95 03/26/17 03/26/17 07:22 12:48 Temperature 37 C 37 C Heart Rate Heart Rate [ 86 90 Brachial] Respiratory 16 18 Rate Blood Pressure 156/94 H 148/98 H [Right Brachial artery] O2 Saturation 95 98 Oxygen O2 Source Room air I&O (Last 24 Hrs): Intake and Output Totals x24h 03/24/17 03/25/17 03/26/17 23:59 23:59 23:59 Intake Total 3270 2758 570 Output Total 806 446 25 Balance 2464 8352 545 General: Alert, Oriented x3, Cooperative, No acute distress HEENT: Atraumatic, PERRLA, EOMI, Mucous membr. moist/pink Neck: Supple, No JVD, No thyromegaly, +2 carotid pulse wo bruit, No LAD Lymphatic: no adenopathy Neuro: Alert, Non Focal, CN 2-12 Grossly Intact, Oriented Times 3 Cardiovascular: Regular rate, Normal S1, Normal S2, No murmurs Respiratory: Chest non-tender, No respiratory distress, Breath sounds nml Abdomen: Normal bowel sounds, Soft, Other (Tenderness in lower left and right quadrant improved, no guarding, no rebound, no peritoneal signs) Extremities: No clubbing, No cyanosis, No edema, Normal pulses Skin: No rashes, No breakdown, No significant lesion Comments/Notes: Wound vac in place, drain in place, surgical site looks clean and non infected - Results Results: Laboratory Results WBC 14.9 x10^3/uL (4.8-10.8) H 03/26/17 05:19 RBC 3.68 10^6/uL (4.20-5.40) L 03/26/17 05:19 Hgb 11.0 g/dL (12.0-16.0) L 03/26/17 05:19 Hct 31.9 % (37.0-47.0) L 03/26/17 05:19 MCV 86.7 fL (81.0-99.0) 03/26/17 05:19 MCH 30.0 pg (27.0-31.0) 03/26/17 05:19 MCHC 34.6 g/dL (32.0-36.0) 03/26/17 05:19 RDW 13.5 % (12.0-15.0) 03/26/17 05:19 Plt Count 353 10^3/uL (130-450) 03/26/17 05:19 MPV 7.3 fL (7.9-10.8) L 03/26/17 05:19 Neut # Not Reportable 03/26/17 05:19 Lymph # Not Reportable 03/26/17 05:19 [place]mullen # Not Reportable 03/26/17 05:19 Eos # Not Reportable 03/26/17 05:19 Baso # Not Reportable 03/26/17 05:19 Absolute Nucleated RBC Not Reportable 03/26/17 05:19 Total Counted 100 03/26/17 05:19 Band Neuts % (Manual) 3 % (0-10) 03/26/17 05:19 Neutrophils # (Manual) 11.6 10^3/uL (1.5-6.6) H 03/26/17 05:19 Lymphocytes # (Manual) 1.3 10^3/uL (1.5-3.5) L 03/26/17 05:19 Monocytes # (Manual) 1.9 10^3/uL (0.0-1.0) H 03/26/17 05:19 Nucleated RBCs Not Reportable 03/26/17 05:19 Differential Comment MANUAL DIFFERENTIAL 03/26/17 05:19 Platelet Estimate NORMAL (130-450,000) (NORMAL) 03/26/17 05:19 RBC Morph Micro Appear NORMAL APPEARANCE (NORMAL) 03/26/17 05:19 VBG pH 7.417 (7.31-7.41) H 03/25/17 05:29 Ionized Calcium 1.08 mmol/L (1.15-1.33) L 03/25/17 05:29 Sodium 136 mmol/L (135-145) 03/26/17 05:19 Potassium 3.4 mmol/L (3.5-5.0) L 03/26/17 05:19 Chloride 102 mmol/L (101-111) 03/26/17 05:19 Carbon Dioxide 26 mmol/L (21-32) 03/26/17 05:19 Anion Gap 8.0 (6-13) 03/26/17 05:19 BUN 7 mg/dL (6-20) 03/26/17 05:19 Creatinine 0.5 mg/dL (0.4-1.0) 03/26/17 05:19 Estimated GFR (MDRD) 135 (>89) 03/26/17 05:19 Glucose 123 mg/dL (70-100) H 03/26/17 05:19 POC Whole Bld Glucose 115 mg/dL (70 - 100) H 03/24/17 07:44 Lactic Acid 0.9 mmol/L (0.5-2.2) 03/21/17 22:26 Calcium 8.4 mg/dL (8.5-10.3) L 03/26/17 05:19 Ionized Calcium NO 03/26/17 05:19 Phosphorus 2.9 mg/dL (2.5-4.6) 03/25/17 05:29 Magnesium 1.6 mg/dL (1.7-2.8) L 03/25/17 05:29 Total Bilirubin 0.7 mg/dL (0.2-1.0) 03/26/17 05:19 AST 18 IU/L (10-42) 03/26/17 05:19 ALT 17 IU/L (10-60) 03/26/17 05:19 Alkaline Phosphatase 61 IU/L (42-121) 03/26/17 05:19 Total Protein 6.3 g/dL (6.7-8.2) L 03/26/17 05:19 Albumin 2.7 g/dL (3.2-5.5) L 03/26/17 05:19 Globulin 3.6 g/dL (2.1-4.2) 03/26/17 05:19 Albumin/Globulin Ratio 0.8 (1.0-2.2) L 03/26/17 05:19 Lipase < 10 U/L (22-51) L 03/21/17 22:26 Ur Specific [place] 1.020 (1.002-1.030) 03/21/17 23:18 Urine HCG, Qual NEGATIVE 03/21/17 23:18 Blood Type O POSITIVE 03/22/17 05:36 Antibody Screen NEGATIVE 03/22/17 05:36 Crossmatch IS Only See Detail 03/22/17 05:36 - Procedures Procedures: Procedures APPLICATION OF SPLINT (01/13/13) CARPAL TUNNEL RELEASE (04/06/13) EXTRACTION OF ENDOMETRIUM, ENDO (02/16/17) INSPECTION OF BLADDER, ENDO (03/17/17) RELEASE GREATER OMENTUM, PERCUTANEOUS ENDOSCOPIC APPROACH (02/16/17) RESECTION OF BILATERAL FALLOPIAN TUBES, OPEN APPROACH (03/17/17) RESECTION OF CERVIX, OPEN APPROACH (03/17/17) RESECTION OF LEFT OVARY, OPEN APPROACH (03/17/17) RESECTION OF UTERUS, OPEN APPROACH (03/17/17)
[2017-03-26] MEDS: ALPRAZolam 0.25 MG TABLET PO PRN (18:50)
[2017-03-26] MEDS ORDERED: LORazepam 2 MG/ML SYRINGE IVP SCH (19:00)
[2017-03-26] MEDS ORDERED: LORazepam 2 MG/ML SYRINGE ONE (19:08)
[2017-03-26] MEDS: IPRATROPIUM/ALBUTEROL 3 ML NEB INH PRN (19:21)
[2017-03-27] MEDS: oxyCODONE 5 MG TABLET PO PRN ×4 (03:43→18:21)
[2017-03-27] MEDS: KETOROLAC 30 MG/ML VIAL IVP PRN (03:43)
[2017-03-27] MEDS: SODIUM CHLORIDE FLUSH 0.9% 10 ML SYRINGE IVP PRN ×3 (03:44→18:16)
[2017-03-27] MEDS: SODIUM CHLORIDE FLUSH 0.9% 10 ML SYRINGE IVP SCH ×3 (05:23→22:30)
[2017-03-27 06:30] LABS: BASOPHILS % (AUTO) 0.3 %; EOSINOPHILS % (AUTO) 1.2 %; HCT - HEMATOCRIT 33.8 % (37.0-47.0); HGB - HEMOGLOBIN 11.4 g/dL (12.0-16.0); MEAN CORPUSCULAR HEMOGLOBIN 29.6 pg (27.0-31.0); MEAN CORPUSCULAR HGB CONC 33.7 g/dL (32.0-36.0); MEAN CORPUSCULAR VOLUME 87.9 fL (81.0-99.0); MEAN PLATELET VOLUME 7.7 fL (7.9-10.8); MONOCYTES % (AUTO) 8.4 %; NEUTROPHILS % (AUTO) 78.1 %; RED BLOOD COUNT 3.85 10^6/uL (4.20-5.40); RED CELL DISTRIBUTION WIDTH 13.3 % (12.0-15.0); UNCORRECTED WHITE BLOOD COUNT 16.9 x10^3/uL; WHITE BLOOD COUNT 16.9 x10^3/uL (4.8-10.8)
[2017-03-27 06:46] LABS: ALBUMIN/GLOBULIN RATIO 0.8 (1.0-2.2); BILIRUBIN,TOTAL 0.6 mg/dL (0.2-1.0); BUN - BLOOD UREA NITROGEN 8 mg/dL (6-20); CALCIUM 8.5 mg/dL (8.5-10.3); CARBON DIOXIDE - CO2 25 mmol/L (21-32); CHLORIDE 102 mmol/L (101-111); CREATININE 0.5 mg/dL (0.4-1.0); GFR - MDRD 135 (>89); GLUCOSE 139 mg/dL (70-100); POTASSIUM 3.6 mmol/L (3.5-5.0); SODIUM 134 mmol/L (135-145); TOTAL PROTEIN 6.3 g/dL (6.7-8.2)
[2017-03-27 07:10] LABS: BAND NEUTROPHILS % (MANUAL) 4 %; LYMPHOCYTES % (MANUAL) 9 %; NEUTROPHILS % (MANUAL) 72 %; TOTAL CELLS COUNTED 100
[2017-03-27 07:11] LABS: NP AUTO DIFFERENTIAL? YES; NP MAN DIFFERENTIAL? NO; PLATELET ESTIMATE, MANUAL NORMAL (130-450,000) (NORMAL)
[2017-03-27] MEDS ORDERED: PIPERACILLIN/TAZOBACTAM 3.375 GM in SODIUM CHLORIDE 0.9% MINIBAG 100 ML IV SCH (08:00)
[2017-03-27] MEDS ORDERED: LORazepam 2 MG/ML SYRINGE IVP SCH (08:20)
[2017-03-27] MEDS: NEUTRA-PHOS 250 MG TABLET PO SCH ×3 (09:02→17:02)
[2017-03-27] MEDS: FAMOTIDINE 20 MG TABLET PO SCH (09:02)
[2017-03-27] MEDS: NICOTINE 14 MG PATCH TOP SCH (09:06)
--- NOTE | 2017-03-27 09:24 | PROVIDER PROGRESS NOTE ---
Subjective - General Admit Date: 03/22/17 Procedure Date: 03/22/17 Post Op Days: 5 Procedure Performed: L Scope Drainage of Hematomas/Abcess with CANDIDO Drain Insertion - Review of Systems Wound/Incisions: positive: Healing well, No drainage (CANDIDO removed following 10 Mg Oxycodone) Drain Type: CANDIDO X2; La. Removed 03/26/17 Drain Output Description: less than 5 ml General: positive: No symptoms (Pt notes a good responce to Toradol. Pain 4/10 prior to CANDIDO removal. Pain good contorl. /10. ambulating), Other (Pain 6/10 up in chair) HEENT: positive: No symptoms Pulmonary: positive: No symptoms (need meb neb last night) Cardiovascular: positive: No symptoms Gastrointestinal: positive: Abdominal pain (Appropriate for surgery. 11/25), Flatus (Passing flatus). negative: Nausea, Vomiting Genitourinary: positive: No symptoms Musculoskeletal: positive: No symptoms Skin: positive: No symptoms Psychiatric: positive: No symptoms (out look improving with CANDIDO removal), Depression (Pt is depressed by WBC.) Objective - Patient Data Reviewed Vital Signs: Yes Vital Signs: Vital Signs x48h Temp Pulse Resp BP Pulse Ox 03/27/17 07:41 36.8 C 81 18 151/96 H 94 03/27/17 04:18 36.9 C 79 18 149/88 H 95 Weight: Weight 03/25/17 03/26/17 03/27/17 23:59 23:59 23:59 Weight (kg) 106 kg 106 kg 105.5 kg Intake & Output: Intake and Output Totals x24h 03/25/17 03/26/17 03/27/17 23:59 23:59 23:59 Intake Total 2758 1120 Output Total 446 25 Balance 2312 1095 - Lab Results Lab Results: 03/27/17 05:09 03/27/17 05:09 Other Lab Results: Lab Results x24hrs 03/27/17 03/27/17 Range/Units 05:09 05:09 WBC 16.9 H (4.8-10.8) x10^3/uL RBC 3.85 L (4.20-5.40) 10^6/uL Hgb 11.4 L (12.0-16.0) g/dL Hct 33.8 L (37.0-47.0) % MCV 87.9 (81.0-99.0) fL MCH 29.6 (27.0-31.0) pg MCHC 33.7 (32.0-36.0) g/dL RDW 13.3 (12.0-15.0) % Plt Count 382 (130-450) 10^3/uL MPV 7.7 L (7.9-10.8) fL Neut # Not Reportable Lymph # Not Reportable [place] # Not Reportable Eos # Not Reportable Baso # Not Reportable Absolute Nucleated RBC Not Reportable Total Counted 100 Band Neuts % (Manual) 4 (0 - 10) % Metamyelocytes % 3 H ( - 0) % Myelocytes % 4 H ( - 0) % Neutrophils # (Manual) 12.8 H (1.5-6.6) 10^3/uL Lymphocytes # (Manual) 1.5 (1.5-3.5) 10^3/uL Monocytes # (Manual) 1.4 H (0.0-1.0) 10^3/uL Nucleated RBCs Not Reportable Differential Comment MANUAL DIFFERENTIAL Platelet Estimate NORMAL (130-450,000) (NORMAL) RBC Morph Micro Appear NORMAL APPEARANCE (NORMAL) Sodium 134 L (135-145) mmol/L Potassium 3.6 (3.5-5.0) mmol/L Chloride 102 (101-111) mmol/L Carbon Dioxide 25 (21-32) mmol/L Anion Gap 7.0 (6-13) BUN 8 (6-20) mg/dL Creatinine 0.5 (0.4-1.0) mg/dL Estimated GFR (MDRD) 135 (>89) Glucose 139 H (70-100) mg/dL Calcium 8.5 (8.5-10.3) mg/dL Ionized Calcium NO Total Bilirubin 0.6 (0.2-1.0) mg/dL AST 21 (10-42) IU/L ALT 17 (10-60) IU/L Alkaline Phosphatase 59 (42-121) IU/L Total Protein 6.3 L (6.7-8.2) g/dL Albumin 2.7 L (3.2-5.5) g/dL Globulin 3.6 (2.1-4.2) g/dL Albumin/Globulin Ratio 0.8 L (1.0-2.2) - Current Medications Current Medications: Current Medications Generic Name Dose Route Start Last Admin Trade Name Freq PRN Reason Stop Dose Admin Acetaminophen 650 mg 03/22/17 07:23 03/25/17 07:21 Tylenol PO 650 mg Q4HR PRN Administration Pain 1 to 4 Albuterol 2.5 mg 03/22/17 09:29 03/24/17 04:45 INH 2.5 mg RTQ4H PRN Administration Wheezing Albuterol/Ipratropium 3 ml 03/22/17 09:29 03/26/17 19:21 Duoneb INH 3 ml RTQID PRN Administration Shortness of Air/Wheezing Alprazolam 0.25 mg 03/22/17 09:28 03/26/17 18:50 Xanax PO 0.25 mg Q4HR PRN Administration Anxiety Famotidine 20 mg 03/22/17 09:00 03/27/17 09:02 Pepcid PO 20 mg DAILY BRYANT Administration Lidocaine 1 patch 03/25/17 18:25 03/25/17 19:57 Lidoderm Patch TOP 1 patch DAILY PRN Administration PAIN Lorazepam 1 mg 03/27/17 08:20 03/27/17 09:02 Ativan Inj IVP 03/27/17 09:30 1 mg ONCE BRYANT Administration Nicotine 1 patch 03/22/17 10:00 03/27/17 09:06 Nicoderm TOP Not Given DAILY [facility] Ondansetron HCl 4 mg 03/22/17 07:23 03/24/17 21:12 Zofran Inj IVP 4 mg Q6HR PRN Administration Nausea / Vomiting Oxycodone HCl 5 mg 03/22/17 07:23 03/24/17 13:59 Roxicodone PO 5 mg Q4HR PRN Administration Pain 5 to 7 Oxycodone HCl 10 mg 03/24/17 08:31 03/27/17 07:33 Roxicodone PO 10 mg Q4HR PRN Administration PAIN Sodium Chloride 10 ml 03/22/17 07:23 03/27/17 09:02 Normal Saline Flush 0.9% IVP 10 ml PRN PRN Administration NEEDED PER PROVIDER ORDERS Sodium Chloride 10 ml 03/22/17 14:00 03/27/17 05:23 Normal Saline Flush 0.9% IVP Not Given Q8HR BRYANT Sodium Phosphate 250 mg 03/25/17 08:00 03/27/17 09:02 K-Phos Neutral PO 250 mg TIDWM BRYANT Administration - Physical Exam Wound/Incisions: positive: Healing well, No drainage. negative: Erythema General Appearance: positive: No acute distress (Depressed by need to stay) Respiratory: negative: Wheezes Cardiovascular: positive: Regular rate & rhythm, No murmur Abdomen: positive: Nml bowel sounds, No distention, Tenderness (right lower quadrent). negative: Guarding, Rebound Back: negative: CVA tenderness (R), CVA tenderness (L) Skin: positive: Color nml, No rash, Warm, Dry Extremities: negative: Calf tenderness, Concha's sign/cords Neurologic/Psychiatric: positive: Oriented x3, Depressed mood/affect Impression/Plan - Problem List Problem List: WBC increased to 16.9 , returned to [facility].
[2017-03-27] MEDS: PIPERACILLIN/TAZOBACTAM 3.375 GM in SODIUM CHLORIDE 0.9% MINIBAG 100 ML IV SCH ×2 (10:05→18:16)
--- NOTE | 2017-03-27 11:27 | PROVIDER PROGRESS NOTE ---
Assessment/Plan - Problem List (1) Intra-abdominal abscess post-procedure Qualifiers: Encounter type: subsequent encounter Qualified Code(s): T81.4XXD - Infection following a procedure, subsequent encounter; K65.1 - Peritoneal abscess Assessment/Plan: Patient had a hysterectomy and left oopherectomy on 03/17/17 and was discharged home on 04/07 then returned due to increasing abdominopelvic pain and was found to have leukocytosis with CT findings suspicious for abscess. patient was taken to OR and underwent Laprocscopic drainage of pelvic Hematoma/abcess we were consulted for medical management. 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 Changed abx back to IV zosyn and will monitor for another day if WBC improved tomorrow patient maybe discharged tomorrow (2) Anemia Assessment/Plan: Hb dropped from 10.2 down to 7.5 on 03/24/17 Patient did have hematoma along with abscess and with multiple surgical procedures This is likely blood loss anemia Patient transfused 2 units of PRBCs Hb improved to 11.4 Monitor (3) Hypokalemia Assessment/Plan: Resolved (4) Hypocalcemia Assessment/Plan: Resolved (5) HTN (hypertension) Qualifiers: Hypertension type: essential hypertension Qualified Code(s): I10 - Essential (primary) hypertension Assessment/Plan: Patient had periop HTN Not on on any antihypertensives at home BP continues to be elevated on clonidine prn Patient will need outpatient workup for hypertension once she has recovered from this acute illness (6) Asthma Assessment/Plan: Controlled on duonebs prn in the hospital (7) Tobacco abuse Assessment/Plan: Advised to quit smoking Nicotine patch - Current Meds Current Meds: Current Medications Generic Name Dose Route Start Last Admin Trade Name Freq PRN Reason Stop Dose Admin Acetaminophen 650 mg 03/22/17 07:23 03/25/17 07:21 Tylenol PO 650 mg Q4HR PRN Administration Pain 1 to 4 Albuterol 2.5 mg 03/22/17 09:29 03/24/17 04:45 INH 2.5 mg RTQ4H PRN Administration Wheezing Albuterol/Ipratropium 3 ml 03/22/17 09:29 03/26/17 19:21 Duoneb INH 3 ml RTQID PRN Administration Shortness of Air/Wheezing Alprazolam 0.25 mg 03/22/17 09:28 03/26/17 18:50 Xanax PO 0.25 mg Q4HR PRN Administration Anxiety Famotidine 20 mg 03/22/17 09:00 03/27/17 09:02 Pepcid PO 20 mg DAILY BRYANT Administration Piperacillin Sod/Tazobactam 100 mls @ 25 mls/hr 03/27/17 10:00 03/27/17 10:05 Sod 3.375 gm/ Sodium Chloride IV 25 mls/hr Q8H BRYANT Administration Lidocaine 1 patch 03/25/17 18:25 03/25/17 19:57 Lidoderm Patch TOP 1 patch DAILY PRN Administration PAIN Nicotine 1 patch 03/22/17 10:00 03/27/17 09:06 Nicoderm TOP Not Given DAILY BRYANT Ondansetron HCl 4 mg 03/22/17 07:23 03/24/17 21:12 Zofran Inj IVP 4 mg Q6HR PRN Administration Nausea / Vomiting Oxycodone HCl 5 mg 03/22/17 07:23 03/24/17 13:59 Roxicodone PO 5 mg Q4HR PRN Administration Pain 5 to 7 Oxycodone HCl 10 mg 03/24/17 08:31 03/27/17 07:33 Roxicodone PO 10 mg Q4HR PRN Administration PAIN Sodium Chloride 10 ml 03/22/17 07:23 03/27/17 09:02 Normal Saline Flush 0.9% IVP 10 ml PRN PRN Administration NEEDED PER PROVIDER ORDERS Sodium Chloride 10 ml 03/22/17 14:00 03/27/17 05:23 Normal Saline Flush 0.9% IVP Not Given Q8HR BRYANT Sodium Phosphate 250 mg 03/25/17 08:00 03/27/17 09:02 K-Phos Neutral PO 250 mg TIDWM BRYANT Administration - Lab Result Lab results reviewed: Yes Fish Bone Diagrams: 03/27/17 05:09 03/27/17 05:09 - Diagnostic Imaging Results Diagnostic Imaging Results: Final report reviewed - Additional Planning Condition/Complexity: Guarded My Orders: My Active Orders 03/27/17 10:00 Piperacillin/Tazobactam [Zosyn] 3.375 gm Sodium Chloride 0.9% Minibag [Normal Saline 0.9% Minibag] 100 ml IV Q8H 03/27/17 12:00 Ibuprofen [Motrin] 600 mg PO Q6HR 03/28/17 05:00 CBC - COMP BLD CT W/AUTO DIFF [HEME] DAILYLAB CMP, RFLX TO IONIZED CA IF [CHEM] DAILYLAB Consult/Specialty: Obstetrics Plan Discussed with:: Patient Time Spent: 31-60 minutes Subjective - Subjective Patient Reports: Abdominal Pain (States she has worsening pain in the right lower abdomen this morning but overall she feels better. She is tearful as she wants to go home and I told her her WBC was worse.), Other (No fevers or chills. Patient is anxious and worried about her condition.) Nursing Reports: No Complaints Objective Vital Signs: Vital Signs - 24 hr 03/26/17 03/26/17 03/26/17 12:48 17:01 19:20 Temperature 37 C 37.2 C Heart Rate 89 Heart Rate [ 90 86 Brachial] Respiratory 18 16 18 Rate Blood Pressure [Left Brachial artery] Blood Pressure 148/98 H 154/95 H [Right Brachial artery] O2 Saturation 98 95 03/26/17 03/26/17 03/27/17 21:21 23:44 04:18 Temperature 37 C 37.1 C 36.9 C Heart Rate Heart Rate [ 91 90 79 Brachial] Respiratory 16 18 18 Rate Blood Pressure 135/82 H 158/95 H [Left Brachial artery] Blood Pressure 149/88 H [Right Brachial artery] O2 Saturation 94 94 95 03/27/17 07:41 Temperature 36.8 C Heart Rate Heart Rate [ 81 Brachial] Respiratory 18 Rate Blood Pressure [Left Brachial artery] Blood Pressure 151/96 H [Right Brachial artery] O2 Saturation 94 Oxygen O2 Source Room air I&O (Last 24 Hrs): Intake and Output Totals x24h 03/25/17 03/26/17 03/27/17 23:59 23:59 23:59 Intake Total 2758 1120 780 Output Total 446 25 Balance 2312 1095 780 General: Alert, Oriented x3, Cooperative, No acute distress HEENT: Atraumatic, PERRLA, EOMI, Mucous membr. moist/pink Neck: Supple, No JVD, No thyromegaly, +2 carotid pulse wo bruit, No LAD Lymphatic: no adenopathy Neuro: Alert, Non Focal, CN 2-12 Grossly Intact, Oriented Times 3 Cardiovascular: Regular rate, Normal S1, Normal S2, No murmurs Respiratory: Chest non-tender, No respiratory distress, Breath sounds nml Abdomen: Normal bowel sounds, Soft, Other (Tenderness in the right and left lower abd but improved. No rebound no guarding. No peritoneal signs.) Rectal: Non-Tender Extremities: No clubbing, No cyanosis, No edema, Normal pulses, No tenderness/ swelling Skin: No rashes, No breakdown - Results Results: Laboratory Results WBC 16.9 x10^3/uL (4.8-10.8) H 03/27/17 05:09 RBC 3.85 10^6/uL (4.20-5.40) L 03/27/17 05:09 Hgb 11.4 g/dL (12.0-16.0) L 03/27/17 05:09 Hct 33.8 % (37.0-47.0) L 03/27/17 05:09 MCV 87.9 fL (81.0-99.0) 03/27/17 05:09 MCH 29.6 pg (27.0-31.0) 03/27/17 05:09 MCHC 33.7 g/dL (32.0-36.0) 03/27/17 05:09 RDW 13.3 % (12.0-15.0) 03/27/17 05:09 Plt Count 382 10^3/uL (130-450) 03/27/17 05:09 MPV 7.7 fL (7.9-10.8) L 03/27/17 05:09 Neut # Not Reportable 03/27/17 05:09 Lymph # Not Reportable 03/27/17 05:09 [place] # Not Reportable 03/27/17 05:09 Eos # Not Reportable 03/27/17 05:09 Baso # Not Reportable 03/27/17 05:09 Absolute Nucleated RBC Not Reportable 03/27/17 05:09 Total Counted 100 03/27/17 05:09 Band Neuts % (Manual) 4 % (0-10) 03/27/17 05:09 Metamyelocytes % 3 % (-0) H 03/27/17 05:09 Myelocytes % 4 % (-0) H 03/27/17 05:09 Neutrophils # (Manual) 12.8 10^3/uL (1.5-6.6) H 03/27/17 05:09 Lymphocytes # (Manual) 1.5 10^3/uL (1.5-3.5) 03/27/17 05:09 Monocytes # (Manual) 1.4 10^3/uL (0.0-1.0) H 03/27/17 05:09 Nucleated RBCs Not Reportable 03/27/17 05:09 Differential Comment MANUAL DIFFERENTIAL 03/27/17 05:09 Platelet Estimate NORMAL (130-450,000) (NORMAL) 03/27/17 05:09 RBC Morph Micro Appear NORMAL APPEARANCE (NORMAL) 03/27/17 05:09 VBG pH 7.417 (7.31-7.41) H 03/25/17 05:29 Ionized Calcium 1.08 mmol/L (1.15-1.33) L 03/25/17 05:29 Sodium 134 mmol/L (135-145) L 03/27/17 05:09 Potassium 3.6 mmol/L (3.5-5.0) 03/27/17 05:09 Chloride 102 mmol/L (101-111) 03/27/17 05:09 Carbon Dioxide 25 mmol/L (21-32) 03/27/17 05:09 Anion Gap 7.0 (6-13) 03/27/17 05:09 BUN 8 mg/dL (6-20) 03/27/17 05:09 Creatinine 0.5 mg/dL (0.4-1.0) 03/27/17 05:09 Estimated GFR (MDRD) 135 (>89) 03/27/17 05:09 Glucose 139 mg/dL (70-100) H 03/27/17 05:09 POC Whole Bld Glucose 115 mg/dL (70 - 100) H 03/24/17 07:44 Lactic Acid 0.9 mmol/L (0.5-2.2) 03/21/17 22:26 Calcium 8.5 mg/dL (8.5-10.3) 03/27/17 05:09 Ionized Calcium NO 03/27/17 05:09 Phosphorus 2.9 mg/dL (2.5-4.6) 03/25/17 05:29 Magnesium 1.6 mg/dL (1.7-2.8) L 03/25/17 05:29 Total Bilirubin 0.6 mg/dL (0.2-1.0) 03/27/17 05:09 AST 21 IU/L (10-42) 03/27/17 05:09 ALT 17 IU/L (10-60) 03/27/17 05:09 Alkaline Phosphatase 59 IU/L (42-121) 03/27/17 05:09 Total Protein 6.3 g/dL (6.7-8.2) L 03/27/17 05:09 Albumin 2.7 g/dL (3.2-5.5) L 03/27/17 05:09 Globulin 3.6 g/dL (2.1-4.2) 03/27/17 05:09 Albumin/Globulin Ratio 0.8 (1.0-2.2) L 03/27/17 05:09 Lipase < 10 U/L (22-51) L 03/21/17 22:26 Ur Specific [place] 1.020 (1.002-1.030) 03/21/17 23:18 Urine HCG, Qual NEGATIVE 03/21/17 23:18 Blood Type O POSITIVE 03/22/17 05:36 Antibody Screen NEGATIVE 03/22/17 05:36 Crossmatch IS Only See Detail 03/22/17 05:36 - Procedures Procedures: Procedures APPLICATION OF SPLINT (01/13/13) CARPAL TUNNEL RELEASE (04/06/13) EXTRACTION OF ENDOMETRIUM, ENDO (02/16/17) INSPECTION OF BLADDER, ENDO (03/17/17) RELEASE GREATER OMENTUM, PERCUTANEOUS ENDOSCOPIC APPROACH (02/16/17) RESECTION OF BILATERAL FALLOPIAN TUBES, OPEN APPROACH (03/17/17) RESECTION OF CERVIX, OPEN APPROACH (03/17/17) RESECTION OF LEFT OVARY, OPEN APPROACH (03/17/17) RESECTION OF UTERUS, OPEN APPROACH (03/17/17)
[2017-03-27] MEDS: IBUPROFEN 600 MG TABLET PO SCH ×3 (12:03→23:46)
[2017-03-27] MEDS: IPRATROPIUM/ALBUTEROL 3 ML NEB INH PRN (18:25)
[2017-03-28] MEDS: oxyCODONE 5 MG TABLET PO PRN ×3 (00:06→09:00)
[2017-03-28] MEDS: PIPERACILLIN/TAZOBACTAM 3.375 GM in SODIUM CHLORIDE 0.9% MINIBAG 100 ML IV SCH ×2 (02:16→09:04)
[2017-03-28] MEDS: IBUPROFEN 600 MG TABLET PO SCH ×2 (05:05→11:42)
[2017-03-28 05:19] LABS: BASOPHILS % (AUTO) 0.5 %; EOSINOPHILS % (AUTO) 1.6 %; HCT - HEMATOCRIT 31.3 % (37.0-47.0); HGB - HEMOGLOBIN 10.7 g/dL (12.0-16.0); LYMPHOCYTES % (AUTO) 19.8 %; MEAN CORPUSCULAR HEMOGLOBIN 30.1 pg (27.0-31.0); MEAN CORPUSCULAR HGB CONC 34.3 g/dL (32.0-36.0); MEAN CORPUSCULAR VOLUME 87.8 fL (81.0-99.0); MEAN PLATELET VOLUME 7.5 fL (7.9-10.8); MONOCYTES % (AUTO) 10.1 %; RED BLOOD COUNT 3.57 10^6/uL (4.20-5.40); RED CELL DISTRIBUTION WIDTH 13.7 % (12.0-15.0)
[2017-03-28 05:29] LABS: ALBUMIN/GLOBULIN RATIO 0.8 (1.0-2.2); BILIRUBIN,TOTAL 0.3 mg/dL (0.2-1.0); BUN - BLOOD UREA NITROGEN 11 mg/dL (6-20); CALCIUM 8.6 mg/dL (8.5-10.3); CARBON DIOXIDE - CO2 28 mmol/L (21-32); CHLORIDE 104 mmol/L (101-111); CREATININE 0.6 mg/dL (0.4-1.0); GFR - MDRD 110 (>89); GLUCOSE 131 mg/dL (70-100); POTASSIUM 3.7 mmol/L (3.5-5.0); SODIUM 138 mmol/L (135-145)
[2017-03-28 05:46] LABS: BAND NEUTROPHILS % (MANUAL) 3 %; BASOPHILS % (MANUAL) 1 %; EOSINOPHILS % (MANUAL) 2 %; LYMPHOCYTES % (MANUAL) 28 %; NEUTROPHILS % (MANUAL) 50 %; NP AUTO DIFFERENTIAL? YES; NP MAN DIFFERENTIAL? NO; PLATELET ESTIMATE, MANUAL NORMAL (130-450,000) (NORMAL); TOTAL CELLS COUNTED 100
[2017-03-28] MEDS: SODIUM CHLORIDE FLUSH 0.9% 10 ML SYRINGE IVP SCH (06:46)
[2017-03-28] MEDS: NICOTINE 14 MG PATCH TOP SCH (07:54)
[2017-03-28] MEDS: NEUTRA-PHOS 250 MG TABLET PO SCH ×2 (08:59→11:41)
[2017-03-28] MEDS: FAMOTIDINE 20 MG TABLET PO SCH (08:59)
--- NOTE | 2017-03-28 09:04 | PROVIDER PROGRESS NOTE ---
Subjective - General Admit Date: 03/22/17 Procedure Date: 03/22/17 Post Op Days: 6 Procedure Performed: L Scope Drainage of Hematomas/Abcess with CANDIDO Drain Insertion - Review of Systems Wound/Incisions: positive: Healing well, No drainage. negative: Erythema Drain Type: CANDIDO X2; La. Removed 03/26/17 Drain Output Description: less than 5 ml General: positive: No symptoms (Pt notes a good responce to Motrin. Pain good contorl. 10/26. ambulating, deficating, voiding.), Other (Pain 10 up in chair ) HEENT: positive: No symptoms Pulmonary: positive: No symptoms (need meb neb last night) Cardiovascular: positive: No symptoms Gastrointestinal: positive: Abdominal pain (Appropriate for surgery. 11/25), Flatus (Passing flatus). negative: Nausea, Vomiting Genitourinary: positive: No symptoms Musculoskeletal: positive: No symptoms Skin: positive: No symptoms Psychiatric: positive: No symptoms (out look improving with CANDIDO removal) Objective - Patient Data Reviewed Vital Signs: Yes Vital Signs: Vital Signs x48h Temp Pulse Resp BP Pulse Ox 03/28/17 07:39 36.6 C 89 18 138/76 H 95 03/28/17 05:00 36.8 C 78 16 120/80 96 Weight: Weight 03/26/17 03/27/17 03/28/17 23:59 23:59 23:59 Weight (kg) 106 kg 105.5 kg 104.5 kg Intake & Output: Intake and Output Totals x24h 03/26/17 03/27/17 03/28/17 23:59 23:59 23:59 Intake Total 1120 1630 600 Output Total 25 Balance 1095 1630 600 - Lab Results Lab Results: 03/28/17 05:01 03/28/17 05:01 Other Lab Results: Lab Results x24hrs 03/28/17 03/28/17 Range/Units 05:01 05:01 WBC 12.0 H (4.8-10.8) x10^3/uL RBC 3.57 L (4.20-5.40) 10^6/uL Hgb 10.7 L (12.0-16.0) g/dL Hct 31.3 L (37.0-47.0) % MCV 87.8 (81.0-99.0) fL MCH 30.1 (27.0-31.0) pg MCHC 34.3 (32.0-36.0) g/dL RDW 13.7 (12.0-15.0) % Plt Count 373 (130-450) 10^3/uL MPV 7.5 L (7.9-10.8) fL Neut # Not Reportable Lymph # Not Reportable [place] # Not Reportable Eos # Not Reportable Baso # Not Reportable Absolute Nucleated RBC Not Reportable Total Counted 100 Band Neuts % (Manual) 3 (0 - 10) % Metamyelocytes % 5 H ( - 0) % Myelocytes % 5 H ( - 0) % Neutrophils # (Manual) 6.4 (1.5-6.6) 10^3/uL Lymphocytes # (Manual) 3.4 (1.5-3.5) 10^3/uL Monocytes # (Manual) 0.7 (0.0-1.0) 10^3/uL Eosinophils # (Manual) 0.2 (0-0.7) 10^3/uL Basophils # (Manual) 0.1 (0-0.1) 10^3/uL Nucleated RBCs Not Reportable Differential Comment MANUAL DIFFERENTIAL Platelet Estimate NORMAL (130-450,000) (NORMAL) RBC Morph Micro Appear NORMAL APPEARANCE (NORMAL) Sodium 138 (135-145) mmol/L Potassium 3.7 (3.5-5.0) mmol/L Chloride 104 (101-111) mmol/L Carbon Dioxide 28 (21-32) mmol/L Anion Gap 6.0 (6-13) BUN 11 (6-20) mg/dL Creatinine 0.6 (0.4-1.0) mg/dL Estimated GFR (MDRD) 110 (>89) Glucose 131 H (70-100) mg/dL Calcium 8.6 (8.5-10.3) mg/dL Ionized Calcium NO Total Bilirubin 0.3 (0.2-1.0) mg/dL AST 18 (10-42) IU/L ALT 16 (10-60) IU/L Alkaline Phosphatase 55 (42-121) IU/L Total Protein 6.0 L (6.7-8.2) g/dL Albumin 2.7 L (3.2-5.5) g/dL Globulin 3.3 (2.1-4.2) g/dL Albumin/Globulin Ratio 0.8 L (1.0-2.2) - Current Medications Current Medications: Current Medications Generic Name Dose Route Start Last Admin Trade Name Freq PRN Reason Stop Dose Admin Acetaminophen 650 mg 03/22/17 07:23 03/25/17 07:21 Tylenol PO 650 mg Q4HR PRN Administration Pain 1 to 4 Albuterol 2.5 mg 03/22/17 09:29 03/24/17 04:45 INH 2.5 mg RTQ4H PRN Administration Wheezing Albuterol/Ipratropium 3 ml 03/22/17 09:29 03/27/17 18:25 Duoneb INH 3 ml RTQID PRN Administration Shortness of Air/Wheezing Alprazolam 0.25 mg 03/22/17 09:28 03/26/17 18:50 Xanax PO 0.25 mg Q4HR PRN Administration Anxiety Famotidine 20 mg 03/22/17 09:00 03/28/17 08:59 Pepcid PO 20 mg DAILY BRYANT Administration Piperacillin Sod/Tazobactam 100 mls @ 25 mls/hr 03/27/17 10:00 03/28/17 02:16 Sod 3.375 gm/ Sodium Chloride IV 25 mls/hr Q8H BRYANT Administration Ibuprofen 600 mg 03/27/17 12:00 03/28/17 05:05 Motrin PO 600 mg Q6HR BRYANT Administration Lidocaine 1 patch 03/25/17 18:25 03/25/17 19:57 Lidoderm Patch TOP 1 patch DAILY PRN Administration PAIN Nicotine 1 patch 03/22/17 10:00 03/28/17 07:54 Nicoderm TOP Not Given DAILY BRYANT Ondansetron HCl 4 mg 03/22/17 07:23 03/24/17 21:12 Zofran Inj IVP 4 mg Q6HR PRN Administration Nausea / Vomiting Oxycodone HCl 5 mg 03/22/17 07:23 03/28/17 00:06 Roxicodone PO 5 mg Q4HR PRN Administration Pain 5 to 7 Oxycodone HCl 10 mg 03/24/17 08:31 03/28/17 09:00 Roxicodone PO 10 mg Q4HR PRN Administration PAIN Sodium Chloride 10 ml 03/22/17 07:23 03/27/17 18:16 Normal Saline Flush 0.9% IVP 10 ml PRN PRN Administration NEEDED PER PROVIDER ORDERS Sodium Chloride 10 ml 03/22/17 14:00 03/28/17 06:46 Normal Saline Flush 0.9% IVP 10 ml Q8HR BRYANT Administration Sodium Phosphate 250 mg 03/25/17 08:00 03/28/17 08:59 K-Phos Neutral PO 250 mg TIDWM BRYANT Administration - Physical Exam Wound/Incisions: positive: Healing well, Dressing dry and intact (CANDIDO dressing with out any drainage), No drainage General Appearance: positive: No acute distress, Alert Respiratory: positive: Chest non-tender, No respiratory distress, Breath sounds nml. negative: Wheezes Cardiovascular: positive: Regular rate & rhythm, No murmur Abdomen: positive: Nml bowel sounds, No distention, Tenderness (right lower quadrent. without guarding or rebound.). negative: Guarding, Rebound, Mass Skin: positive: Color nml, No rash, Warm, Dry Neurologic/Psychiatric: positive: Oriented x3, Mood/affect nml (excoted about going home) Impression/Plan - Problem List Problem List: S/P TG with BS adn left oophorectomy S/P Laproscopic drainage of pelvic Hematomas abscess White count normalizing. pain improved culture sensitive to antibiotics. Will Discharge to home on Augmentin and flagel. pt will continue on with Motrin Oxycodone
--- NOTE | 2017-03-28 10:01 | DISCHARGE SUMMARY ---
DATE OF ADMISSION: 03/22/2017 DATE OF DISCHARGE: 03/28/2017 ADMITTING DIAGNOSES 1. Pelvic hematoma with infection. 2. Status post total abdominal hysterectomy with bilateral salpingectomy, left salpingo-oophorectomy, and cystoscopy. DISCHARGE DIAGNOSES 1. Pelvic hematoma with infection. 2. Status post total abdominal hysterectomy with bilateral salpingectomy, left salpingo-oophorectomy, and cystoscopy. PROCEDURES: Laparoscopic irrigation of pelvic hematomas and placement of Steve -Levy drains in the cul-de-sac, as well as the right adnexal area. PRESENTING HISTORY: The patient is a 41-year-old female, 4, para 4, who was noted to have an acute onset of abdominal pain in the lower pelvis. She was status post a total abdominal hysterectomy with bilateral salpingectomy and left oophorectomy with cystoscopy. She had done well until the morning of admission, at which time at roughly 4:00 in the morning she developed severe pelvic pain. The pain got progressively worse. She had a CT in the ER, which showed evidence of a 5 cm hematoma in the pelvis, as well as an 8 cm in the right adnexal area. For this reason, she was admitted and was taken to the operating room. Her examination showed marked tenderness and rebound in the lower pelvis. Her white count was noted to be 19,000 on admission. LABORATORIES: CBC on admission showed a white count of 19,000. She had her followup CBC on the that showed a white count of 15.8. The white count fell to a marilee on the at 13.7, at which time she was changed to oral antibiotics and then her white count rebounded to a maximum of 16.9. This morning, her CBC shows a white count of 12. Her hemoglobin reached a marilee of 7.5, she received 2 units of packed cells and it rebounded to 11.4. Throughout her hospital stay, she had difficulty with some hypokalemia, which was treated with oral potassium. On discharge today her hypokalemia as well as hyponatremia has resolved. HOSPITAL COURSE: The patient was admitted and taken to the operating room, at which time a laparoscopy was performed with irrigation of the pelvic clots. There was no evidence of any active bleeding. Two Steve-Vic were placed, both in the left and right lower quadrants. The procedure was then terminated. During her postoperative course, she was placed on Zosyn as well as Flagyl for antibiotic coverage. She had cultures performed on the pelvic fluid, which grew out Strep sanguis. It was sensitive to ampicillin, ceftriaxone, clindamycin, erythromycin, levofloxacin, penicillin-G, and vancomycin. It was resistant to tetracycline. Because of this, she was changed to Levaquin. Following this, her white count rebounded and because of this, she was changed back to Zosyn. She responded quite well to Zosyn. She is being discharged to home today on Augmentin 875 mg p.o. b.i.d. She is also being placed back on her Flagyl 500 mg q.i.d. Her other discharge medications are those of oxycodone, which she had from a previous visit, as well as Motrin. She is instructed to call if she should develop increased pain, chills or fevers. She is instructed to follow up in the clinic on Wednesday. JOB #: [id number] EXT JOB #:[id number] MTDD
--- NOTE | 2017-03-28 10:24 | PROVIDER PROGRESS NOTE ---
Assessment/Plan - Problem List (1) Intra-abdominal abscess post-procedure Qualifiers: Encounter type: subsequent encounter Qualified Code(s): T81.4XXD - Infection following a procedure, subsequent encounter; K65.1 - Peritoneal abscess Assessment/Plan: Patient had a hysterectomy and left oopherectomy on 03/17/17 and was discharged home on 04/07 then returned due to increasing abdominopelvic pain and was found to have leukocytosis with CT findings suspicious for abscess. patient was taken to OR and underwent Laprocscopic drainage of pelvic Hematoma/abcess we were consulted for medical management. Patients pain has improved but WBC continues to rise from 13.7 to 16.1 CANDIDO tube removed Manager Sustainability is following Peritoneal fluid culture is growing strep sanguis which is susceptible to levaquin, IV zosyn and flagyl discontinued started on levaquin x 2 days but patients with worsening WBC up to 16.9 switched back to zosyn IV x1 day and WBC down to 12.6 switched to PO augmentin and discharge home today Patient improved Discharge home on PO augmentin x10 days (2) Anemia Assessment/Plan: Hb dropped from 10.2 down to 7.5 on 03/24/17 Patient did have hematoma along with abscess and with multiple surgical procedures This is likely blood loss anemia Patient transfused 2 units of PRBCs Hb improved to 11.4 Stable for discharge (3) Hypokalemia Assessment/Plan: Resolved (4) Hypocalcemia Assessment/Plan: Resolved (5) HTN (hypertension) Qualifiers: Hypertension type: essential hypertension Qualified Code(s): I10 - Essential (primary) hypertension Assessment/Plan: Patient had periop HTN Not on on any antihypertensives at home BP continues to be elevated on clonidine prn Patient will need outpatient workup for hypertension once she has recovered from this acute illness (6) Asthma Assessment/Plan: Controlled on duonebs prn in the hospital Stable (7) Tobacco abuse Assessment/Plan: Advised to quit smoking Nicotine patch - Current Meds Current Meds: Current Medications Generic Name Dose Route Start Last Admin Trade Name Freq PRN Reason Stop Dose Admin Acetaminophen 650 mg 03/22/17 07:23 03/25/17 07:21 Tylenol PO 650 mg Q4HR PRN Administration Pain 1 to 4 Albuterol 2.5 mg 03/22/17 09:29 03/24/17 04:45 INH 2.5 mg RTQ4H PRN Administration Wheezing Albuterol/Ipratropium 3 ml 03/22/17 09:29 03/27/17 18:25 Duoneb INH 3 ml RTQID PRN Administration Shortness of Air/Wheezing Alprazolam 0.25 mg 03/22/17 09:28 03/26/17 18:50 Xanax PO 0.25 mg Q4HR PRN Administration Anxiety Famotidine 20 mg 03/22/17 09:00 03/28/17 08:59 Pepcid PO 20 mg DAILY BRYANT Administration Piperacillin Sod/Tazobactam 100 mls @ 25 mls/hr 03/27/17 10:00 03/28/17 09:04 Sod 3.375 gm/ Sodium Chloride IV 25 mls/hr Q8H BRYANT Administration Ibuprofen 600 mg 03/27/17 12:00 03/28/17 05:05 Motrin PO 600 mg Q6HR BRYANT Administration Lidocaine 1 patch 03/25/17 18:25 03/25/17 19:57 Lidoderm Patch TOP 1 patch DAILY PRN Administration PAIN Nicotine 1 patch 03/22/17 10:00 03/28/17 07:54 Nicoderm TOP Not Given DAILY BRYANT Ondansetron HCl 4 mg 03/22/17 07:23 03/24/17 21:12 Zofran Inj IVP 4 mg Q6HR PRN Administration Nausea / Vomiting Oxycodone HCl 5 mg 03/22/17 07:23 03/28/17 00:06 Roxicodone PO 5 mg Q4HR PRN Administration Pain 5 to 7 Oxycodone HCl 10 mg 03/24/17 08:31 03/28/17 09:00 Roxicodone PO 10 mg Q4HR PRN Administration PAIN Sodium Chloride 10 ml 03/22/17 07:23 03/27/17 18:16 Normal Saline Flush 0.9% IVP 10 ml PRN PRN Administration NEEDED PER PROVIDER ORDERS Sodium Chloride 10 ml 03/22/17 14:00 03/28/17 06:46 Normal Saline Flush 0.9% IVP 10 ml Q8HR BRYANT Administration Sodium Phosphate 250 mg 03/25/17 08:00 03/28/17 08:59 K-Phos Neutral PO 250 mg TIDWM BRYANT Administration - Lab Result Lab results reviewed: Yes Fish Bone Diagrams: 09/10/17 05:01 03/28/17 05:01 - Diagnostic Imaging Results Diagnostic Imaging Results: Final report reviewed - Additional Planning Condition/Complexity: Improved My Orders: My Active Orders 03/27/17 10:00 Piperacillin/Tazobactam [Zosyn] 3.375 gm Sodium Chloride 0.9% Minibag [Normal Saline 0.9% Minibag] 100 ml IV Q8H 03/27/17 12:00 Ibuprofen [Motrin] 600 mg PO Q6HR Consult/Specialty: Obstetrics Plan Discussed with:: Patient Time Spent: 31-60 minutes Subjective - Subjective Patient Reports: Feeling Better, Resting Comfortably (Patient excited about going home. She feels much better. She is still having some mild abdominal pain but it is improved and controlled.) Objective Vital Signs: Vital Signs - 24 hr 03/27/17 03/27/17 03/27/17 13:00 15:26 18:25 Temperature 36.8 C 37.0 C Heart Rate 92 Heart Rate [ 88 80 Brachial] Respiratory 18 18 18 Rate Blood Pressure 146/85 H 132/87 H [Left Brachial artery] Blood Pressure [Right Brachial artery] O2 Saturation 95 95 03/27/17 03/28/17 03/28/17 20:41 01:00 05:00 Temperature 36.9 C 36.9 C 36.8 C Heart Rate Heart Rate [ 88 88 78 Brachial] Respiratory 20 16 16 Rate Blood Pressure 140/81 H 120/80 [Left Brachial artery] Blood Pressure 139/79 H [Right Brachial artery] O2 Saturation 98 94 96 03/28/17 07:39 Temperature 36.6 C Heart Rate Heart Rate [ 89 Brachial] Respiratory 18 Rate Blood Pressure 138/76 H [Left Brachial artery] Blood Pressure [Right Brachial artery] O2 Saturation 95 Oxygen O2 Source Room air I&O (Last 24 Hrs): Intake and Output Totals x24h 03/26/17 03/27/17 03/28/17 23:59 23:59 23:59 Intake Total 1120 1630 1180 Output Total 25 Balance 1095 1630 1180 General: Alert, Oriented x3, Cooperative, No acute distress HEENT: Atraumatic, PERRLA, EOMI, Mucous membr. moist/pink Neck: Supple, No JVD, No thyromegaly, +2 carotid pulse wo bruit, No LAD Lymphatic: no adenopathy Neuro: Alert, Non Focal, CN 2-12 Grossly Intact, Oriented Times 3 Cardiovascular: Regular rate, Normal S1, Normal S2, No murmurs Respiratory: Chest non-tender, No respiratory distress, Breath sounds nml Abdomen: Normal bowel sounds, Soft, Other (Mild tenderness in RLQ but improved) Extremities: No clubbing, No cyanosis, No edema, Normal pulses Skin: No rashes, No breakdown - Results Results: Laboratory Results WBC 12.0 x10^3/uL (4.8-10.8) H 03/28/17 05:01 RBC 3.57 10^6/uL (4.20-5.40) L 03/28/17 05:01 Hgb 10.7 g/dL (12.0-16.0) L 03/28/17 05:01 Hct 31.3 % (37.0-47.0) L 03/28/17 05:01 MCV 87.8 fL (81.0-99.0) 03/28/17 05:01 MCH 30.1 pg (27.0-31.0) 03/28/17 05:01 MCHC 34.3 g/dL (32.0-36.0) 03/28/17 05:01 RDW 13.7 % (12.0-15.0) 03/28/17 05:01 Plt Count 373 10^3/uL (130-450) 03/28/17 05:01 MPV 7.5 fL (7.9-10.8) L 03/28/17 05:01 Neut # Not Reportable 03/28/17 05:01 Lymph # Not Reportable 03/28/17 05:01 [place] # Not Reportable 03/28/17 05:01 Eos # Not Reportable 03/28/17 05:01 Baso # Not Reportable 03/28/17 05:01 Absolute Nucleated RBC Not Reportable 03/28/17 05:01 Total Counted 100 03/28/17 05:01 Band Neuts % (Manual) 3 % (0-10) 03/28/17 05:01 Metamyelocytes % 5 % (-0) H 03/28/17 05:01 Myelocytes % 5 % (-0) H 03/28/17 05:01 Neutrophils # (Manual) 6.4 10^3/uL (1.5-6.6) 03/28/17 05:01 Lymphocytes # (Manual) 3.4 10^3/uL (1.5-3.5) 03/28/17 05:01 Monocytes # (Manual) 0.7 10^3/uL (0.0-1.0) 03/28/17 05:01 Eosinophils # (Manual) 0.2 10^3/uL (0-0.7) 03/28/17 05:01 Basophils # (Manual) 0.1 10^3/uL (0-0.1) 03/28/17 05:01 Nucleated RBCs Not Reportable 03/28/17 05:01 Differential Comment MANUAL DIFFERENTIAL 03/28/17 05:01 Platelet Estimate NORMAL (130-450,000) (NORMAL) 03/28/17 05:01 RBC Morph Micro Appear NORMAL APPEARANCE (NORMAL) 03/28/17 05:01 VBG pH 7.417 (7.31-7.41) H 03/25/17 05:29 Ionized Calcium 1.08 mmol/L (1.15-1.33) L 03/25/17 05:29 Sodium 138 mmol/L (135-145) 03/28/17 05:01 Potassium 3.7 mmol/L (3.5-5.0) 03/28/17 05:01 Chloride 104 mmol/L (101-111) 03/28/17 05:01 Carbon Dioxide 28 mmol/L (21-32) 03/28/17 05:01 Anion Gap 6.0 (6-13) 03/28/17 05:01 BUN 11 mg/dL (6-20) 03/28/17 05:01 Creatinine 0.6 mg/dL (0.4-1.0) 03/28/17 05:01 Estimated GFR (MDRD) 110 (>89) 03/28/17 05:01 Glucose 131 mg/dL (70-100) H 03/28/17 05:01 POC Whole Bld Glucose 115 mg/dL (70 - 100) H 03/24/17 07:44 Lactic Acid 0.9 mmol/L (0.5-2.2) 03/21/17 22:26 Calcium 8.6 mg/dL (8.5-10.3) 03/28/17 05:01 Ionized Calcium NO 03/28/17 05:01 Phosphorus 2.9 mg/dL (2.5-4.6) 03/25/17 05:29 Magnesium 1.6 mg/dL (1.7-2.8) L 03/25/17 05:29 Total Bilirubin 0.3 mg/dL (0.2-1.0) 03/28/17 05:01 AST 18 IU/L (10-42) 03/28/17 05:01 ALT 16 IU/L (10-60) 03/28/17 05:01 Alkaline Phosphatase 55 IU/L (42-121) 03/28/17 05:01 Total Protein 6.0 g/dL (6.7-8.2) L 03/28/17 05:01 Albumin 2.7 g/dL (3.2-5.5) L 03/28/17 05:01 Globulin 3.3 g/dL (2.1-4.2) 03/28/17 05:01 Albumin/Globulin Ratio 0.8 (1.0-2.2) L 03/28/17 05:01 Lipase < 10 U/L (22-51) L 03/21/17 22:26 Ur Specific [place] 1.020 (1.002-1.030) 03/21/17 23:18 Urine HCG, Qual NEGATIVE 03/21/17 23:18 Blood Type O POSITIVE 03/22/17 05:36 Antibody Screen NEGATIVE 03/22/17 05:36 Crossmatch IS Only See Detail 03/22/17 05:36 - Procedures Procedures: Procedures APPLICATION OF SPLINT (01/13/13) CARPAL TUNNEL RELEASE (04/06/13) EXTRACTION OF ENDOMETRIUM, ENDO (02/16/17) INSPECTION OF BLADDER, ENDO (03/17/17) RELEASE GREATER OMENTUM, PERCUTANEOUS ENDOSCOPIC APPROACH (02/16/17) RESECTION OF BILATERAL FALLOPIAN TUBES, OPEN APPROACH (03/17/17) RESECTION OF CERVIX, OPEN APPROACH (03/17/17) RESECTION OF LEFT OVARY, OPEN APPROACH (03/17/17) RESECTION OF UTERUS, OPEN APPROACH (03/17/17)
[2017-03-28 12:32] VITALS: BP 152/88
[2017-03-28] MEDS: IPRATROPIUM/ALBUTEROL 3 ML NEB INH PRN (12:49)
--- NOTE | 2017-03-28 13:27 | Discharge Plan ---
Discharge Plan Disposition: Home, Self Care Condition: Stable Prescriptions: Amox/Clav 875/125 [Augmentin] 1 each PO Q12H #20 tablet Metronidazole [Flagyl] 500 mg PO TID #30 tablet Diet: Regular Activity Restrictions: Activity as Tolerated Weight Bearing: Full Weight Instruction Topics: Metronidazole tablets or capsules, Amoxicillin Clavulanic Acid tablets No Smoking: If you smoke, Please STOP! Call for help. Follow-up with: Simeon Daniel MD [Provider Admit Priv/Credential] -
== END 2017-03-28 13:50 | disposition home or self-care (01) | DRG 857 ==
LOC: ED 20:40 → MS2 03-22 03:38 → ICU 03-22 06:03 → MS2 03-24 14:29
PROVIDERS: ADMIT Obstetrics & Gynecology; ATTEND Obstetrics & Gynecology
PROC: 0W9J40Z Drainage of Pelvic Cavity with Drainage Device, Percutaneous Endoscopic Approach (ICD-10-PCS; principal; 2017-03-22 03:35)
PROC: 30233N1 Transfusion of Nonautologous Red Blood Cells into Peripheral Vein, Percutaneous Approach (ICD-10-PCS; 2017-03-24)
DX: T81.4XXA Infection following a procedure, initial encounter (principal); N99.840 Postprocedural hematoma of a genitourinary system organ or structure following a genitourinary system procedure; E87.1 Hypo-osmolality and hyponatremia; N73.8 Other specified female pelvic inflammatory diseases; Y83.6 Removal of other organ (partial) (total) as the cause of abnormal reaction of the patient, or of later complication, without mention of misadventure at the time of the procedure; B95.4 Other streptococcus as the cause of diseases classified elsewhere; E87.6 Hypokalemia; D50.0 Iron deficiency anemia secondary to blood loss (chronic); E83.39 Other disorders of phosphorus metabolism; E83.51 Hypocalcemia; J45.909 Unspecified asthma, uncomplicated; I10 Essential (primary) hypertension; F17.210 Nicotine dependence, cigarettes, uncomplicated; E66.01 Morbid (severe) obesity due to excess calories; T80.89XA Other complications following infusion, transfusion and therapeutic injection, initial encounter; R06.02 Shortness of breath; R06.2 Wheezing; Y84.8 Other medical procedures as the cause of abnormal reaction of the patient, or of later complication, without mention of misadventure at the time of the procedure; Y92.239 Unspecified place in hospital as the place of occurrence of the external cause; Z16.29 Resistance to other single specified antibiotic; Z68.37 Body mass index [BMI] 37.0-37.9, adult; Z87.01 Personal history of pneumonia (recurrent); Z87.442 Personal history of urinary calculi; Z90.710 Acquired absence of both cervix and uterus; Z90.79 Acquired absence of other genital organ(s); Z90.721 Acquired absence of ovaries, unilateral; Z71.6 Tobacco abuse counseling
CPT/HCPCS: 36415; 74177; 80053; 81025; 82330; 83605; 83690; 83735; 84100; 85014; 85018; 85025; 86850; 86900; 86901; 86920; 87070; 87077; 87150; 87205; 94640; 96361; 96365; 96375; 96376; 99284; 99285

== ENCOUNTER 2017-03-30 20:08 | Emergency (ER) | payer BC ==
--- NOTE | 2017-03-30 21:03 | ED Physician Documentation ---
History of Present Illness - Stated complaint Stated Complaint: VOMITING - Chief complaint Chief Complaint: Abd Pain - History obtained from History obtained from: Patient - History of Present Illness Timing: Today Pain level max: 10 Pain level now: 10 Improved by: rest Worsened by: movement, palpation Associated symptoms: nausea - Additonal information Additional information: TG end of last month (February) at [facility], returned 03/21 due to worsening abdominal pain and found to have two pelvic abscesses, admitted to [facility] and had surgery to drain the abscesses and given IV antibiotics, discharged 03/28. She returns at this time due to worsening lower abdominal pain and nausea Review of Systems Constitutional: reports: Reviewed and negative Eyes: reports: Reviewed and negative Ears: reports: Reviewed and negative Nose: reports: Reviewed and negative Throat: reports: Reviewed and negative Cardiac: reports: Reviewed and negative Respiratory: reports: Dyspnea, Wheezing GI: reports: Abdominal Pain, Nausea, Vomiting. denies: Constipation, Diarrhea : reports: Reviewed and negative Skin: reports: Reviewed and negative Musculoskeletal: reports: Reviewed and negative Neurologic: reports: Reviewed and negative PD PAST MEDICAL HISTORY - Past Medical History Cardiovascular: None Respiratory: Asthma Endocrine/Autoimmune: None GI: None, Cholelithiasis : None HEENT: None Psych: None Musculoskeletal: None Derm: None - Past Surgical History Past Surgical History: Yes Ortho: Carpal Tunnel surgery /TREER: section - Present Medications Home Medications: Ambulatory Orders Medication Instructions Recorded Confirmed Ibuprofen [Motrin] 800 mg PO Q8H PRN 03/15/17 03/22/17 Bupropion HCl [Bupropion HCl Sr] 150 mg PO BID 03/17/17 03/22/17 Albuterol 2.5 mg INH RTTID neb 03/20/17 03/22/17 Alprazolam [Xanax] 0.25 mg PO Q4HR PRN #12 tablet 03/20/17 03/22/17 Nicotine 14 mg Patch [Nicoderm] 1 patch TOP DAILY #14 patch 03/20/17 03/22/17 oxyCODONE [Roxicodone] 5 mg PO Q4HR PRN #20 tablet 03/20/17 03/22/17 Amox/Clav 875/125 [Augmentin] 1 each PO Q12H #20 tablet 03/28/17 Metronidazole [Flagyl] 500 mg PO TID #30 tablet 03/28/17 - Allergies Allergies/Adverse Reactions: Allergies Allergy/AdvReac Type Severity Reaction Status Date / Time No Known Drug Allergies Allergy Verified 03/15/17 12:34 - Social History Does the pt smoke?: Yes Smoking Status: Never smoker Does the pt have substance abuse?: No PD ED PE NORMAL - Vitals Vital signs reviewed: Yes - General General: Alert and oriented X 3, Well developed/nourished, Other (obvious severe painful distress as well as moderate respiratory distress) - HEENT HEENT: PERRL, EOMI, Moist mucous membranes - Neck Neck: Supple, no meningeal sign - Cardiac Cardiac: No murmur - Abdomen Abdomen: Soft, Non distended, Other (TTP across lower abdomen with guarding) - Back Back: No CVA TTP - Derm Derm: Normal color, Other (diaphoretic) - Extremities Extremities: No edema - Neuro Neuro: Alert and oriented X 3 PD ED PE EXPANDED - Cardiac Cardiac: Tachy, Regular Rhythm - Respiratory Respiratory: Distress, Labored, Wheezing, Decreased breath sounds Results - Vitals Vitals: Vital Signs - 24 hr 03/30/17 03/30/17 03/30/17 20:21 21:20 21:45 Temperature 36.6 C Heart Rate 112 H 108 H 99 Respiratory 22 20 16 Rate Blood Pressure 131/95 H 135/86 H O2 Saturation 97 99 03/30/17 03/31/17 03/31/17 22:22 00:25 04:16 Temperature 36.9 C Heart Rate 109 H 93 76 Respiratory 16 18 20 Rate Blood Pressure 144/82 H 142/88 H 114/58 L O2 Saturation 94 97 96 03/31/17 06:21 Temperature 36.2 C L Heart Rate 84 Respiratory 15 Rate Blood Pressure 100/57 L O2 Saturation 97 Oxygen O2 Source Nasal cannula Oxygen Flow Rate 2 - Labs Labs: Laboratory Tests 03/30/17 03/30/17 03/30/17 00:35 21:22 21:22 WBC 21.1 H RBC 4.58 Hgb 12.9 Hct 39.5 MCV 86.1 MCH 28.2 MCHC 32.7 RDW 13.8 Plt Count 588 H MPV 8.2 Neut # Not Reportable Lymph # Not Reportable [place] # Not Reportable Eos # Not Reportable Baso # Not Reportable Absolute Nucleated RBC Not Reportable Total Counted 100 Band Neuts % (Manual) 2 Reactive Lymphs % (Man) 1 Neutrophils # (Manual) 18.4 H Lymphocytes # (Manual) 1.3 L Monocytes # (Manual) 1.1 H Eosinophils # (Manual) 0.2 Basophils # (Manual) 0.2 H Nucleated RBCs Not Reportable WBC Morphology 2+ TOXIC GRANULATION Platelet Estimate INCREASED (>450,000) Platelet Morphology 1+ LARGE PLATELETS RBC Morph Micro Appear 1+ POLYCHROMASIA Sodium 137 Potassium 3.5 Chloride 100 L Carbon Dioxide 27 Anion Gap 10.0 BUN 11 Creatinine 0.6 Estimated GFR (MDRD) 110 Glucose 161 H Lactic Acid Calcium 9.3 Total Bilirubin 0.5 AST 20 ALT 19 Alkaline Phosphatase 66 B-Natriuretic Peptide Total Protein 8.0 Albumin 3.5 Globulin 4.5 H Albumin/Globulin Ratio 0.8 L Lipase 18 L Urine Color YELLOW Urine Clarity CLEAR Urine pH 6.0 Ur Specific [place] 1.010 Urine Protein NEGATIVE Urine Glucose (UA) NEGATIVE Urine Ketones 15 H Urine Occult Blood NEGATIVE Urine Nitrite NEGATIVE Urine Bilirubin NEGATIVE Urine Urobilinogen 0.2 (NORMAL) Ur Leukocyte Esterase NEGATIVE Ur Microscopic Review NOT INDICATED Urine Culture Comments NOT INDICATED 03/30/17 03/30/17 21:22 21:32 WBC RBC Hgb Hct MCV MCH MCHC RDW Plt Count MPV Neut # Lymph # [place] # Eos # Baso # Absolute Nucleated RBC Total Counted Band Neuts % (Manual) Reactive Lymphs % (Man) Neutrophils # (Manual) Lymphocytes # (Manual) Monocytes # (Manual) Eosinophils # (Manual) Basophils # (Manual) Nucleated RBCs WBC Morphology Platelet Estimate Platelet Morphology RBC Morph Micro Appear Sodium Potassium Chloride Carbon Dioxide Anion Gap BUN Creatinine Estimated GFR (MDRD) Glucose Lactic Acid 0.9 Calcium Total Bilirubin AST ALT Alkaline Phosphatase B-Natriuretic Peptide 16 Total Protein Albumin Globulin Albumin/Globulin Ratio Lipase Urine Color Urine Clarity Urine pH Ur Specific [place] Urine Protein Urine Glucose (UA) Urine Ketones Urine Occult Blood Urine Nitrite Urine Bilirubin Urine Urobilinogen Ur Leukocyte Esterase Ur Microscopic Review Urine Culture Comments - Rads (name of study) CT A/P Radiology: Prelim report reviewed, See rad report PD MEDICAL DECISION MAKING - ED course Complexity details: reviewed old records, reviewed results, re-evaluated patient , considered differential, d/w patient ED course: D/W Dr. Lind who then came to ED and evaluated patient. She planned to admit patient to [facility], but she discussed the case with Dr. Alvarez (on-call surgery) , who recommended transfer to facility that can perform IR drainage. I then discussed the case with Dr. Chidi Babb (on-call wood milling machine operator at [facility]), who accepts transfer to [facility], recommends Zosyn IV. He asks that I hold patient in [facility] ED until 6 AM Departure - Departure Disposition: 02 Transfer Acute Care Hosp Clinical Impression: Small bowel obstruction Intra-abdominal abscess post-procedure Qualifiers: Encounter type: initial encounter Qualified Code(s): T81.4XXA - Infection following a procedure, initial encounter Condition: Stable Discharge Date/Time: 03/31/17 06:57
[2017-03-30] MEDS ORDERED: IPRATROPIUM/ALBUTEROL 3 ML NEB INH STA (21:09)
[2017-03-30] MEDS ORDERED: HYDROmorphone 1 MG/ML SYRINGE IVP STA ×2 (21:10→22:01)
[2017-03-30] MEDS ORDERED: ONDANSETRON 4 MG/2 ML VIAL IVP STA (21:10)
[2017-03-30] MEDS ORDERED: HYDROmorphone 1 MG/ML SYRINGE ONE ×2 (21:22→22:14)
[2017-03-30] MEDS ORDERED: ONDANSETRON 4 MG/2 ML VIAL ONE (21:22)
[2017-03-30] MEDS ORDERED: IPRATROPIUM/ALBUTEROL 3 ML NEB INH ONE (21:28)
[2017-03-30 21:38] LABS: BASOPHILS % (AUTO) 0.3 %; EOSINOPHILS % (AUTO) 0.4 %; HCT - HEMATOCRIT 39.5 % (37.0-47.0); HGB - HEMOGLOBIN 12.9 g/dL (12.0-16.0); LYMPHOCYTES % (AUTO) 11.1 %; MEAN CORPUSCULAR HEMOGLOBIN 28.2 pg (27.0-31.0); MEAN CORPUSCULAR HGB CONC 32.7 g/dL (32.0-36.0); MEAN CORPUSCULAR VOLUME 86.1 fL (81.0-99.0); MEAN PLATELET VOLUME 8.2 fL (7.9-10.8); MONOCYTES % (AUTO) 5.9 %; NEUTROPHILS % (AUTO) 82.3 %; RED BLOOD COUNT 4.58 10^6/uL (4.20-5.40); RED CELL DISTRIBUTION WIDTH 13.8 % (12.0-15.0); UNCORRECTED WHITE BLOOD COUNT 21.1 x10^3/uL; WHITE BLOOD COUNT 21.1 x10^3/uL (4.8-10.8)
[2017-03-30 21:40] LABS: ALBUMIN/GLOBULIN RATIO 0.8 (1.0-2.2); BILIRUBIN,TOTAL 0.5 mg/dL (0.2-1.0); CALCIUM 9.3 mg/dL (8.5-10.3); CREATININE 0.6 mg/dL (0.4-1.0); POTASSIUM 3.5 mmol/L (3.5-5.0)
[2017-03-30] MEDS ORDERED: IOPAMIDOL-300 100 ML VIAL IVP ONE (22:08)
[2017-03-30 22:09] LABS: BAND NEUTROPHILS % (MANUAL) 2 %; BASOPHILS % (MANUAL) 1 %; EOSINOPHILS % (MANUAL) 1 %; LYMPHOCYTES % (MANUAL) 5 %; NEUTROPHILS % (MANUAL) 85 %; TOTAL CELLS COUNTED 100
[2017-03-30 22:12] LABS: NP AUTO DIFFERENTIAL? YES; NP MAN DIFFERENTIAL? NO; PLATELET ESTIMATE, MANUAL INCREASED (>450,000) (NORMAL); PLATELET MORPHOLOGY 1+ LARGE PLATELETS (NORMAL); WBC MORPHOLOGY (MULTIPLE) 2+ TOXIC GRANULATION (NORMAL)
[2017-03-30] MEDS ORDERED: SODIUM CHLORIDE 0.9% 1,000 ML IV ONE (22:51)
[2017-03-30] MEDS ORDERED: SODIUM CHLORIDE 0.9% 1,000 ML IV STA (22:51)
--- NOTE | 2017-03-30 22:59 | CT Preliminary Report ---
Exam: CT Abdomen/Pelvis W/ IMPRESSION: 1. Distal small bowel obstruction with transition zone in the right lower quadrant closely associated with a 6.9 x 7.5 cm abscess. 2. Residual 2.1 cm rectovaginal fluid collection. 3. Trace perihepatic ascites. 4. Small left pleural effusion. [facility] SITE ID: [id number]
--- NOTE | 2017-03-30 23:00 | XRAY Preliminary Report ---
Exam: XR Chest 1 View IMPRESSION: Normal single view chest. [facility] SITE ID: [id number]
--- NOTE | 2017-03-30 23:02 | CT Report ---
EXAM: CT ABDOMEN AND PELVIS EXAM DATE: 03/30/2017 10:11 PM. CLINICAL HISTORY: Abdominal pain COMPARISONS: 03/22/2017 CT. TECHNIQUE: Routine helical CT imaging was performed through the abdomen and pelvis. IV contrast: 100 mL Isovue-300. Enteric contrast: No. Reconstructions: Coronal and sagittal. In accordance with CT protocol optimization, one or more of the following dose reduction techniques w ere utilized for this exam: automated exposure control, adjustment of mA and/or KV based on patient s ize, or use of iterative reconstructive technique. FINDINGS: Lung Bases: Small left pleural effusion. Liver: No focal liver lesions. There is mild perihepatic ascites. Gallbladder/Bile Ducts: Unremarkable. Spleen: Normal. Pancreas: Normal. Adrenal Glands: Normal. Kidneys: Normal. No masses or hydronephrosis. Peritoneal Cavity/Bowel: There is a 6.9 x 7.5 cm rim-enhancing right lower quadrant fluid collection, previously 8.2 x 4.6 cm. No air is seen within the collection. Numerous moderately dilated small bow el loops seen with collapse of the terminal ileum adjacent to the fluid collection. There is divertic ulosis, no evidence of diverticulitis. Pelvic Organs: Previously seen rectovaginal fluid collection has significantly decreased in size. The re is a residual 2.1 x 1.6 cm right perirectal fluid collection. Vasculature: No aneurysms or other significant abnormality. Bones: No significant abnormality. Other: None. IMPRESSION: 1. Distal small bowel obstruction with transition zone in the right lower quadrant closely associated with a 6.9 x 7.5 cm abscess. 2. Residual 2.1 cm rectovaginal fluid collection. 3. Trace perihepatic ascites. 4. Small left pleural effusion. [facility] Referring Provider Line: [phone] SITE ID: [id number]
--- NOTE | 2017-03-30 23:03 | XRAY Report ---
EXAM: CHEST RADIOGRAPHY EXAM DATE: 03/30/2017 10:13 PM. CLINICAL HISTORY: Dyspnea. COMPARISON: 03/15/2017 chest x-ray. TECHNIQUE: 1 view. FINDINGS: Lungs/Pleura: No focal opacities evident. No pleural effusion. No pneumothorax. Mediastinum: Within exam limitations, cardiomediastinal contour is normal. Other: None. IMPRESSION: Normal single view chest. [facility] Referring Provider Line: [phone] SITE ID: [id number]
[2017-03-31] MEDS ORDERED: HYDROmorphone 1 MG/ML SYRINGE IVP STA ×4 (00:15→06:39)
[2017-03-31] MEDS ORDERED: ONDANSETRON 4 MG/2 ML VIAL IVP STA ×2 (00:15→06:39)
[2017-03-31] MEDS ORDERED: HYDROmorphone 1 MG/ML SYRINGE ONE ×5 (00:21→06:44)
[2017-03-31] MEDS ORDERED: ONDANSETRON 4 MG/2 ML VIAL ONE ×3 (00:22→06:44)
[2017-03-31] MEDS: SODIUM CHLORIDE 0.9% 1,000 ML IV STA ×2 (00:35→03:22)
[2017-03-31 00:42] LABS: BILIRUBIN,URINE NEGATIVE (NEGATIVE)
[2017-03-31 00:43] LABS: UA CHARGE (STRIP ONLY) YES; UR CULTURE IF IND NOT INDICATED
[2017-03-31] MEDS ORDERED: PIPERACILLIN/TAZOBACTAM 3.375 GM in SODIUM CHLORIDE 0.9% MINIBAG 100 ML IV STA (02:00)
--- NOTE | 2017-03-31 03:42 | CONSULTATION NOTE ---
DATE OF CONSULTATION: 03/30/2017 00:00:00 IDENTIFICATION: This is a 41-year-old G4, P4-0-0-4. HISTORY OF PRESENT ILLNESS: This is a patient of [facility] who has unfortunately roman s had complications from her recent gynecological surgery. She was referred from Dr. Chidi Gómez at [facility] for severe menometrorrhagia, as well as a fibroid uterus. The patient first under went a diagnostic hysteroscopy with D and C, as well as a laparoscopic lysis of adhesions on 02/17/20 17 secondary to a suspected 8 cm adnexal mass. Findings revealed a large fibroid uterus with a submuc osal fibroid. Pathology showed abundant hemorrhage with rare inactive endometrial fragments. The jose luis ent then underwent on 03/17/2017 a total abdominal hysterectomy, bilateral salpingectomy, left oophor ectomy and cystoscopy. EBL at that time was 300 mL. There were no complications, but the patient did have some labile hypertension, in which she was treated by the medicine team with clonidine and Vasot ec. The patient was discharged home on postoperative day #3, 03/20/2017. The patient unfortunately returned to [facility] on 03/21/2017 with complaints of abdom inal pain. She was noted to have a white count of 19.6 thousand, and a CT of the abdomen and pelvis w as significant for a right lower quadrant abscess measuring 8.2 x 4.7 x 8.0 cm, as well as another ab scess between the bladder and rectum measuring 5.1 x 4.2 cm. Colonic diverticula were seen. No defini tive diverticulitis. Appendix is not well seen. The patient was admitted to the hospital and started on Zosyn. That same day, the patient underwent a diagnostic laparoscopy with irrigation and drainage of her abscesses. She was then continued on IV antibiotics. A culture of the pelvic fluid revealed th at she was positive for Streptococcus sanguis, which was sensitive to ampicillin, ceftriaxone, clinda mycin, erythromycin, levofloxacin, linezolid, penicillin and vancomycin. It was only resistant to tet racycline. The patient did much better with a combination of Zosyn and Flagyl. The patient was finall y discharged to home on 03/28/2017 and was continued on Augmentin 875 mg b.i.d. and Flagyl 500 mg q.i .d. She was also given 2 units of packed red blood cells. She has called me more recently earlier this evening with complaints of nausea and vomiting. She stat es that she had some subtle nausea beginning yesterday on 03/29/2017 and has been increasingly worse. She states that at noon she had Rice Krispies and 6 chicken nuggets. Approximately an hour later, tim poon vomited the entire contents of her stomach. This vomiting continued until her returned home after work at 5:30. She states that the pain in her abdomen has been getting significantly worse. Tim poon denies any fevers or chills or vaginal bleeding. She is urinating well and had a bowel movement her e in the emergency department. Dr. Simmons saw the patient in the emergency department and workup has been significant for an elevated white count of 21.[address] of the abdomen and pelvis with IV contrast revealed a 6.9 x 7.5 cm ring enhancing right lower quadrant fluid collection, previously 8.2 x 4.6 cm. No air seen within the collection. Numerous moderately dilated small bowel loops seen with collapse of the terminal ileum adjacent to the fluid collection. There is diverticulosis. No vlad dence of diverticulitis. Previously seen rectovaginal fluid collection has significantly decreased in size. There is a residual 2.1 x 1.6 cm right perirectal fluid collection. Impression is a distal sma ll-bowel obstruction with transition zone in the right lower quadrant closely associated with a 6.9 x 7.5 cm abscess. Given these findings, I consulted the general surgeon on-call, Dr. Sindy Alvarez. Since the CT was not done with oral contrast and given the patient's history, she feels that this mo st likely is not a small-bowel obstruction, but an ileus. Furthermore, she would not recommend anothe r laparoscopic irrigation and drainage of the abscesses, as there would be significant adhesions lead ing to potentially more complications. In this patient, interventional radiology would probably be th e best method of taking care of the patient's abscess. The patient currently is extremely upset about having to return to the hospital and is extremely hesitant to proceed with another surgical procedur e given that there have been so many complications. She seems to be very willing to do a minimally in vasive procedure via Interventional Radiology. The patient is aware that unfortunately we do not have the interventional radiologist here at [facility] and she would need to be transferred to a [facility] facility. PAST MEDICAL HISTORY 1. Asthma. 2. Diverticulosis. 3. Hypertension. 4. Morbid obesity. PAST SURGICAL HISTORY 1. Right carpal tunnel release. 2. delivery x4. 3. Bilateral tubal sterilization. 4. Tonsillectomy. 5. Ear tubes. MEDICATIONS 1. Augmentin. 2. Flagyl. 3. Pain medications. 4. ProAir HFA p.r.n. ALLERGIES: NO KNOWN DRUG ALLERGIES. SOCIAL HISTORY: The patient states that she drinks a glass of wine occasionally. She does admit to ma rijuana consumption. The patient did consume tobacco, but due to her recent surgery, she has quit. 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 She is to [place]. Her children are all adults. PAST OBSTETRICAL HISTORY: Four term deliveries with bilateral tubal sterilization. PAST GYNECOLOGICAL HISTORY: Status post total abdominal hysterectomy, bilateral salpingectomy, left o ophorectomy, and cystoscopy on 03/22/2017. Complication of bilateral pelvic abscesses. FAMILY HISTORY: She denies any family history of breast cancer. REVIEW OF SYSTEMS: Negative unless otherwise stated. OBJECTIVE VITAL SIGNS: Temperature is 98.4, heart rate 93, blood pressure 142/88, respirations 18, O2 saturatio n is 97% on 2 liters of O2 via nasal cannula. GENERAL: The patient is an obese female who appears to be very tearful and anxious. She is alert and oriented x3. HEENT: Within normal limits. ABDOMEN: Shows no peritoneal signs. She has a well-healed vertical midline skin incision. She does roman ve small incisions in the abdomen bilaterally secondary to her CANDIDO drains placed at her most recent la paroscopic surgery. Her abdomen is not distended. LABORATORY: Labs show that she has a white count of 21.1 thousand, H and H of 12.9 and 39.5, platelet s of 588. Sodium 137, potassium 3.5, chloride 100, carbon dioxide is 27, BUN 11, creatinine 0.6. Steff mated GFR is 110, glucose 161, AST 20, ALT 19, lipase 18. Urine is significant for ketones, red blood cells, and moderate squamous cells. ASSESSMENT 1. A 41-year-old G4, P4-0-0-4. 2. Nausea and vomiting, most likely secondary to ileus. 3. Improved pelvic abscesses, but still significant in size. PLAN: I discussed with Dr. Haile Simmons my recommendations that we transfer the patient to a facility which has diagnostic radiology, particularly because the patient is so hesitant to have invasive surg noah and would opt to do more a conservative procedure. The patient should continue on antibiotics reg ardless of the place in which she gets treated. Recommend the patient to follow up with us at [facility] for followup of her pelvic abscesses, as well as recovery from her recent surger ies. JOB #: [id number] EXT JOB #:[id number]
[2017-03-31 06:22] VITALS: BP 100/57
== END 2017-03-31 06:57 | disposition short-term general hospital (02) ==
LOC: ED 20:08
DX: K56.60 Unspecified intestinal obstruction (principal); T81.4XXA Infection following a procedure, initial encounter
CPT/HCPCS: 36415; 71010; 74177; 80053; 81003; 83605; 83690; 83880; 85025; 94640; 96374; 96375; 96376; 99284; 99285; J1170; J7620; Q9967; 81001; 87086

== ENCOUNTER 2017-03-31 06:48 | Outpatient (CLI) | payer BC | END 2017-03-31 06:49 | disposition short-term general hospital (02) | LOC: EMS 06:48 | PROVIDERS: ATTEND Surgery | DX: R10.9 Unspecified abdominal pain (principal) | CPT/HCPCS: A0425; A0426 ==

== ENCOUNTER 2017-05-10 14:49 | Emergency (ER) | payer BC ==
[2017-05-10 15:22] LABS: BASOPHILS % (AUTO) 0.5 %; EOSINOPHILS # (AUTO) 0.1 10^3/uL (0.0-0.7); EOSINOPHILS % (AUTO) 1.2 %; HCT - HEMATOCRIT 40.5 % (37.0-47.0); HGB - HEMOGLOBIN 13.4 g/dL (12.0-16.0); LYMPHOCYTES # (AUTO) 3.8 10^3/uL (1.5-3.5); LYMPHOCYTES % (AUTO) 38.1 %; MEAN CORPUSCULAR HEMOGLOBIN 28.7 pg (27.0-31.0); MEAN PLATELET VOLUME 8.6 fL (7.9-10.8); MONOCYTES # (AUTO) 0.6 10^3/uL (0.0-1.0); MONOCYTES % (AUTO) 6.5 %; NEUTROPHILS # (AUTO) 5.3 10^3/uL (1.5-6.6); NEUTROPHILS % (AUTO) 53.7 %; NUCLEATED RED BLOOD CELLS AUTO 0.1 /100WBC; RED BLOOD COUNT 4.66 10^6/uL (4.20-5.40); RED CELL DISTRIBUTION WIDTH 14.5 % (12.0-15.0); UNCORRECTED WHITE BLOOD COUNT 9.9 x10^3/uL; WHITE BLOOD COUNT 9.9 x10^3/uL (4.8-10.8)
[2017-05-10 15:33] LABS: ALBUMIN/GLOBULIN RATIO 1.4 (1.0-2.2); BILIRUBIN,TOTAL 0.6 mg/dL (0.2-1.0); CALCIUM 8.8 mg/dL (8.5-10.3); CREATININE 0.6 mg/dL (0.4-1.0); POTASSIUM 3.1 mmol/L (3.5-5.0); TOTAL PROTEIN 7.6 g/dL (6.7-8.2)
--- NOTE | 2017-05-10 15:48 | ED Physician Documentation ---
PD HPI ABD PAIN - Stated complaint Stated Complaint: ABD PX - Chief complaint Chief Complaint: Abd Pain - History obtained from History obtained from: Patient - History of Present Illness Timing - onset: How many days ago (few days of undulating pain. Had had similar with post-op obstruction, improved with time and meds. The patient went to see Dr. Ramires today (he was covering office) and was referred to ED to get some more tests done in timely fashion.) Timing - duration: Days Timing - details: Gradual onset, Still present, Waxing and waning Quality: Aching, Dull, Fullness/distended Location: Epigastric, Periumbilical Radiation: Chest, Lower back Improved by: No: Eating Worsened by: Eating Associated symptoms: Loss of appetite. No: Fever, Nausea, Hematemesis, Constipation, Melena, Hematochezia Similar symptoms before: Has not had sx before Recently seen: Clinic (Dr. Ramires in office today, but had surgery about 4 weeks ago for hyst, Dr. Daniel. had abscess after ad was treated with drainage, IV abx for seeks and is improved.) Review of Systems Constitutional: denies: Fever, Chills Nose: denies: Rhinorrhea / runny nose, Congestion Throat: denies: Oral lesions / sores Skin: reports: Rash, Lesions Musculoskeletal: denies: Neck pain, Back pain Neurologic: denies: Generalized weakness, Focal weakness, Numbness, Near syncope Endocrine: denies: Easy bruising / bleeding Immunocompromised: denies: Immunocompromised PD PAST MEDICAL HISTORY - Past Medical History Cardiovascular: None Respiratory: Asthma Endocrine/Autoimmune: None GI: None, Cholelithiasis : None HEENT: None Psych: None Musculoskeletal: None Derm: None - Past Surgical History Past Surgical History: Yes Ortho: Carpal Tunnel surgery /[employer] 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 - Present Medications Home Medications: Ambulatory Orders Medication Instructions Recorded Confirmed Ibuprofen [Motrin] 800 mg PO Q8H PRN 03/15/17 03/22/17 Bupropion HCl [Bupropion HCl Sr] 150 mg PO BID 03/17/17 03/22/17 Albuterol 2.5 mg INH RTTID neb 03/20/17 03/22/17 Alprazolam [Xanax] 0.25 mg PO Q4HR PRN #12 tablet 03/20/17 03/22/17 Nicotine 14 mg Patch [Nicoderm] 1 patch TOP DAILY #14 patch 03/20/17 03/22/17 oxyCODONE [Roxicodone] 5 mg PO Q4HR PRN #20 tablet 03/20/17 03/22/17 Amox/Clav 875/125 [Augmentin] 1 each PO Q12H #20 tablet 03/28/17 Metronidazole [Flagyl] 500 mg PO TID #30 tablet 03/28/17 Famotidine [Pepcid] 20 mg PO ONCE #30 tablet 05/10/17 Ondansetron HCl [Zofran] 4 mg PO Q6H PRN #20 tablet 05/10/17 Tramadol HCl 50 mg PO Q6H PRN #20 tablet 05/10/17 - Allergies Allergies/Adverse Reactions: Allergies Allergy/AdvReac Type Severity Reaction Status Date / Time No Known Drug Allergies Allergy Verified 05/10/17 15:07 - Social History Does the pt smoke?: Yes Smoking Status: Never smoker Does the pt have substance abuse?: No PD ED PE NORMAL - Vitals Vital signs reviewed: Yes - General General: Alert and oriented X 3, No acute distress, Well developed/nourished - HEENT HEENT: PERRL (nonicteric), Ears normal, Pharynx benign - Neck Neck: Supple, no meningeal sign, No adenopathy - Cardiac Cardiac: RRR, No murmur - Respiratory Respiratory: Clear bilaterally - Abdomen Abdomen: Normal bowel sounds, Soft, Non distended, Other (tender mid to upper abd without guarding nor percussion tenderness. ) - Female Female : Deferred - Rectal Rectal: Deferred - Back Back: No CVA TTP Results - Vitals Vitals: Oxygen O2 Source Room air - Labs Labs: Laboratory Tests 05/10/17 05/10/17 05/10/17 15:16 15:16 16:56 WBC 9.9 RBC 4.66 Hgb 13.4 Hct 40.5 MCV 87.0 MCH 28.7 MCHC 33.0 RDW 14.5 Plt Count 263 MPV 8.6 Neut # 5.3 Lymph # 3.8 H [place] # 0.6 Eos # 0.1 Baso # 0.0 Absolute Nucleated RBC 0.00 Nucleated RBC % 0.1 Sodium 137 Potassium 3.1 L Chloride 103 Carbon Dioxide 27 Anion Gap 7.0 BUN 6 Creatinine 0.6 Estimated GFR (MDRD) 110 Glucose 95 Calcium 8.8 Total Bilirubin 0.6 AST 19 ALT 18 Alkaline Phosphatase 75 Total Protein 7.6 Albumin 4.4 Globulin 3.2 Albumin/Globulin Ratio 1.4 Lipase 20 L Urine Color YELLOW Urine Clarity CLEAR Urine pH 7.0 Ur Specific [place] <=1.005 Urine Protein NEGATIVE Urine Glucose (UA) NEGATIVE Urine Ketones NEGATIVE Urine Occult Blood NEGATIVE Urine Nitrite NEGATIVE Urine Bilirubin NEGATIVE Urine Urobilinogen 0.2 (NORMAL) Ur Leukocyte Esterase NEGATIVE Ur Microscopic Review NOT INDICATED Urine Culture Comments NOT INDICATED - Rads (name of study) abd CT Radiology: Prelim report reviewed PD MEDICAL DECISION MAKING - ED course Complexity details: reviewed results, considered differential, d/w patient, d/w area development consultant (Fredy, will see in follow up) Departure - Departure Disposition: 01 Home, Self Care Clinical Impression: Abdominal pain Qualifiers: Abdominal location: generalized Qualified Code(s): R10.84 - Generalized abdominal pain Condition: Stable Record reviewed to determine appropriate education?: Yes Instructions: Abdominal Pain Follow-Up: Simeon Daniel MD [Provider Admit Priv/Credential] - Prescriptions: Famotidine [Pepcid] 20 mg PO ONCE #30 tablet Ondansetron HCl [Zofran] 4 mg PO Q6H PRN #20 tablet PRN Reason: Nausea / Vomiting Tramadol HCl 50 mg PO Q6H PRN #20 tablet PRN Reason: Pain Comments: Drink lots of fluids. Stop the ibuprofen for now. Use Tylenol 500-650 mg 4 times a day for the next 1-2 weeks. To this add tramadol every 6 hours if needed for pain. Ondansetron if needed for nausea. Continue other usual medications. Follow-up with Dr. Daniel later this week, call tomorrow for an appointment. Right now your blood tests look okay and there is no signs of recurrent abscess nor bowel blockage on CT scan. Potentially your intestines may be irritated from anti-inflammatory use or some other cause. Will try the above regimen for now and see how you do over the next few days. Discharge Date/Time: 05/10/17 18:25
[2017-05-10] MEDS ORDERED: IOPAMIDOL-300 100 ML VIAL ONE (15:59)
[2017-05-10] MEDS ORDERED: IOPAMIDOL-300 100 ML VIAL IVP ONE (16:12)
[2017-05-10] MEDS ORDERED: SODIUM CHLORIDE 0.9% 1,000 ML IV ONE (16:15)
[2017-05-10] MEDS ORDERED: KETOROLAC 60 MG/2 ML VIAL IVP STA (16:15)
[2017-05-10] MEDS ORDERED: HYDROmorphone 0.5 MG/0.5 ML SYRINGE IVP STA (16:15)
[2017-05-10] MEDS ORDERED: ONDANSETRON 4 MG/2 ML VIAL IVP STA (16:15)
--- NOTE | 2017-05-10 16:52 | CT Preliminary Report ---
Exam: CT ABDOMEN/PELVIS W/ IMPRESSION: 1. Decreasing intra-abdominal inflammation with resolution of multiloculated complex peritoneal fluid collection since 03/30/2017. 2. No dilated bowel or obstruction. 3. No new localizing inflammatory process. [facility] SITE ID: [id number]
--- NOTE | 2017-05-10 16:55 | CT Report ---
EXAM: CT ABDOMEN AND PELVIS EXAM DATE: 05/10/2017 04:25 PM. CLINICAL HISTORY: Abdominal pain vomiting. COMPARISONS: 03/30/2017. TECHNIQUE: Routine helical CT imaging was performed through the abdomen and pelvis. IV contrast: 100 cc Isovue-300 IV. Enteric contrast: No. Reconstructions: Coronal and sagittal. In accordance with CT protocol optimization, one or more of the following dose reduction techniques w ere utilized for this exam: automated exposure control, adjustment of mA and/or KV based on patient s ize, or use of iterative reconstructive technique. FINDINGS: Lung Bases: Unremarkable. Liver: Normal. No masses. Gallbladder/Bile Ducts: Unremarkable. Spleen: Normal. Pancreas: Normal. Adrenal Glands: Normal. Kidneys: Normal. No masses or hydronephrosis. Peritoneal Cavity/Bowel: The small bowel is normal in caliber. There is no transition zone or finding s of obstruction. The previously seen loculated fluid collections within the abdomen have resolved. T here is no free air. There are a moderate number of scattered colonic diverticula which appear unchan ged. The appendix appears within normal limits. There are findings of previous lower abdominal incisi on without herniation of bowel. Pelvic Organs: There is a right adnexal structure which appears to represent a right ovary and appear s unchanged. Uterus and left ovary are not seen. Vasculature: No aneurysms or other significant abnormality. Bones: No significant abnormality. Other: None. IMPRESSION: 1. Decreasing intra-abdominal inflammation with resolution of multiloculated complex peritoneal fluid collection since 03/30/2017. 2. No dilated bowel or obstruction. 3. No new localizing inflammatory process. [facility] Referring Provider Line: [phone] SITE ID: [id number]
[2017-05-10 17:07] LABS: BILIRUBIN,URINE NEGATIVE (NEGATIVE); UA CHARGE (STRIP ONLY) YES; UR CULTURE IF IND NOT INDICATED
[2017-05-10] MEDS ORDERED: ONDANSETRON 4 MG/2 ML VIAL ONE (17:27)
[2017-05-10] MEDS ORDERED: KETOROLAC 30 MG/ML VIAL ONE (17:28)
[2017-05-10] MEDS ORDERED: HYDROmorphone 1 MG/ML SYRINGE ONE (17:29)
[2017-05-10 18:14] VITALS: BP 200/109
--- NOTE | 2017-05-11 16:04 | ED Physician Documentation ---
ED Addendum - Addendum Addendum: 05/11/17 16:03 Took call from Krunal, needed clarifications on famotidine, labeled as "once." Told them it should be BID.
== END 2017-05-10 18:25 | disposition home or self-care (01) ==
LOC: ED 14:49
DX: R10.84 Generalized abdominal pain (principal); J45.909 Unspecified asthma, uncomplicated
CPT/HCPCS: 36415; 74177; 80053; 81003; 83690; 85025; 96361; 96374; 96375; 99283; 99284; J1170; Q9967; 81001; 87086

== ENCOUNTER 2022-05-23 16:44 | Emergency (ER) | payer BC, OTHER ==
[2022-05-23 16:57] VITALS: BP 169/112
[2022-05-23] MEDS ORDERED: SULFAMETH/TRIMETH DS 800/160 MG TABLET PO STA (17:11)
[2022-05-23] MEDS ORDERED: AMOX/CLAV 875 MG/125 MG TABLET PO STA (17:11)
--- NOTE | 2022-05-23 17:13 | ED Physician Documentation ---
PD HPI WOUND RECHECK - Stated complaint Stated Complaint: NECK RASHES - Chief complaint Chief Complaint: Wound - Histroy obtained from History obtained from: Patient - Additional information Additional information: Couple of days ago she was scratched by her dog and over the last day has developed increased pain and swelling in the left submandibular area where the scratch was. No fevers or chills. 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 - Present Medications Home Medications: Ambulatory Orders Medication Instructions Recorded Confirmed Ibuprofen [Motrin] 800 mg PO Q8H PRN 03/15/17 03/22/17 buPROPion HCL [Bupropion HCl Sr] 150 mg PO BID 03/17/17 03/22/17 Albuterol 2.5 mg INH RTTID neb 03/20/17 03/22/17 Alprazolam [Xanax] 0.25 mg PO Q4HR PRN #12 tablet 03/20/17 03/22/17 Nicotine 14 mg Patch [Nicoderm] 1 patch TOP DAILY #14 patch 03/20/17 03/22/17 oxyCODONE [Roxicodone] 5 mg PO Q4HR PRN #20 tablet 03/20/17 03/22/17 Amox/Clav 875/125 [Augmentin] 1 each PO Q12H #20 tablet 03/28/17 metroNIDAZOLE [Flagyl] 500 mg PO TID #30 tablet 03/28/17 Famotidine [Pepcid] 20 mg PO ONCE #30 tablet 05/10/17 Tramadol HCl 50 mg PO Q6H PRN #20 tablet 05/10/17 ondansetron HCL [Zofran] 4 mg PO Q6H PRN #20 tablet 05/10/17 Amox/Clav 875/125 [Augmentin] 1 each PO Q12H #14 tablet 05/23/22 HYDROcod/ACETAM 5/325 [Bee 5/325] 1 - 2 tab PO Q6H PRN #15 tablet 05/23/22 Sulfamethox/Trimeth 800/160 1 each PO BID #14 tablet 05/23/22 [Bactrim Ds 800/160] - Allergies Allergies/Adverse Reactions: Allergies Allergy/AdvReac Type Severity Reaction Status Date / Time codeine AdvReac Hives Verified 05/23/22 16:52 - Social History Does the pt smoke?: Yes Smoking Status: Never smoker Does the pt drink ETOH?: Yes Does the pt have substance abuse?: No PD ED PE NORMAL - Vitals Vital signs reviewed: Yes - General General: Alert and oriented X 3, No acute distress - HEENT HEENT: PERRL, EOMI - Neck Neck: Other (There is a small pointed abscess with significant surrounding induration and mild overlying cellulitis to the left submandibular area. Intraoral exam is normal without Sublingual edema.) - Neuro Neuro: Alert and oriented X 3, Normal speech Results - Vitals Vitals: Vital Signs - 24 hr 05/23/22 05/23/22 16:50 16:57 Temperature 36.8 C Heart Rate 105 H Respiratory 14 Rate Blood Pressure 213/130 H 169/112 H O2 Saturation 98 Oxygen O2 Source Room air Procedures - Abscess I&D (location) Left jaw Preparation: Alcohol, Lidocaine 1% Incision: Incised with scalpel, Purulent drainage, Loculations broken, Culture obtained, Other (Not packed as too small) Other: Pt tolerated well, Dressing applied, Antibiotic prescribed PD MEDICAL DECISION MAKING - ED course ED course: 46-year-old woman with facial abscess related to a dog scratch. It has the look of more of a staphylococcal abscess but given the dog scratch we will double cover her with both Augmentin for animal related apoorva and Bactrim for potential staph. A culture was obtained. She will return for a wound check in 2 days unless much much better. Departure - Departure Disposition: 01 Home, Self Care Clinical Impression: Facial cellulitis Condition: Good Record reviewed to determine appropriate education?: Yes Instructions: ED Abscess IandD, ED Infec Skin Cellulitis Prescriptions: Amox/Clav 875/125 [Augmentin] 1 each PO Q12H #14 tablet Sulfamethox/Trimeth 800/160 [Bactrim Ds 800/160] 1 each PO BID #14 tablet HYDROcod/ACETAM 5/325 [Bee 5/325] 1 - 2 tab PO Q6H PRN #15 tablet PRN Reason: Pain Comments: I sent your prescription electronically to [facility] in [place]. We are performing a wound culture, the results should be done in 48-72 hours. If antibiotic change is necessary we will call you. Return if worse in the meantime, especially if you develop increased pain, fevers, cannot keep down the medication. Otherwise if not much much improved please return Wednesday for a wound check.
== END 2022-05-23 17:35 | disposition home or self-care (01) ==
LOC: ED 16:44
DX: L03.211 Cellulitis of face (principal)
CPT/HCPCS: 10060; 87070; 87181; 87205; 99283; A9270